=== PATIENT | male | born 1955 | race Caucasian/White ===

== ENCOUNTER 2020-10-27 10:13 | Outpatient (REF) | payer BC, SELFPAY ==
[2020-10-27 10:19] LABS: MANUAL DIFF FLAG NO
[2020-10-27 10:28] LABS: Basophils Absolute Auto 0.1 X10*3/uL (0.0-0.2); Basophils Percent Auto 0.8 % (0-2); Eosinophils Absolute Auto 0.3 X10*3/uL (0.0-0.4); Eosinophils Percent Auto 4.7 % (0-4); Hematocrit 41.9 % (42-52); Hemoglobin 13.8 g/dl (14.0-18.0); Imm Gran Abs Auto 0.02 X10*3/uL (0.00-0.03); Imm Gran Pct Auto 0.3 % (0.0-0.4); Lymphocytes Absolute Auto 1.7 X10*3/uL (1.2-4.9); Mean Corpuscular HGB Conc 32.9 g/dl (31.0-36.0); Mean Corpuscular Hemoglobin 29.1 pg (27.0-33.0); Mean Corpuscular Volume 88.4 fL (80-98); Monocytes Absolute Auto 0.7 X10*3/uL (0.1-1.2); Monocytes Percent Auto 10.6 % (2-11); Neutrophils Absolute Auto 3.7 X10*3/uL (2.0-8.3); Neutrophils Percent Auto 57.6 % (45-73); Platelet Count 283 X10*3/uL (160-400); Red Blood Count 4.74 X10*6/uL (4.60-5.80); Red Cell Distribution Width 13.6 % (11.0-16.0); White Blood Count 6.4 X10*3/uL (4.8-10.8)
[2020-10-27 10:54] LABS: Appearance Urine CLEAR; Color Urine YELLOW; Glucose Urine UA NEG (NEG); Leukocyte Esterase Urine NEG (NEG); Nitrite Urine NEG (NEG); PH 5.5 (5.0-8.0); Specific Gravity - Urine >= 1.030 (1.005-1.025); Urine Blood NEG (NEG); Urine Ketones NEG (NEG); Urine Protein NEG (NEG-TRACE)
[2020-10-27 11:15] LABS: Alanine Aminotransferase 14 U/L (0-40); Albumin Level 3.9 g/dL (3.5-5.0); Alkaline Phosphatase 57 U/L (39-117); Anion Gap 11 (12-20); Aspartate Amino Transferase 14 U/L (5-37); Bilirubin Total 0.3 mg/dL (0.0-1.0); Blood Urea Nitrogen 16 mg/dL (9-16); Calcium 9.2 mg/dL (8.4-10.2); Carbon Dioxide 25 mmol/L (22-29); Chloride 111 mmol/L (96-108); Cholesterol 167 mg/dL; Estimated Glomerular Filt Rate > 60; Glucose Fasting 96 mg/dL (60-99); HDL Cholesterol 43 mg/dL; LDL Cholesterol Calculated 105 mg/dl; Potassium 3.9 mmol/L (3.3-5.1); Sodium 143 mmol/L (135-145); Total Protein 6.3 g/dL (6.5-8.0); Triglycerides 97 mg/dL
[2020-10-27 11:25] LABS: Reflex LDLD? No
[2020-10-27 11:39] LABS: PSA,Total (Free>4and<10) 2.71 ng/mL (0.00-4.00)
== END 2020-10-27 10:14 | disposition home or self-care (01) ==
LOC: HO.LNP 10:13
PROVIDERS: Visit Provider Internal Medicine
DX: Z00.00 Encounter for general adult medical examination without abnormal findings (principal); E78.00 Pure hypercholesterolemia, unspecified; R97.20 Elevated prostate specific antigen [PSA]
CPT/HCPCS: 80053; 80061; 81003; 84153; 85025

== ENCOUNTER 2021-05-04 11:09 | Outpatient (REF) | payer BC, SELFPAY ==
[2021-05-04 12:25] LABS: Alanine Aminotransferase 12 U/L (0-40); Albumin Level 3.9 g/dL (3.5-5.0); Alkaline Phosphatase 69 U/L (39-117); Aspartate Amino Transferase 14 U/L (5-37); Bilirubin Direct 0.2 mg/dL (0.0-0.5); Bilirubin Total 0.5 mg/dL (0.0-1.0); Cholesterol 163 mg/dL; HDL Cholesterol 42 mg/dL; LDL Cholesterol Calculated 104 mg/dl; Total Protein 6.3 g/dL (6.5-8.0); Triglycerides 85 mg/dL
[2021-05-04 12:56] LABS: Reflex LDLD? No
== END 2021-05-04 11:10 | disposition home or self-care (01) ==
LOC: HO.LNP 11:09
PROVIDERS: PCP Internal Medicine; Visit Provider Internal Medicine
DX: E78.00 Pure hypercholesterolemia, unspecified (principal)
CPT/HCPCS: 80061; 80076

== ENCOUNTER 2021-10-30 15:37 | Outpatient (REF) | payer BC, SELFPAY ==
[2021-10-30 15:44] LABS: MANUAL DIFF FLAG NO
[2021-10-30 15:54] LABS: Appearance Urine Clear; Color Urine Dark Yellow; Glucose Urine UA Negative (Negative); Leukocyte Esterase Urine Negative (Negative); Nitrite Urine Negative (Negative); Specific Gravity - Urine >= 1.030 (1.005-1.025); Urine Blood Negative (Negative); Urine Ketones Negative (Negative); Urine Protein Negative (Neg-Trace)
[2021-10-30 15:56] LABS: Basophils Percent Auto 0.5 % (0-2); Eosinophils Absolute Auto 0.2 X10*3/uL (0.0-0.4); Eosinophils Percent Auto 2.4 % (0-4); Hematocrit 40.7 % (42.0-52.0); Hemoglobin 13.3 g/dl (14.0-18.0); Imm Gran Abs Auto 0.01 X10*3/uL (0.00-0.03); Imm Gran Pct Auto 0.2 % (0.0-0.4); Lymphocytes Absolute Auto 1.7 X10*3/uL (1.2-4.9); Lymphocytes Percent Auto 25.4 % (20-40); Mean Corpuscular HGB Conc 32.7 g/dl (31.0-36.0); Mean Corpuscular Hemoglobin 28.1 pg (27.0-33.0); Mean Platelet Volume 10.1 fL (9.4-12.4); Monocytes Absolute Auto 0.6 X10*3/uL (0.1-1.2); Monocytes Percent Auto 9.7 % (2-11); Neutrophils Absolute Auto 4.1 x10*3/uL (2.0-8.3); Neutrophils Percent Auto 61.8 % (45-73); Platelet Count 284 X10*3/uL (160-400); Red Blood Count 4.73 X10*6/uL (4.60-5.80); Red Cell Distribution Width 13.4 % (11.0-16.0); White Blood Count 6.6 X10*3/uL (4.8-10.8)
[2021-10-30 16:02] LABS: Bacteria Urine None Seen (None Seen); Hyaline Casts Urine 0-2 /LPF (0-2); RBC Urine 0-2 /HPF (0-2); Squamous Epithelial Cell Urine 0-2 /HPF (0-2); WBC Urine 0-5 /HPF (0-5)
[2021-10-30 16:08] LABS: Alanine Aminotransferase 14 U/L (0-40); Albumin Level 3.9 g/dL (3.5-5.0); Alkaline Phosphatase 59 U/L (39-117); Anion Gap 13 (12-20); Aspartate Amino Transferase 15 U/L (5-37); Bilirubin Direct 0.2 mg/dL (0.0-0.5); Bilirubin Total 0.6 mg/dL (0.0-1.0); Blood Urea Nitrogen 13 mg/dL (9-16); Carbon Dioxide 23 mmol/L (22-29); Chloride 110 mmol/L (96-108); Cholesterol 174 mg/dL; Estimated Glomerular Filt Rate > 60; Glucose Fasting 97 mg/dL (60-99); HDL Cholesterol 50 mg/dL; LDL Cholesterol Calculated 108 mg/dl; Potassium 3.6 mmol/L (3.3-5.1); Sodium 142 mmol/L (135-145); Total Protein 6.3 g/dL (6.5-8.0); Triglycerides 80 mg/dL
[2021-10-30 16:28] LABS: PSA,Total (Free>4and<10) 1.98 ng/mL (0.00-4.00)
== END 2021-10-30 15:38 | disposition home or self-care (01) ==
LOC: HO.LNP 15:37
PROVIDERS: Visit Provider Internal Medicine
DX: Z00.01 Encounter for general adult medical examination with abnormal findings (principal); J45.30 Mild persistent asthma, uncomplicated; E78.00 Pure hypercholesterolemia, unspecified; R97.20 Elevated prostate specific antigen [PSA]; Z12.5 Encounter for screening for malignant neoplasm of prostate
CPT/HCPCS: 80053; 80061; 80076; 81001; 82248; 84153; 85025

== ENCOUNTER 2022-11-05 07:15 | Outpatient (REF) | payer BC, SELFPAY ==
[2022-11-05 10:54] LABS: MANUAL DIFF FLAG NO
[2022-11-05 11:14] LABS: Basophils Absolute Auto 0.1 X10*3/uL (0.0-0.2); Basophils Percent Auto 0.8 % (0-2); Eosinophils Absolute Auto 0.3 X10*3/uL (0.0-0.4); Eosinophils Percent Auto 3.4 % (0-4); Hemoglobin 13.8 g/dl (14.0-18.0); Imm Gran Abs Auto 0.03 X10*3/uL (0.00-0.03); Imm Gran Pct Auto 0.4 % (0.0-0.4); Lymphocytes Absolute Auto 1.7 X10*3/uL (1.2-4.9); Lymphocytes Percent Auto 22.8 % (20-40); Mean Corpuscular HGB Conc 32.9 g/dl (31.0-36.0); Mean Corpuscular Hemoglobin 28.8 pg (27.0-33.0); Mean Corpuscular Volume 87.7 fL (80.0-98.0); Mean Platelet Volume 10.1 fL (9.4-12.4); Monocytes Absolute Auto 0.7 X10*3/uL (0.1-1.2); Neutrophils Absolute Auto 4.6 x10*3/uL (2.0-8.3); Neutrophils Percent Auto 62.6 % (45-73); Platelet Count 276 X10*3/uL (160-400); Red Blood Count 4.79 X10*6/uL (4.60-5.80); Red Cell Distribution Width 13.4 % (11.0-16.0); White Blood Count 7.3 X10*3/uL (4.8-10.8)
[2022-11-05 11:19] LABS: Appearance Urine Clear; Color Urine Yellow; Glucose Urine UA Negative (Negative); Leukocyte Esterase Urine Negative (Negative); Nitrite Urine Negative (Negative); PH 5.5 (5.0-9.0); Urine Blood Negative (Negative); Urine Ketones Negative (Negative); Urine Protein Negative (Neg-Trace)
[2022-11-05 11:25] LABS: Bacteria Urine None Seen (None Seen); Hyaline Casts Urine 0-2 /LPF (0-2); RBC Urine 0-2 /HPF (0-2); Squamous Epithelial Cell Urine 0-2 /HPF (0-2); WBC Urine 0-5 /HPF (0-5)
[2022-11-05 11:28] LABS: Alanine Aminotransferase 26 U/L (0-40); Albumin Level 3.8 g/dL (3.5-5.0); Alkaline Phosphatase 56 U/L (39-117); Anion Gap 10 (12-20); Aspartate Amino Transferase 20 U/L (5-37); Bilirubin Total 0.4 mg/dL (0.0-1.0); Blood Urea Nitrogen 14 mg/dL (9-16); Calcium 9.3 mg/dL (8.4-10.2); Carbon Dioxide 25 mmol/L (22-29); Chloride 109 mmol/L (96-108); Cholesterol 166 mg/dL (<200); Estimated Glomerular Filt Rate > 60; Glucose Random 101 mg/dL (60-115); HDL Cholesterol 46 mg/dL (>40); LDL Cholesterol Calculated 105 mg/dL (<100); Potassium 3.8 mmol/L (3.3-5.1); Sodium 140 mmol/L (135-145); Total Protein 6.6 g/dL (6.5-8.0); Triglycerides 78 mg/dL (<150)
[2022-11-05 11:49] LABS: Prostate Specific Antigen 1.85 ng/mL (<0.05-4.0)
== END 2022-11-05 07:16 | disposition home or self-care (01) ==
LOC: HO.LNP 07:15
PROVIDERS: Visit Provider Internal Medicine
DX: Z00.00 Encounter for general adult medical examination without abnormal findings (principal); Z12.5 Encounter for screening for malignant neoplasm of prostate; R97.20 Elevated prostate specific antigen [PSA]; E78.00 Pure hypercholesterolemia, unspecified
CPT/HCPCS: 80053; 80061; 81001; 84153; 85025

== ENCOUNTER 2023-11-22 10:35 | Outpatient (REF) | payer BC, SELFPAY ==
[2023-11-22 10:38] LABS: MANUAL DIFF FLAG NO
[2023-11-22 11:14] LABS: Appearance Urine Clear; Color Urine Dark Yellow; Glucose Urine UA Negative (Negative); Leukocyte Esterase Urine Negative (Negative); Nitrite Urine Negative (Negative); PH 5.5 (5.0-9.0); Specific Gravity - Urine >= 1.030 (1.005-1.025); Urine Blood Negative (Negative); Urine Ketones Trace mg/dL (Negative); Urine Protein Trace mg/dL (Neg-Trace)
[2023-11-22 11:22] LABS: Bacteria Urine None Seen (None Seen); Hyaline Casts Urine 0-2 /LPF (0-2); RBC Urine 0-2 /HPF (0-2); Squamous Epithelial Cell Urine 0-2 /HPF (0-2); WBC Urine 0-5 /HPF (0-5)
[2023-11-22 11:35] LABS: Basophils Absolute Auto 0.1 X10*3/uL (0.0-0.2); Basophils Percent Auto 1.1 % (0-2); Eosinophils Absolute Auto 0.3 X10*3/uL (0.0-0.4); Eosinophils Percent Auto 4.7 % (0-4); Hematocrit 42.9 % (42.0-52.0); Hemoglobin 14.2 g/dl (14.0-18.0); Imm Gran Abs Auto 0.01 X10*3/uL (0.00-0.03); Imm Gran Pct Auto 0.2 % (0.0-0.4); Lymphocytes Absolute Auto 1.7 X10*3/uL (1.2-4.9); Lymphocytes Percent Auto 30.1 % (20-40); Mean Corpuscular HGB Conc 33.1 g/dl (31.0-36.0); Mean Corpuscular Hemoglobin 28.9 pg (27.0-33.0); Mean Corpuscular Volume 87.4 fL (80.0-98.0); Mean Platelet Volume 9.8 fL (9.4-12.4); Monocytes Absolute Auto 0.7 X10*3/uL (0.1-1.2); Neutrophils Absolute Auto 2.9 x10*3/uL (2.0-8.3); Neutrophils Percent Auto 50.9 % (45-73); Platelet Count 294 X10*3/uL (160-400); Red Blood Count 4.91 X10*6/uL (4.60-5.80); Red Cell Distribution Width 13.4 % (11.0-16.0); White Blood Count 5.7 X10*3/uL (4.8-10.8)
[2023-11-22 11:42] LABS: Alanine Aminotransferase 15 U/L (0-40); Albumin Level 3.9 g/dL (3.5-5.0); Alkaline Phosphatase 66 U/L (39-117); Anion Gap 13 (12-20); Aspartate Amino Transferase 17 U/L (5-37); Bilirubin Total 0.5 mg/dL (0.0-1.0); Blood Urea Nitrogen 15 mg/dL (9-16); Calcium 9.5 mg/dL (8.4-10.2); Carbon Dioxide 24 mmol/L (22-29); Chloride 111 mmol/L (96-108); Cholesterol 169 mg/dL (<200); Estimated Glomerular Filt Rate > 60; Glucose Fasting 107 mg/dL (60-99); HDL Cholesterol 44 mg/dL (>40); LDL Cholesterol Calculated 110 mg/dL (<100); Potassium 4.2 mmol/L (3.3-5.1); Sodium 144 mmol/L (135-145); Total Protein 6.6 g/dL (6.5-8.0); Triglycerides 79 mg/dL (<150)
[2023-11-22 11:50] LABS: PSA,Total (Free>4and<10) 2.42 ng/mL (0.00-4.00)
== END 2023-11-22 10:36 | disposition home or self-care (01) ==
LOC: HO.LNP 10:35
PROVIDERS: Visit Provider Internal Medicine
DX: Z00.00 Encounter for general adult medical examination without abnormal findings (principal); E78.00 Pure hypercholesterolemia, unspecified; R97.20 Elevated prostate specific antigen [PSA]; Z12.5 Encounter for screening for malignant neoplasm of prostate
CPT/HCPCS: 80053; 80061; 81001; 84153; 85025

== ENCOUNTER 2023-11-29 13:31 | Outpatient (REF) | payer BC, SELFPAY ==
--- NOTE | ~2023-11-29 | XR_ITS ---
EXAMINATION: XR ANKLE, LEFT CLINICAL INFORMATION: Left ankle injury, pain COMPARISON: None available. TECHNIQUE: AP, lateral, and mortise views of the left ankle. FINDINGS: No acute fracture or malalignment. The ankle mortise is preserved. There is a chronic ossification at the tip of the distal fibula. Diffuse subcutaneous edema. XR/XR ankle LT min 3V IMPRESSION: No acute fracture or malalignment. Diffuse subcutaneous edema. Electronically signed by: Deshawn Hilario MD 11/29/2023 03:51 PM EDT
== END 2023-11-29 13:32 | disposition home or self-care (01) ==
LOC: HO.XRAY 13:31
PROVIDERS: PCP Internal Medicine; Visit Provider Internal Medicine
DX: S99.912A Unspecified injury of left ankle, initial encounter (principal)
CPT/HCPCS: 73610

== ENCOUNTER 2024-05-19 10:17 | Outpatient (REF) | payer BC, SELFPAY ==
[2024-05-19 11:06] LABS: Alanine Aminotransferase 12 U/L (0-40); Albumin Level 3.9 g/dL (3.5-5.0); Alkaline Phosphatase 58 U/L (39-117); Aspartate Amino Transferase 25 U/L (5-37); Bilirubin Direct 0.2 mg/dL (0.0-0.5); Bilirubin Total 0.4 mg/dL (0.0-1.0); Cholesterol 172 mg/dL (<200); HDL Cholesterol 46 mg/dL (>40); LDL Cholesterol Calculated 113 mg/dL (<100); Triglycerides 67 mg/dL (<150)
--- OUTSIDE RECORDS SUMMARY | 2024-05-19 12:10 | XMS_ITS | Encounter Summary ---
Author Name [facility] ([place]) Organization [facility] Address [address] [place] [id number] Care Team Providers Care Wallpaper Scraper Name Role Phone KI HEDRICK Primary Care [...] Hoover's Name Patient's Relationship to Policy Hoover EBNJAMÍN [facility] FEDERAL PREFERRED PROVIDER ORGANIZAT ION (PPO) STAND GEOVANNY FAMIL Y Apr 05, 2001 [id number] CASIE BOO PATIENT BCBS [place] FEP PREFERRED PROVIDER ORGANIZAT ION (PPO) PSHB STD SELF PLUS 1 Mar 11, 2024 [id number] CASIE BOO EPH PATIENT [place] FEP PREFERRED PROVIDER ORGANIZAT ION (PPO) STAND GEOVANNY FAMIL Y Oct 27, 2009 105 [id number] CASIE BOO PATIENT [place] FEP BCBS PRESCRIPT ION CAREM ARK FEPRX PLAN July 27, 2010 [id number] CASIE BOO PATIENT [place] FEPRX PLAN PRESCRIPT ION CAREM ARK FEPRX Apr 05, 2001 [id number] CASIE BOO PATIENT Selected Encounter This section includes the information on record at [place] for the Encounter. Date/Time Encounter Type Encounter Description Reason Provider Source Apr 10, 2024 01:30 PM OFFICE O/P EST MOD 30 MIN PRIMARY CARE/MEDICINE ICD-10-CM N20.0 Calculus of kidney RAJWILL STEW F IHE Encounter Template Text not used by [place] Assessments - Encounter Diagnoses This section includes the primary and secondary diagnoses documented for the Encounter. Date/Time Primary/Secondary Diagnosis Diagnosis Name Provider Source Apr 25, 2024 07:47 AM PRIMARY Calculus of kidney [facility]DA [facility]EDR[facility] Apr 25, 2024 07:47 AM SECONDARY Encounter for immunization ALDA HEDRICK [facility] [place] [facility] Apr 25, 2024 07:47 AM SECONDARY Hyperlipidemia, unspecified ALDA HEDRICK [facility] Plan of Treatment: Future Appointments (+ 6 months) and Future Tests (+/- 45 days) The Plan of Treatment section includes future care activities for the patient from all [place] treatmentfacilities. This section includes future appointments and [...] of theEncounter. The data comes from all [place] treatment facilities. Test Date/Time Test Type Test Details Facility Name Mar 05, 2024 12:00 AM Laboratory - Chemi stry Order BASIC METABOLIC PANEL (fasting) BLOOD (SST-SERUM) [facility] Mar 05, 2024 12:00 AM Laboratory - Chemi stry Order LIVER FUNCTION BLOOD (SST-SERUM) [facility] Mar 05, 2024 12:00 AM Laboratory - Chemi stry Order CBC AND DIFF (AUTO) BLOOD (LAV-BLOOD) [facility] Mar 05, 2024 12:00 AM Laboratory - Chemi stry Order LIPID PANEL FASTING BLOOD (SST-SERUM) [facility] Lab Results: +/- 30 days of the encounter This section includes the Chemistry and Hematology Lab Results on record with [place] for the patient. Radiology Reports and Pathology Reports are provided separately, in subsequent sections. Lab Results This section contains the Chemistry/Hematology Results that were resulted 30 days before or 30 daysafter the date of the Encounter. Date/Time Source Result Type Result - Unit Interpretation Reference Range Comment Apr 10, 2024 12:38 PM [facility] LIPID PANEL FASTING Specimen Type: SERUM No comment entered. Ordering Provider: ALDA HEDRICK Report Released Date/Time: Apr 01, 2024 10:17 AM Reporting Lab: [address] [address] Performing Lab: [address] [address] CHOLESTEROL 206 mg/dL H TRIGLYCERIDE 88 mg/dL 0-150 LDL calculated 142 mg/dL H 0-129 CHOL/HDL 4.5 HDL CHOLESTEROL 46 mg/dL 40-60 Apr 10, 2024 12:38 PM [facility] LIVER FUNCTION Specimen Type: SERUM No comment entered. Ordering Provider: ALDA HEDRICK Report Released Date/Time: Apr 01, 2024 10:17 AM Reporting Lab: [address] [address] Performing Lab: [address] [address] PROTEIN,TOTAL 6.6 g/dL 6.0-8.3 ALBUMIN 3.5 g/dL 3.5-5.0 ALKALINE PHOSPHATASE 60 U/L 40-150 AST 15 U/L 5-34 ALT 16 U/L BILIRUBIN, TOTAL 0.4 mg/dL 0.2-1.2 Apr 10, 2024 12:38 PM [facility] BASIC METABOLIC PANEL (fasting) Specimen Type: SERUM No comment entered. Ordering Provider: ALDA HEDRICK Report Released Date/Time: Apr 01, 2024 10:17 AM Reporting Lab: [facility] [address] [facility] [address] Performing Lab: [facility] [address] [facility] [address] UREA NITROGEN 16 mg/dL 7-25 GLUCOSE 95 mg/dL 65-100 SODIUM 141 mmol/L 135-145 POTASSIUM 4.3 mmol/L 3.5-5.0 CHLORIDE 110 mmol/L 100-110 CO2 22 meq/L 20-30 CREATININE, Serum 0.95 mg/dL 0.50-1.40 eGFR(CKD-EPI 2020) 86 mL/min >60 Apr 10, 2024 12:38 PM [facility] CBC AND DIFF (AUTO) Specimen Type: BLOOD No comment entered. Ordering Provider: ALDA HEDRICK Report Released Date/Time: Apr 01, 2024 10:17 AM Reporting Lab: [facility] [address] [facility] [address] Performing Lab: [address] [address] WBC 5.67 10*3/uL 4.50-11.00 RBC 4.61 10*6/uL [...] 0.4 0.0-0.7 IMMATURE GRAN, ABS 0.02 10*3/uL 0.00-0.06 NRBC % 0.0 0.0-0.0 NRBC, ABS 0.00 10*3/uL 0.00-0.00 Vital Signs: All taken on the encounter date This section contains inpatient and outpatient Vital Signs collected on the date of the Encounter. Date/Time Temperature Pulse Blood Pressure Respiratory Rate SP02 Pain Height Weight Body Mass Index Source Apr 10, 2024 01:20 PM 98.4 74 140/90 16 98 0 218 31 [place] [facility] [place] [facility] Immunizations: All administered on the encounter date This section contains immunizations associated to the Encounter. Immunization Series Date Issued Reaction Comments TDAP Apr 10, 2024 Social History: Smoking Status (Most current) and Tobacco Use (All prior to encounter date) This section includes the most current, and the historical, smoking and tobacco- related health factors from the [place] facility where the Encounter took place. Current Smoking Status This section includes the most current smoking, or tobacco-related health factor, from the [place] facility where the Encounter took place. Date/Time Current Smoking Status Comment [facility] Apr 10, 2024 01:30 PM VA-TOBACCO USE FOR ARTI CIGARETTES [facility] Tobacco Use History This section includes a history of the smoking, or tobacco-related health factors, that were collected on or before the date of the Encounter. The data comes from the [place] facility where the Encounter took place. Date/Time Smoking Status/Tobac co Use Comment Facility Apr 10, 2024 01:30 PM VA-TOBACCO USE FORMER CIGARETTES [place] [facility] [place] [facility] Mar 05, 2023 08:00 AM VA-TOBACCO FORMER USER [place] [facility] [place] [facility] Mar 05, 2023 08:00 AM VA-TOBACCO QUIT 15 YRS OR MORE [place] [facility] [place] [facility] Mar 06, 2022 08:30 AM VA-TOBACCO FORMER USER [place] [facility] [place] [facility] Mar 06, 2022 08:30 AM VA-TOBACCO QUIT 15 YRS OR MORE [place] [facility] [place] [facility] Mar 06, 2021 08:30 AM VA-TOBACCO FORMER USER [place] [facility] [place] [facility] Mar 06, 2021 08:30 AM VA-TOBACCO QUIT 15 YRS OR MORE [place] [facility] [place] [facility] Feb 02, 2020 08:00 AM VA-TOBACCO FORMER USER [place] [facility] [place] [facility] Feb 02, 2020 08:00 AM VA-TOBACCO QUIT 15 YRS OR MORE [place] [facility] [place] [facility] Oct 28, 2017 08:55 AM LIFETIME NON-TOBACCO USER [place] [facility] [place] [facility] Sep 04, 2016 01:54 PM QUIT TOBACCO USE > 7 YEARS AGO [place] [facility] [place] [facility] Aug 18, 2015 08:48 AM QUIT TOBACCO USE > 7 YEARS AGO quit 50 yrs ago [place] [facility] [place] [facility] Apr 24, 2011 01:09 PM QUIT TOBACCO USE > 7 YEARS AGO [place] [facility] [place] [facility] Apr 10, 2010 09:50 AM QUIT TOBACCO USE 1-7 YEARS AGO [place] [facility] [place] [facility] Jul 08, 2009 08:35 AM QUIT TOBACCO USE 1-7 YEARS AGO [place] [facility] [place] [facility] July 20, 2008 09:56 AM QUIT TOBACCO USE 1-7 YEARS AGO [place] [facility] [place] [facility] Aug 13, 2007 08:25 AM QUIT TOBACCO USE 1-7 YEARS AGO [place] [facility] [place] [facility] Jun 23, 2007 08:00 AM QUIT TOBACCO USE 1-7 YEARS AGO [place] [facility] [place] [facility] Jan 09, 2007 07:56 AM QUIT TOBACCO USE IN PAST YEAR [place] [facility] [place] [facility] Mar 14, 2006 09:05 AM QUIT TOBACCO USE 1-7 YEARS AGO I quit in October. [place] [facility] [place] [facility] Feb 28, 2006 08:06 AM QUIT TOBACCO USE IN PAST YEAR QUIT OCTOBER 2005 [facility] [place] [facility] Advance Directives: All historical and current Section Date Range: From patient's date of to the date document was created. This section includes ALL of a patient's completed or amended [place] Advance and Rescinded Directives. The entries below indicate that a directive exists for the patient, but an actual copy is not included with this document. The data comes from all [place] facilities. Date Advance Directives Provider Source Sep 24, 2002 ADVANCE DIRECTIVE GAURAVROXANA P [facility] Encounter Notes: All associated encounter notes This section contains the clinical notes associated to the Encounter. Date/Time Encounter Note(s) Provider Source Apr 10, 2024 03:18 PM LETTERS: LOCAL TITLE: PATIENT LETTER (B) STANDARD TITLE: LETTERS DATE OF NOTE: APR 10, 2024@15:18 ENTRY DATE: APR 10, 2024@15:18:16 AUTHOR: KI HEDRICK EXP COSIGNER: URGENCY: STATUS: COMPLETED The following letter was mailed to ADOLFO BOO on APR 10, [address] [place] [id number] APR 10, [address], : Feb Your recent labs were as expected. No change in your care plan is needed. Please share with any NONVA providers. Results are viewable thru [facility]. Below are your pending appointments at the [facility]: 04/09/2025 08:00 CWM/NO/PACT 3 If you have questions, please contact me through our Telephone Advice Program at: [phone] extension [phone] or [phone] extension [phone] (toll free in this region only). Sincerely, Ki Hedrick PA-C [address] [address] Ex KI HEDRICK [facility] Apr 10, 2024 01:38 PM PHYSICIAN VOCAL MUSIC INSTRUCTOR NOTE: LOCAL TITLE: LÓPEZ CARDOZA STANDARD TITLE: PHYSICIAN VOCAL MUSIC INSTRUCTOR NOTE DATE OF NOTE: APR 10, 2024@13:38 [...] the source for the followin. Kidney Stone ([facility] [id number]) 2. Exposure to potentially hazardous substance Original RANDALL Screening completed 03/06/24 3. Hyperlipidemia ([facility] [id number]) 4. Arthritis, Psoriatic * 5. Osteoarthritis 6. [...] DAY 6) Non-VA OTHER CAP/TAB DULERA ACTIVE ([id number] 2PUFFS BY MOUTH TWICE DAILY 7) Non-VA [...] an Advance Directive on file at this [facility]. No updates are needed at this time. [...] you were unable to say no Never ?? The HITS tool (items 1-4 above) is [place] copyright protected by Vickey Perdomo MD, and the user has full rights to use it throughout the [place] system. PRIMARY SCREEN RESULT: The Primary Screen is NEGATIVE. The individual answered never to all forms of IPV above (i.e., answered never to all 5 items) The individual accepts education and/or resources: Other: EDUCATION: Other: /guerrero/ Ki Hedrick PA-C STAFF PHYSICIAN VOCAL MUSIC INSTRUCTOR Signed: 04/10/2024 13:42 KI HEDRICK [place] [facility] [place] [facility] Apr 10, 2024 01:21 PM PREVENTIVE MEDICINE NURSING NOTE: LOCAL TITLE: CLINICAL REMINDERS/NURSING STANDARD TITLE: PREVENTIVE MEDICINE NURSING NOTE DATE OF NOTE: APR 10, 2024@13:21 ENTRY DATE: APR 10, 2024@13:21:17 AUTHOR: JOSE LEMONS EXP COSIGNER: URGENCY: STATUS: COMPLETED CLINICAL REMINDERS/NURSING Has ADDENDA Suicide Screen: C-SSRS Screening [place] Suicide Severity Rating Scale (C-SSRS) screener 1. [...] Not worried about housing near future The reports the following: Within the past 12 [...] guard, watchful, or easily startled? YES 5. [place] numb or detached from people, activities, or your surroundings? YES 6. [place] guilty or unable to stop blaming yourself or others for the event(s) or any problems the event(s) may have caused? NO Tobacco Use Screening: The patient is a former cigarette smoker. The patient has never used other types of tobacco. /guerrero/ JOSE LEMONS LPN Signed: 04/10/2024 13:24 04/10/2024 ADDENDUM STATUS: [...] Administered: Apr 10, 2024 13:30 Series: Booster Tungsten Refiner: CHORD Lot: [id number] Exp Date: May 27, 2026 [facility]: [id number] Admin Route/Site: INTRAMUSCULAR/RIGHT DELTOID Dosage: 0.5mL Vaccine Information Statement(s): TDAP (TETANUS, DIPHTHERIA, PERTUSSIS) VACCINE VIS Oct 14, 2020 ([place]) Order By: Policy Administered By: Jose Lemons Vaccine Information Sheet (VIS) was given to the patient/caregiver, education regarding adverse reactions was discussed, as well as barriers to learning, if any, were acknowledged. /guerrero/ JOSE LEMONS LPN Signed: 04/10/2024 13:40 JOSE LEMONS [place] [facility]
--- OUTSIDE RECORDS SUMMARY | 2024-05-19 12:10 | XMS_ITS ---
Author Organization Yosi Da Silva MD Address [address] [place] [phone] Care Team Providers Care Machine Driller Name Role Phone Yosi Da Silva Primary Care Provider [phone] Allergies No Known Allergies Results Component Value Reference Range Notes XR ankle LT min 3V Reviewed date:12/02/2023 08:51:27 AM Interpretation: Performing Lab: Notes/Report: [address] [address] XRay Report Signed Patient: Heriberto Boo MR#: [id number] 50 : 1955 Acct:[id number] Age/Sex: 68 / M ADM Date: 11/29/23 Loc: HO.XRAY Attending Dr: Yosi Da Silva MD Ordering Physician: Yosi Da Silva MD Date of Service: 11/29/23 Procedure(s): XR ankle LT min 3V Accession Number(s): [id number] cc: Yosi Da Silva MD EXAMINATION: XR ANKLE, LEFT CLINICAL INFORMATION: Left ankle injury, pain COMPARISON: None available. TECHNIQUE: AP, lateral, and mortise views of the left ankle. FINDINGS: No acute fracture or malalignment. The ankle mortise is preserved. There is a chronic ossification at the tip of the distal fibula. Diffuse subcutaneous edema. XR/XR ankle LT min 3V IMPRESSION: No acute fracture or malalignment. Diffuse subcutaneous edema. Electronically signed by: Deshawn Hilario MD 11/29/2023 03:51 PM EDT RP Dictated By: Deshawn Hilario MD Signed By: <Electronically signed by Deshawn Hilario MD in OV> 11/29/23 1551 DD/ 1338 TD/TT: 11/29/23 1355 Tube Coverer: HUMPHREY [address] [address] XRay Report Signed Patient: Tucker Boo MR#: [id number] 50 : 1955 Acct:[id number] Age/Sex: 68 / M ADM Date: 11/29/23 Loc: HO.XRAY Attending Dr: Yosi Da Silva MD Ordering Physician: Yosi Da Silva MD Date of Service: 11/29/23 Procedure(s): XR ankle LT min 3V Accession Number(s): [id number] cc: Yosi Da Silva MD EXAMINATION: XR ANKLE, LEFT CLINICAL INFORMATION: Left ankle injury, pain COMPARISON: None available. TECHNIQUE: AP, lateral, and mor tise views of the left ankle. FINDINGS: No acute fracture or malalignment. The ankle mortise is preserved. There is a chronic o ssification at the tip of the distal fibula. Diffuse subcutaneous edema. X R/XR ankle LT min 3V IMPRESSION: No acute fracture or malalignment. Diffuse subcutaneous edema. Electronically magda d by: Deshawn Hilario MD 11/29/2023 03:51 PM EDT RP Dictated By: Deshawn Null MD Signed By: <Electron ariadna signed by Deshawn Hilario MD in OV> 11/29/23 1551 DD/ 1338 TD/TT: 11/29/23 1355 Tube Coverer: HUMPHREY REASON FOR VISIT ANNUAL EXAM, c/o left ankle pain after recent fall off a ladder Medications Medication SIG (Take, Route, Frequency, Duration) Notes Start Date End Date Status Stelara 45 MG/0.5ML as directed Subcutan eous every 3 months Not-Taking EpiPen 2-Ruiz 0.3 MG/0.3ML Injection Not-Taking Dulera 200-5 MCG/ACT 2 puffs Inhalation Twice a day Not-Taking ProAir HFA 108 (90 Base) MCG/ACT 2 puffs as needed Inhalation every 4 hrs for 30 days 07/21/2012 Not-Taking Simvastatin 20 MG 1 tablet every eveni ng Orally Once a day Active Flonase 50 MCG/ACT 1 spray in each nost ril Nasally Once a day Active Terazosin HCl 5 MG 2 capsule Orally Onc e a day Active Skyrizi (150 MG Dose) 75 MG/0.83ML 1.66 ml Subcutaneous once every 3 months Active Pantoprazole Sodium 40 MG 1 tablet Orally Once a day for 90 days Active Nasacort AQ Active Opzelura 1.5 % 1 application Proof Coins Inspector ally Twice a day Active Social History Tobacco Use: Social History Observation Description Date Details (start date - stop date) Former Smoker NA - NA Tobacco Use/Smoking Question Answer Notes Patient is a former smoker How long has it been since y ou last smoked? > 10 years Additional Findings: Tobacco Non-User Fo rmer smoker, currently using no form of tobacco Alcohol Screen Question Answer Notes Did you have a drink contain ing alcohol in the past year? Yes How often did you have a dri nk containing alcohol in the past year? 2 to 4 times a month (2 points) How many drinks did you have on a typical day when you were drinking in the past year? 1 or 2 drinks (0 point) How often did you have 6 or more drinks on one occasion in the past year? Never (0 point) Points 2 Interpretation Negative Vital Signs Blood pressure systolic 122 mm Hg 11/29/19 24 Blood pressure diastolic 76 mm Hg 024 Height 70.25 in 11/29/2023 Weight 211 lbs 11/29/2023 BMI 30.06 kg/m2 11/29/2023 weight is up 5 pounds since 11-09-22 Encounters Encounter Location Date Provider Diagnosis Yosi Da Silva MD [address] [place] [address] [place] [phone] 11/29/2023 Yosi Da Silva Injury of left ankle , initial encounter S99.912A ; Pure hypercholesterolemia E78.00 ; Mild persistent asthma without complication J45.30 and Elevated PSA R97.20 Assessments Encounter Date Diagnosis (ICD Code) Assessment Notes Treatment Notes Treatment Clinical Notes Section Notes 11/29/2023 Injury of left ankle , initial encounter (ICD-10 - S99.912A) order given to patient 11/29/2023 Pure hypercholesterolemia (ICD-10 - E78.00) well controlled 11/29/2023 Mild persistent asth ma without complication (ICD-10 - J45.30) 11/29/2023 Elevated PSA (ICD-10 - R97.20) is normal Plan Of Treatment Treatment Notes Assessment Notes Injury of left ankle, initial encounter order given to patient Pure hypercholesterolemia well controlle d Elevated PSA is normal Next Appt Details Follow Up: 3 Weeks, Reason: Provider Name:Yosi López ier, 05/26/2024 09:00:00 AM, [address] [place] [address], [address], [phone], Provider Name:Yosi López ier, 11/26/2024 07:15:00 AM, [address] [place] [address], [address], [phone], Provider Name:Yosi López ier, 12/03/2024 09:30:00 AM, [address] [place] [address], [address], [phone], Progress Notes * Heriberto BOODOB:1955 (68 yo M)Acc No.[id number]:11/29/2023 Progress Notes Patient:?Wyatt Heriberto Provider:?Yosi Da Silva MD :1955???Age:68 Y???Sex:Male Carmelo e:11/29/2023 Address:[address] [place], [place] [phone] Subjective: * Chief Complaints: * ???ANNUAL EXAMC/o left ankle pain after recent fall off a ladder * HPI: ???Depression Screening:?PHQ-9?Little interest or pleasure in doing things?Not at all,?Feeling down, depressed, or hopeless?Not at all,?Trouble falling or staying asleep, or sleeping too much?Not at all,?Feeling tired or having little energy?Not at all,?Poor appetite or overeating?Not at all,?Feeling bad about yourself or that you are a failure, or have let yourself or your family down?Not at all,?Trouble concentrating on things, such as reading the newspaper or watching television?Not at all,?Moving or speaking so slowly that other people could have noticed; or the opposite, being so fidgety or restless that you have been moving around a lot more than usual?Not at all,?Thoughts that you would be better off or of hurting yourself in some way?Not at all,?Total Score?0.? pt is a 68 yo male who had kidney stone irving/ had been working and having sciatica and fell from 10 feet off ladder. 3 days ago happened. felt a crunch in anklesore in achilles and in ankleis able to walk on it. ???Communication Needs:?Communication Needs?Does the patient have a hearing impairment?No,?Does the patient have a vision impairment??Yes,?If yes, what is the vision impairment??Glasses,?Does the patient have a cognition impairment??No.?Fall Risk:?History?Have you had any falls with injury in the past year??Yes 11-27-23 fell off a ladder 10 feet high landed standing knees buckled and now has left ankle pain. Did not go to ER,?Have you had two or more falls in the past year??No.?SDOH Questions:?SDOH Questions?In the past year have you been worried about losing housing??No,?In the past year have you or any family members you live with been unable to get any of the following when it was really needed? Check all that apply:?None.? * ROS:?General/Constitutional:?Change in appetite?denies.?Chills?denies.?Fever?denies.?Ophthalmologic:?Blurred vision?denies.?Discharge?denies.?Pain?denies.?ENT:?Decreased hearing?denies.?Sore throat?denies.?Swollen glands?denies.?Endocrine:?Cold intolerance?denies.?Excessive thirst?denies.?Heat intolerance?denies.?Weight loss?denies.?Respiratory:?Cough?denies.?Shortness of breath at rest?denies.?Shortness of breath with exertion?denies.?Wheezing?denies.?Cardiovascular:?Chest pain at rest?denies.?Chest pain with exertion?denies.?Irregular heartbeat?denies.?Shortness of breath?denies.?Gastrointestinal:?Abdominal pain?denies.?Change in bowel habits?denies.?Diarrhea?denies.?Nausea?denies.?Rectal bleeding?denies.?Vomiting?denies .?Genitourinary:?Blood in urine?denies.?Difficulty urinating?denies.?Frequent urination?denies.?Musculoskeletal:?Painful joints?denies.?Weakness?denies.?Skin:?Dry skin?denies.?Itching?denies.?Denies?Mole(s),? changes in moles, new moles or any lesions of concern.?Denies?Photosensitivity.?Rash?denies.?Neurologic:?Dizziness?denies.?Fainting?denies.?Headache?denies.? * Medical History:? * Surgical History:? * Hospitalization/Major Diagno stic Procedure:? * Family History:?Father: dece ased.?Mother: 83 yrs, diagnosed with Cancer.?1 sister(s) . .? Father-Unknown 1 sister Mother- Cancer, Denies mental health/substance abuse family history, Denies mental health/substance abuse family history, No pertinent family medical history. * Social History:?Tobacco Use:?Tobacco Use/Smoking?Patient is a?former smoker,?How long has it been since you last smoked??> 10 years,?Additional Findings: Tobacco Non-User?Former smoker, currently using no form of tobacco.?Drugs/Alcohol:?Alcohol Screen?Did you have a drink containing alcohol in the past year??Yes,?How often did you have a drink containing alcohol in the past year??2 to 4 times a month (2 points),?How many drinks did you have on a typical day when you were drinking in the past year??1 or 2 drinks (0 point),?How often did you have 6 or more drinks on one occasion in the past year??Never (0 point),?Points?2,?Interpretation?Negative.?Miscellaneous:?Caffeine: yes, frequency:, more than 4 cups per day. no Children. no Community involvements. 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 Home smoke detector use: yes. Housing: owning. Living with: spouse. Marital status: . Occupation: works full-time. Pets: cat X1. no Travel outside of the [place]. * Medications:?TakingOpzelura 1.5 % Cream 1 application Externally Twice a dayNasacort AQ Flonase 50 MCG/ACT Suspension 1 spray in each nostril Nasally Once a dayPantoprazole Sodium 40 MG Tablet Delayed Release 1 tablet Orally Once a daySkyrizi (150 MG Dose) 75 MG/0.83ML Prefilled Syringe Kit 1.66 ml Subcutaneous once every 3 monthsTerazosin HCl 5 MG Capsule 2 capsule Orally Once a daySimvastatin 20 MG Tablet 1 tablet every evening Orally Once a dayTaking Opzelura 1.5 % Cream 1 application Externally Twice a dayTaking Nasacort AQ Taking Flonase 50 MCG/ACT Suspension 1 spray in each nostril Nasally Once a dayTaking Pantoprazole Sodium 40 MG Tablet Delayed Release 1 tablet Orally Once a dayTaking Skyrizi (150 MG Dose) 75 MG/0.83ML Prefilled Syringe Kit 1.66 ml Subcutaneous once every 3 monthsTaking Terazosin HCl 5 MG Capsule 2 capsule Orally Once a dayTaking Simvastatin 20 MG Tablet 1 tablet every evening Orally Once a dayNot-Taking/PRNDulera 200-5 MCG/ACT Aerosol 2 puffs Inhalation Twice a dayProAir HFA 108 (90 Base) MCG/ACT Aerosol Solution 2 puffs as needed Inhalation every 4 hrsStelara 45 MG/0.5ML Solution as directed Subcutaneous every 3 monthsEpiPen 2-Ruiz 0.3 MG/0.3ML Solution Auto-injector Injection Not-Taking/PRN Dulera 200-5 MCG/ACT Aerosol 2 puffs Inhalation Twice a dayNot-Taking/PRN ProAir HFA 108 (90 Base) MCG/ACT Aerosol Solution 2 puffs as needed Inhalation every 4 hrsNot-Taking/PRN Stelara 45 MG/0.5ML Solution as directed Subcutaneous every 3 monthsNot- Taking/PRN EpiPen 2-Ruiz 0.3 MG/0.3ML Solution Auto-injector Injection DiscontinuedDupixent 300 MG/2ML Solution Pen-injector as directed Subcutaneous Medication List reviewed and reconciled with the patientDiscontinued Dupixent 300 MG/2ML Solution Pen- injector as directed Subcutaneous Medication List reviewed and reconciled with the patient * Allergies:?N.K.D.A.yes[Aller gies Verified] Objective: * Vitals:?Ht: 70.25, Wt:211, B FL:30.06, BP:122/76 weight is up 5 pounds since 11-09-22. * ???Past Orders: ???Lab:Complete Blood Count Auto Diff (Order Date - 11/22/2023) (Collection Date - 11/22/2023) ? Value Reference Range ?White Blood Count 5.7 4. 8-10.8 - X10*3/uL ?Red Blood Count 4.91 4.60 -5.80 - X10*6/uL ?Hemoglobin 14.2 14.0-18.0 - g/dl ?Hematocrit 42.9 42.0-52.0 - % ?Mean Corpuscular Volume 87.4 80.0-98.0 - fL ?Mean Corpuscular Hemoglobin 28.9 27.0-33.0 - pg ?Mean Corpuscular HGB Conc 33.1 31.0-36.0 - g/dl ?Red Cell Distribution Width 13.4 11.0-16.0 - % ?Platelet Count 294 160-4 00 - X10*3/uL ?Mean Platelet Volume 9.8 9.4-12.4 - fL ?Neutrophils Percent Auto 50.9 45-73 - % ?Imm Gran Pct Auto 0.2 0. 0-0.4 - % ?Lymphocytes Percent Auto 30.1 20-40 - % ?Monocytes Percent Auto 13.0 H 2-11 - % ?Eosinophils Percent Auto 4.7 H 0-4 - % ?Basophils Percent Auto 1.1 0-2 - % ?NRBC Pct Auto 0.0 0.0-0. 2 - /100WBC ?Neutrophils Absolute Auto 2.9 2.0-8.3 - x10*3/uL ?Imm Gran Abs Auto 0.01 0. 00-0.03 - X10*3/uL ?Lymphocytes Absolute Auto 1.7 1.2-4.9 - X10*3/uL ?Monocytes Absolute Auto 0.7 0.1-1.2 - X10*3/uL ?Eosinophils Absolute Auto 0.3 0.0-0.4 - X10*3/uL ?Basophils Absolute Auto 0.1 0.0-0.2 - X10*3/uL ?NRBC Abs Auto 0.000 0.0-0. 012 - X10*3/uL ???Lab:Comprehensive [place]. P faviola Fast (Order Date - 11/22/2023) (Collection Date - 11/22/2023) ? Value Reference Range ?Sodium 144 135-145 - mmo l/L ?Bilirubin Total 0.5 0.0- 1.0 - mg/dL ?Aspartate Amino Transferase 17 5-37 - U/L ?Alanine Aminotransferase 15 0-40 - U/L ?Total Protein 6.6 6.5-8. 0 - g/dL ?Albumin Level 3.9 3.5-5. 0 - g/dL ?Alkaline Phosphatase 66 39-117 - U/L ?Potassium 4.2 3.3-5.1 - mmol/L ?Chloride 111 H 96-108 - mm ol/L ?Carbon Dioxide 24 22-29 - mmol/L ?Anion Gap 13 12-20 - ?Blood Urea Nitrogen 15 9-16 - mg/dL ?Creatinine 1.09 0.5-1.4 - mg/dL ?Estimated Glomerular Filt Rate > 60 - ?Glucose Fasting 107 H 60-9 9 - mg/dL ?Calcium 9.5 8.4-10.2 - m g/dL ???Lab:Lipid Panel (Order Da 11/22/2023) (Collection Date - 11/22/2023) ? Value Reference Range ?Triglycerides 79 <150 - mg/dL ?Cholesterol 169 <200 - m g/dL ?LDL Cholesterol Calculated 110 H <100 - mg/dL ?HDL Cholesterol 44 >40 - mg/dL ???Lab:PSA,Total (Free>4and< 10) (Order Date 11/22/2023) (Collection Date - 11/22/2023) ? Value Reference Range ?PSA,Total (Free>4and<10) 2.42 0.00-4.00 - ng/mL ???Lab:UA ClnCatch+Micro w/r flx Cult (Order Date - 11/22/2023) (Collection Date - 11/22/2023) ? Value Reference Range ?Color Urine Dark Yellow - ?Appearance Urine Clear - ?PH 5.5 5.0-9.0 - ?Glucose Urine UA Negative Neg ative - mg/dL ?Urine Blood Negative Negative - ?Specific [place] - Urine >= 1.030 H 1.005-1.025 - ?Urine Protein Trace Neg-Tr humphrey - mg/dL ?Urine Ketones Trace Negati ve - mg/dL ?Nitrite Urine Negative Negati ve - ?Leukocyte Esterase Urine Negative Negative - ?RBC Urine 0-2 0-2 - /HPF ?WBC Urine 0-5 0-5 - /HPF ?Squamous Epithelial Cell Urine 0-2 0-2 - /HPF ?Bacteria Urine None Seen None Seen - ?Hyaline Casts Urine 0-2 0-2 - /LPF * Examination: ???General Examination: ?GENERAL APPEARANCE:?well developed, well nourished, in no acute distress.?HEAD:?normocephalic, atraumatic.?EYES:?pupils equal, round, reactive to light and accommodation, sclera non-icteric.?EARS:?normal.?ORAL CAVITY:?mucosa moist.?THROAT:?clear.?NECK/THYROID:?neck supple, full range of motion, no cervical lymphadenopathy, no bruits.?SKIN:?warm and dry, no suspicious lesions.?HEART:?regular rate and rhythm, S1, S2 normal, no murmurs.?LUNGS:?clear to auscultation bilaterally, abnormal with few scattered wheezes.?ABDOMEN:?soft, nontender, nondistended, bowel sounds present, normal, no organomegaly , no masses palpable.?RECTAL EXAM:?normal tone, no external hemorrhoids, no masses palpable, prostate normal, stool guaiac negative.?MALE GENITOURINARY:?circumcised, no testicular mass, testes descended bilaterally, no testicular mass.?EXTREMITIES:?no clubbing, cyanosis, or edema, abnormal with swollen left? ankle achilles appears normal.?NEUROLOGIC:?nonfocal, motor strength normal upper and lower extremities, sensory exam intact.? Assessment: * Assessment: 1.?Injury of left ankle, ini tial encounter - S99.912A (Primary)?2.?Pure hypercholesterolemia - E78.00?3.?Mild persistent asthma without complication - J45.30?4.?Elevated PSA - R97.20? Plan: * Treatment: Notes: order given to patient??2.?Pure hypercholesterolemia? Notes: well controlled??3.?Elevated PSA? Notes: is normal?? * Procedure Codes:? * Follow Up:?3 Weeks * * Sign off status: Completed true * Provider:?Yosi Da Silva MD Date:?0 11/29/2023 Generated for Armida dee/Roni/eTmiguel ángelsmitting on:?05/19/2024 12:10 PM EDT History and Physical Notes * HPI (History of Present Illness) Category Sub-Category Detail Notes Category Not es Depression Screening PHQ-9 Little inte rest or pleasure in doing things: Not at all pt is a 68 yo male who had kidney stone august/ had been working and having sciatica and fell from 10 feet off ladder. 3 days ago happened. felt a crunch in anklesore in achilles and in ankleis able to walk on it Feeling down, depressed, or hopeless: No t at all Trouble falling or staying asleep, or sl eeping too much: Not at all Feeling tired or having little energy: N ot at all Poor appetite or overeating: Not at all Feeling bad about yourself o r that you are a failure, or have let yourself or your family down: Not at all Trouble concentrating on thi ngs, such as reading the newspaper or watching television: Not at all Moving or speaking so slowly that other people could have noticed; or the opposite, being so fidgety or restless that you have been moving around a lot more than usual: Not at all Thoughts that you would be b rosa off or of hurting yourself in some way: Not at all Total Score: 0 SDOH Questions SDOH Questions In the past year have you been worried about losing housing?: No In the past year have you or any family members you live with been unable to get any of the following when it was really needed? Check all that apply:: None Fall Risk History Have you had any falls with injury in the past year?: Yes 11-26-24 fell off a ladder 10 feet high landed standing knees buckled and now has left ankle pain. Did not go to ER Have you had two or more falls in the year?: No Communication Needs Communication Needs Does the patient have a hearing impairment: No Does the patient have a vision impairmen t?: Yes ?If yes, what is the vision impairment?: Glasses Does the patient have a cognition impair ment?: No Examination Category Sub-Category Detail Notes Category Not es General Examination GENERAL APPEARANCE: well dev eloped, well nourished, in no acute distress HEAD: normocephalic, atrau matic EYES: pupils equal, round, reactive to light and accommodation, sclera non- icteric EARS: normal THROAT: clear NECK/THYROID: neck supple, full ra nge of motion, no cervical lymphadenopathy, no bruits HEART: regular rate and rhy thm, S1, S2 normal, no murmurs LUNGS: clear to auscultatio n bilaterally, abnormal with few scattered wheezes ABDOMEN: soft, nontender, non distended, bowel sounds present, normal, no organomegaly , no masses palpable NEUROLOGIC: nonfocal, motor stre ngth normal upper and lower extremities, sensory exam intact SKIN: warm and dry, no rock picious lesions EXTREMITIES: no clubbing, cyanosi s, or edema, abnormal with swollen left ankle achilles appears normal MALE GENITOURINARY: circumcised, no test icular mass, testes descended bilaterally, no testicular mass RECTAL EXAM: normal tone, no exte rnal hemorrhoids, no masses palpable, prostate normal, stool guaiac negative ORAL CAVITY: mucosa moist
--- OUTSIDE RECORDS SUMMARY | 2024-05-19 12:10 | XMS_ITS ---
Author Organization Yosi Da Silva MD Address [address] [place] [phone] Care Team Providers Care [employer] Counterperson Name Role Phone Rekha Yosi Primary Care Provider REASON FOR VISIT yearly fasting lipids Encounters Encounter Location Date Provider Diagnosis Yosi Da Silva MD [address] [place] [phone] 05/19/2024 Yosi Da Silva Pure hypercholestero lemia E78.00 Assessments Encounter Date Diagnosis (ICD Code) Assessment Notes Treatment Notes Treatment Clinical Notes Section Notes 05/19/2024 Pure hypercholesterolemia (ICD-10 - E78.00) Plan Of Treatment Pending Test Test Name Order Date Liver Panel 05/19/2024 Lipid Panel with Reflex 05/19/2024 Next Appt Details Provider Name:Yosi rocha, 05/26/2024 09:00:00 AM, [address] [place] [address], [address] [place] [address], [phone], Provider Name:Yosi rocha, 11/26/2024 07:15:00 AM, [address] [place] [address], [address] [place] [address], [phone], Provider Name:Yosi López ier, 12/03/2024 09:30:00 AM, [address], [address], [place], [place], [phone], Progress Notes * Heriberto BOODOB:1955 (69 yo M)Acc No.[id number]:05/19/2024 Progress Note Patient:?Heriberto BOO Provider:?Yosi Da Silva MD :1955???Age:69 Y???Sex:Male Carmelo e:05/19/2024 Address:[address] [place], [place] [phone] Subjective: * Chief Complaints: * ???1. Yearly fasting lipids. * Medical History:? Objective: * Vitals:? Assessment: * Assessment: 1.?Pure hypercholesterolemia - E78.00 (Primary)??? Plan: * Treatment: * Procedure Codes:?71559 VENIP UNCT, ROUTINE* * * The named appointment provid er may or may not be the originator of this progress note, and it is not deemed complete until electronically signed by the appointment provider. Sign off status: Pending * Provider:?Yosi Da Silva MD Date:?0 05/19/2024 Generated for Armida dee/Roni/eTmiguel ángelsmitting on:?05/19/2024 12:10 PM EDT
--- OUTSIDE RECORDS SUMMARY | 2024-05-19 12:11 | XMS_ITS ---
Author Name [facility] [place] Organization [facility] Address [address] [place] [address] Care Team Providers Care Daylight Driller Name Role Phone GILBERT HEDRICK Primary Care Provider Unavail able Insurance [...] Name Patient's Relationship to Policy Hoover BENJAMÍN CRABTREE OR FEDERAL PREFERRED PROVIDER ORGANIZAT ION (PPO) STAND GEOVANNY FAMIL Y Apr 05, 2001 [id number] CASIE BOO PATIENT BCBS [place] F[place] PREFERRED PROVIDER ORGANIZAT ION (PPO) PSHB STD SELF PLUS 1 Mar 11, 2024 [id number] CASIE BOO EPH PATIENT [place] F[place] PREFERRED PROVIDER ORGANIZAT ION (PPO) STAND GEOVANNY FAMIL Y Oct 27, 2009 105 [id number] [phone] CASIE BOO PATIENT [place] FEP BCBS PRESCRIPT ION CAREM ARK FEPRX PLAN July 27, 2010 [id number] CASIE BOO PATIENT [place] FEPRX PLAN PRESCRIPT ION CAREM ARK FEPRX Apr 05, 2001 [id number] CASIE BOO PATIENT Selected Encounter This section includes the information on record at [place] for the Encounter. Date/Time Encounter Type Encounter Description Reason Pro vider Source Mar 31, 2024 07:39 PM Outpatient Encounter ADMIN PAT ACTIVTIES (MASNONCT) IHE Encounter Template Text not used by [place] Plan of Treatment: Future Appointments (+ 6 months) and Future Tests (+/- 45 days) The Plan of Treatment section includes future care activities for the patient from all [place] treatmentfacilities. This section includes future appointments and future orders which are active, pending or scheduled. Future Appointments This section includes appointments that were scheduled to occur 6 months from the date of the Encounter, up to a maximum of 20 appointments. The data comes from all [facility] facilities. Appointment Date/Time Appointment Type Appointme nt Facility Name Apr 10, 2024 01:30 PM AMBULATORY - MEDICINE [facility] Active, Pending, and Scheduled Orders This section includes a listing of several types of active, pending, and scheduled orders, including clinic medications orders, diagnostic test orders, procedure orders and consult orders; where the start date of the order is 45 days before the date of the Encounter or 45 days after the date of theEncounter. The data comes from all [facility]. Test Date/Time Test Type Test Details Facility Name Mar 05, 2024 12:00 AM Laboratory - Chemi stry Order LIVER FUNCTION BLOOD (SST-SERUM) [facility] Mar 05, 2024 12:00 AM Laboratory - Chemi stry Order BASIC METABOLIC PANEL (fasting) BLOOD (SST-SERUM) [facility] Mar 05, 2024 12:00 AM Laboratory - Chemi stry Order LIPID PANEL FASTING BLOOD (SST-SERUM) [facility] Mar 05, 2024 12:00 AM Laboratory - Chemi stry Order CBC AND DIFF (AUTO) BLOOD (LAV-BLOOD) [facility] Lab Results: +/- 30 days of the encounter This section includes the Chemistry and Hematology Lab Results on record with [place] for the patient. Radiology Reports and Pathology Reports are provided separately, in subsequent sections. Lab Results This section contains the Chemistry/Hematology Results that were resulted 30 days before or 30 daysafter the date of the Encounter. Date/Time Source Result Type Result - Unit Interpretation Reference Range Comment Apr 10, 2024 12:38 PM [facility] LIPID PANEL FASTING Specimen Type: SERUM No comment entered. Ordering Provider: ALDA HEDRICK Report Released Date/Time: Apr 01, 2024 10:17 AM Reporting Lab: [facility] [address] [facility] [address] Performing Lab: [address] [address] CHOLESTEROL 206 mg/dL H TRIGLYCERIDE 88 mg/dL 0-150 LDL calculated 142 mg/dL H 0-129 CHOL/HDL 4.5 HDL CHOLESTEROL 46 mg/dL 40-60 Apr 10, 2024 12:38 PM [facility] LIVER FUNCTION Specimen Type: SERUM No comment entered. Ordering Provider: ALDA HEDRICK Report Released Date/Time: Apr 01, 2024 10:17 AM Reporting Lab: [facility] [address] [facility] [address] Performing Lab: [address] [address] PROTEIN,TOTAL 6.6 g/dL 6.0-8.3 ALBUMIN 3.5 g/dL 3.5-5.0 ALKALINE PHOSPHATASE 60 U/L 40-150 AST 15 U/L 5-34 ALT 16 U/L BILIRUBIN, TOTAL 0.4 mg/dL 0.2-1.2 Apr 10, 2024 12:38 PM [facility] BASIC METABOLIC PANEL (fasting) Specimen Type: SERUM No comment entered. Ordering Provider: ALDA HEDRICK Report Released Date/Time: Apr 01, 2024 10:17 AM Reporting Lab: [address] [address] Performing Lab: [address] [address] UREA NITROGEN 16 mg/dL 7-25 GLUCOSE 95 mg/dL 65-100 SODIUM 141 mmol/L 135-145 POTASSIUM 4.3 mmol/L 3.5-5.0 CHLORIDE 110 mmol/L 100-110 CO2 22 meq/L 20-30 CREATININE, Serum 0.95 mg/dL 0.50-1.40 eGFR(CKD-EPI 2020) 86 mL/min >60 Apr 10, 2024 12:38 PM [facility] CBC AND DIFF (AUTO) Specimen Type: BLOOD No comment entered. Ordering Provider: ALDA HEDRICK Report Released Date/Time: Apr 01, 2024 10:17 AM Reporting Lab: [facility] [address] [facility] [address] Performing Lab: [facility] [address] [facility] [address] WBC 5.67 10*3/uL 4.50-11.00 RBC 4.61 10*6/uL [...] 0.0 0.0-0.0 NRBC, ABS 0.00 10*3/uL 0.00-0.00 Social History: Smoking Status (Most current) and Tobacco Use (All prior to encounter date) This section includes the most current, and the historical, smoking and tobacco- related health factors from the [place] facility where the Encounter took place. Current Smoking Status This section includes the most current smoking, or tobacco-related health factor, from the [place] facility where the Encounter took place. Date/Time Current Smoking Status Comment [facility] Mar 05, 2023 08:00 AM VA-TOBACCO FORMER USER [place] [facility] [place] [facility] Tobacco Use History This section includes a history of the smoking, or tobacco-related health factors, that were collected on or before the date of the Encounter. The data comes from the [place] facility where the Encounter took place. Date/Time Smoking Status/Tobac co Use Comment [facility] Mar 05, 2023 08:00 AM VA-TOBACCO QUIT 15 YRS OR MORE [place] [facility] [place] [facility] Mar 06, 2022 08:30 AM VA-TOBACCO FORMER USER [place] [facility] [place] [facility] Mar 06, 2022 08:30 AM VA-TOBACCO QUIT 15 YRS OR MORE [place] [facility] [place] [facility] Mar 06, 2021 08:30 AM VA-TOBACCO FORMER USER [place] [facility] [place] [facility] Mar 06, 2021 08:30 AM VA-TOBACCO QUIT 15 YRS OR MORE [place] [facility] [place] [facility] Feb 02, 2020 08:00 AM VA-TOBACCO FORMER USER [place] [facility] [place] [facility] Feb 02, 2020 08:00 AM VA-TOBACCO QUIT 15 YRS OR MORE [place] [facility] [place] [facility] Oct 28, 2017 08:55 AM LIFETIME NON-TOBACCO USER [facility] [place] [facility] Sep 04, 2016 01:54 PM QUIT TOBACCO USE > 7 YEARS AGO [facility] [place] [facility] Aug 18, 2015 08:48 AM QUIT TOBACCO USE > 7 YEARS AGO quit 50 yrs ago [facility] [place] [facility] Apr 24, 2011 01:09 PM QUIT TOBACCO USE > 7 YEARS AGO [facility] [place] [facility] Apr 10, 2010 09:50 AM QUIT TOBACCO USE 1-7 YEARS AGO [facility] [place] [facility] Jul 08, 2009 08:35 AM QUIT TOBACCO USE 1-7 YEARS AGO [facility] July 20, 2008 09:56 AM QUIT TOBACCO USE 1-7 YEARS AGO [facility] Aug 13, 2007 08:25 AM QUIT TOBACCO USE 1-7 YEARS AGO [facility] Jun 23, 2007 08:00 AM QUIT TOBACCO USE 1-7 YEARS AGO [facility] Jan 09, 2007 07:56 AM QUIT TOBACCO USE IN PAST YEAR [facility] Mar 14, 2006 09:05 AM QUIT TOBACCO USE 1-7 YEARS AGO I quit in October. [facility] Feb 28, 2006 08:06 AM QUIT TOBACCO USE IN PAST YEAR QUIT OCTOBER 2005 [facility] Advance Directives: All historical and current Section Date Range: From patient's date of to the date document was created. This section includes ALL of a patient's completed or amended [place] Advance and Rescinded Directives. The entries below indicate that a directive exists for the patient, but an actual copy is not included with this document. The data comes from all [place] facilities. Date Advance Directives Provider Source Sep 24, 2002 ADVANCE DIRECTIVE [facility] Encounter Notes: All associated encounter notes This section contains the clinical notes associated to the Encounter. Date/Time Encounter Note(s) Provider Source Mar 31, 2024 07:39 PM PHARMACY NOTE: LOCAL TITLE: PHARMACY CUSTOMER CARE MEDICATION RENEWAL STANDARD TITLE: PHARMACY NOTE DATE OF NOTE: MAR 31, 2024@19:39 ENTRY DATE: MAR 31, 2024@19:39:59 AUTHOR: EMA DEJESUS COSIGNER: URGENCY: STATUS: COMPLETED Date: Mar Division: [facility] referred by Pharmacy Call Center for medication renewal: Non-controlled/maintena nce medication Medications requested: [id number] PANTOPRAZOLE NA 40MG EC TAB [id number] SIMVASTATIN 20MG TAB [id number] TERAZOSIN HCL 5MG CAP Defer to primary care provider To be mailed . Please review and renew if appropriate. *This note was generated by [facility] Pharmacy Customer Care. If you have any questions or need assistance, do not contact this author. Please refer all questions to your local, on-site pharmacy departments. /guerrero/ EMA DEJESUS Machine Taper, [place]/Pharmacy Customer Care Signed: 03/31/2024 19:40 Receipt Acknowledged By: 04/01/2024 10:50 /es/ MAICOL BARFIELD, RN REGISTERED NURSE 04/01/2024 10:45 /es/ Gilbert Hedrick PA-C STAFF PHYSICIAN MANAGER PLANT [facility]
--- OUTSIDE RECORDS SUMMARY | 2024-05-19 12:11 | XMS_ITS ---
Author Organization Yosi Da Silva MD Address [address] [place], [place] [id number] Care Team Providers Care Psychotherapist Name Role Phone Yosi Da Silva Primary Care Provider Allergies No Known Allergies REASON FOR VISIT 3 week Medications Medication SIG (Take, Route, Frequency, Duration) Notes Start Date End Date Status Dulera 200-5 MCG/ACT 2 puffs Inhalation Twice a day Not-Taking ProAir HFA 108 (90 Base) MCG/ACT 2 puffs as needed Inhalation every 4 hrs for 30 days 07/21/2012 Not-Taking Stelara 45 MG/0.5ML as directed Subcutan eous every 3 months Not-Taking EpiPen 2-Ruiz 0.3 MG/0.3ML Injection Not-Taking Simvastatin 20 MG 1 tablet every eveni ng Orally Once a day Active Nasacort AQ Active Flonase 50 MCG/ACT 1 spray in each nost ril Nasally Once a day Active Pantoprazole Sodium 40 MG 1 tablet Orally Once a day for 90 days Active Skyrizi (150 MG Dose) 75 MG/0.83ML 1.66 ml Subcutaneous once every 3 months Active Terazosin HCl 5 MG 2 capsule Orally Onc e a day Active Opzelura 1.5 % 1 application Metal Moulder'S Assistant ally Twice a day Active Vital Signs Blood pressure systolic 126 mm Hg 12/16/19 24 Blood pressure diastolic 64 mm Hg 024 Height 70.25 in 12/16/2023 Weight 215 lbs 12/16/2023 BMI 30.63 kg/m2 12/16/2023 weight is up 4 pounds since 11-29-23 Encounters Encounter Location Date Provider Diagnosis Yosi Da Silva MD [address] [place] [id number] 12/16/2023 Yois Da Silva Injury of left ankle, initial encounter S99.912A Assessments Encounter Date Diagnosis (ICD Code) Assessment Notes Treatment Notes Treatment Clinical Notes Section Notes 12/16/2023 Injury of left ankle, initial encounter (ICD-10 - S99.912A) has improved and able to walkearound and work in yard. xray was negative. Plan Of Treatment Treatment Notes Assessment Notes Injury of left ankle, initial encounter has improved and able to [place]around and work in yard. xray was negative. Next Appt Details Provider Name:Yosi rocha, 05/26/2024 09:00:00 AM, [address] [place] [address], [address], [phone], Provider Name:Yosi rocha, 11/26/2024 07:15:00 AM, [address] [place] [address], [address], [phone], Provider Name:Yosi rocha, 12/03/2024 09:30:00 AM, [address] [place] [address], [id number], Progress Notes * Heriberto BOODOB:1955 (68 yo M)Acc No.[id number]:12/16/2023 Progress Notes Patient:?Heriberto Boo Provider:?Yosi Da Silva MD :1955???Age:68 Y???Sex:Male Carmelo e:12/16/2023 Address:[address] [place], [place] [id number] Subjective: * Chief Complaints: * ???3 week * HPI: ???Symptom(s):? patient is a 68 yo male here for 3 week follow up visit, ankle is gradually getting better. * ROS:?General/Constitutional:?Denies?Chills.?Denies?Fatigue.?Denies?Fever.?Denies?Headache.?ENT:?Patient denies?decreased sense of smell , any loss of taste , sore throat.?Denies?Sore throat.?Respiratory:?Denies?Cough.?Denies?Shortness of breath at rest.?Denies?Shortness of breath with exertion.?Gastrointestinal:?Denies?Diarrhea.?Denies?Nausea.?Musculoskeletal:?Patient denies?muscle aches.?Peripheral Vascular:?Patient denies?red and blue toes.? * Medical History:? * Surgical History:? * Hospitalization/Major Diagno stic Procedure:? * Medications:?TakingOpzelura 1.5 % Cream 1 application [...] monthsEpiPen 2-Ruiz 0.3 MG/0.3ML Solution Auto-injector Injection Medication List reviewed and reconciled with the patientNot-Taking/PRN Dulera 200-5 MCG/ACT Aerosol 2 puffs Inhalation Twice a dayNot-Taking/PRN ProAir HFA 108 (90 Base) MCG/ACT Aerosol Solution 2 puffs as needed Inhalation every 4 hrsNot-Taking/PRN Stelara 45 MG/0.5ML Solution as directed Subcutaneous every 3 monthsNot-Taking/PRN EpiPen 2-Ruiz 0.3 MG/0.3ML Solution Auto-injector Injection Medication List reviewed and reconciled with the patient * Allergies:?N.K.D.A.yes[Aller gies Verified] Objective: * Vitals:?Ht: 70.25, Wt:215, B MO:30.63, BP:126/64 weight is up 4 pounds since 11-29-23. * Examination: ???General Examination: ?GENERAL APPEARANCE:? alert, well hydrated, in no distress , male.?EXTREMITIES:? left ankle with with tenderness to motion. swelling minimal.? Assessment: * Assessment: 1.?Injury of left ankle, ini tial encounter - S99.912A (Primary)? Plan: * Treatment: * Procedure Codes:? * * Sign off status: Completed true * Provider:?Yosi Da Silva MD Date:?1 Generated for Armida dee/Roni/Quinton on:?05/19/2024 12:10 PM EDT History and Physical Notes * HPI (History of Present Illness) Category Sub-Category Detail Notes Category Not es Symptom(s) patient is a 68 yo male here for 3 week follow up visit, ankle is gradually getting better. Examination Category Sub-Category Detail Notes Category Not es General Examination GENERAL APPEARANCE: alert, w ell hydrated, in no distress , male EXTREMITIES: left ankle with with tenderness to motion. swelling minimal
--- OUTSIDE RECORDS SUMMARY | 2024-05-19 12:11 | XMS_ITS | Continuity of Care Document ---
Author Name [facility] Organization [facility] Care Team Providers Care Health Insurance Adjuster Name Role Phone [facility] Unavailable Unavailable Problems Combined list of problems from Department of Defense and Veterans Affairs facilities. It does not include entries that were removed or entered in error. Problem Status Onset Date Problem Type Date of Resolution Comments Source Arthritis, Psoriatic * (ICD-9-CM 696.0) Active Condition [facility] Exposure to potentially hazardous substance Active Condition May 10, 2023 Entered By: PAZ STODDARD Comment: Original RANDALL Screening completed 03/06/24 [facility] GERD * (ICD-9-CM 530.81) Active Condition [facility] Headache * (ICD-9-CM 784.0) Active Condition [facility] Hiatal hernia * (ICD-9-CM 553.3) Active Condition [facility] Hyperlipidemia ([facility] [id number]) Active Condition [facility] Kidney Stone ([facility] 13164449) Active Condition [facility] Major Depression, recurrent Active Condition Mar 08, 2010 Entered By: GRABIEL CAMPOVERDE Comment: Reviewed [facility] Osteoarthritis Active Condition [facility] Panic Disorder * (ICD-9-CM 300.01) Active Condition Mar 08 10 Entered By: GRABIEL CAMPOVERDE Comment: Reviewed [facility] Posttraumatic Stress Disorder * (ICD-9-CM 309.81) Active Condition Mar 08 10 Entered By: GRABIEL CAMPOVERDE Comment: ReviewedMar 27, 2011 Entered By: GRABIEL CAMPOVERDE Comment: Reviewed [facility] Psoriasis * (ICD-9-CM 696.1) Active Condition [facility] Eczema * (ICD-9-CM 692.9) Inactive Condition 04/10/2010 [facility] Diagnosis: ICD-10-CM N20.0 Calculus of kidney Active Diagnosis [facility] Diagnosis: ICD-10-CM E78.5 Hyperlipidemia, unspecified Active Diagnosis [facility] Medications Combined list of outpatient medications from Department of Defense and [facility] facilities.Medications provided include 1) outpatient medications from the last 15 months, and 2) patient-reported medications. Medication Details Route Status Patient Instructions Prescription Expires Prescription Number Last Dispense Date Ordering Provider Order Date Order Qty Source ALBUTEROL 90MCG/ACTUA T (CFC-F) INHL,ORAL,8 .5GM DOSE COUNTER INHALE 2 PUFFS BY MOUTH FOUR TIMES DAILY NEEDED RESPIR ATORY (INHAL ATION) ACTIVE [facility] ASPIRIN 325MG TAB,EC TAKE THREE TABLETS BY MOUTH EVERY DAY NEEDED ORAL ACTIVE OHLDLUTHER AVILEZ MD [facility] DOXEPIN HCL 25MG CAP TAKE 1 CAPSULE BY MOUTH ORAL ACTIVE [facility] 2018 [facility] FLUTICASONE PROPIONATE 50MCG/SPRAY SOLN,NASAL, 16GM INSTILL 1 SPRAY INTO EACH NOSTRIL TWICE DAILY NEEDED NASAL ACTIVE [facility] ANTHON[facility] MULTIVITAMI NS W/MINERALS TAB TAKE ONE TABLET BY MOUTH EVERY DAY ORAL ACTIVE RAYSHAWN JORGENSEN [address] [facility] OTHER CAP/TAB TAKE IMMUNOTH ERAPY BY MOUTH PRN ORAL ACTIVE [facility] OTHER CAP/TAB TAKE DULERA (MOMESTA [id number] CG/FORMO [id number] G 2PUFFS BY MOUTH TWICE DAILY ORAL ACTIVE [facility] OTHER CAP/TAB TAKE KETOTIFE N GTTS BY MOUTH TWICE DAILY ORAL ACTIVE [facility] OTHER CAP/TAB TAKE USTEKINU MMAB/[place] injectio n EVERY THREE MONTHS ACTIVE [facility] ANTHON[facility] 2013 [facility] OTHER CAP/TAB TAKE SKIRIVE (SP_ INJECTAB LE FOR PSORIASI S BY MOUTH ORAL ACTIVE [facility] AN[facility]ON[facility] 2018 [facility] PANTOPRAZOL E NA 40MG TAB,EC TAKE ONE TABLET BY MOUTH TWICE DAILY ORAL ACTIVE 04/02/2025 [id number] 5 [facility] 20[facility] PANTOPRAZOL E NA 40MG TAB,EC TAKE ONE TABLET BY MOUTH TWICE DAILY ORAL DISCONT INUED 03/21/2024 [id number] 4 [facility] 20[facility] SIMVASTATIN 20MG TAB TAKE ONE TABLET BY MOUTH AT BEDTIME FOR CHOLESTE ROL NOTE - THIS IS A 20MG TABLET - DO NOT CUT IN HALF - DOSE INCREASE ORAL ACTIVE 04/02/2025 [id number] 5 K[facility] ANTHONY 2024 90 [facility] SIMVASTATIN 20MG TAB TAKE ONE TABLET BY MOUTH AT BEDTIME FOR CHOLESTE ROL NOTE - THIS IS A 20MG TABLET - DO NOT CUT IN HALF - DOSE INCREASE ORAL DISCONT INUED 03/21/2024 [id number] KI ANTHOYN 2023 90 [facility] TERAZOSIN HCL 5MG CAP TAKE ONE CAPSULE BY MOUTH AT BEDTIME ORAL ACTIVE 04/02/2025 [id number] 5 KI ANTHONY 2024 90 [place] [facility] [place] [facility] TERAZOSIN HCL 5MG CAP TAKE ONE CAPSULE BY MOUTH AT BEDTIME ORAL DISCONT INUED 03/21/2024 [id number] KI ANTHONY 2023 90 [facility] Allergies, Adverse Reactions, Alerts Combined list of allergies from Department of Defense and Veterans Affairs facilities. It does not include entries that were removed or entered in error. Substance Category Reaction Severity Reaction type Status Date Reported Comments Source GRASS Propensity to adverse reaction (finding) Itching of eye active [facility] [place] [facility] TREE POLLEN Propensity to adverse reaction (finding) Itching of eye active [facility] [place] [facility] Immunizations Combined list of available immunizations from the Department of Defense and Veterans Affairs facilities. 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 DTAP, UNSPECIFIED FORMULATION 2010 ALLIE AYALA 107 complet ed [facility] PNEUMOCOCCAL, UNSPECIFIED FORMULATION 2010 109 complet ed [facility] TDAP 2010 115 complet ed [facility] Results Combined list of recent chemistry, hematology and other laboratory results from Department of Defense and Veterans Affairs, ranging from 15 months to all on record, depending upon the facility. Order Name Results Value Reference Range Date Interpretation Specimen Comments Source LIPID PANEL FASTING CHOLESTEROL [MASS/VOLUM E] IN SERUM OR PLASMA 206 mg/dL 04/10 H Specimen Type: SERUM No comment entered. Ordering Provider: Bettina ANTHONY Report Released Date/Time: Apr 01, 2024 10:17 AM Reporting Lab: [facility] [address] [facility] [address] Performing Lab: [facility] [address] [facility] [address] [facility] LIPID PANEL FASTING TRIGLYCERID E [MASS/VOLUM E] IN SERUM OR PLASMA 88 mg/dL 0 - 150 04/10 Specimen Type: SERUM No comment entered. Ordering Provider: Bettina ANTHONY Report Released Date/Time: Apr 01, 2024 10:17 AM Reporting Lab: [facility] [place] [facility] [address] [facility] [address] Performing Lab: [facility] [place] [facility] [address] [facility] [address] [facility] LIPID PANEL FASTING CHOLESTEROL IN LDL [MASS/VOLUM E] IN SERUM OR PLASMA BY CALCULATION 142 mg/dL 0 - 129 04/10 H Specimen Type: SERUM No comment entered. Ordering Provider: Bettina ANTHONY Report Released Date/Time: Apr 01, 2024 10:17 AM Reporting Lab: [facility] [place] [facility] [address] [facility] [address] Performing Lab: [facility] [place] [facility] [address] [facility] [address] [facility] LIPID PANEL FASTING CHOLESTEROL .TOTAL/CHOL ESTEROL IN HDL [MASS RATIO] IN SERUM OR PLASMA 4.5 04/10 Specimen Type: SERUM No comment entered. Ordering Provider: Bettina ANTHONY Report Released Date/Time: Apr 01, 2024 10:17 AM Reporting Lab: [facility] [place] [facility] [address] [facility] [address] Performing Lab: [facility] [place] [facility] [address] [facility] [address] [facility] LIPID PANEL FASTING CHOLESTEROL IN HDL [MASS/VOLUM E] IN SERUM OR PLASMA 46 mg/dL 40 - 60 04/10 Specimen Type: SERUM No comment entered. Ordering Provider: Bettina ANTHONY Report Released Date/Time: Apr 01, 2024 10:17 AM Reporting Lab: [facility] [place] [facility] [address] [facility] [address] Performing Lab: [facility] [place] [facility] [address] [facility] [address] [facility] LIVER FUNCTION PROTEIN [MASS/VOLUM E] IN SERUM OR PLASMA 6.6 g/dL 6.0 - 8.3 04/10 Specimen Type: SERUM No comment entered. Ordering Provider: Bettina ANTHONY Report Released Date/Time: Apr 01, 2024 10:17 AM Reporting Lab: [place] [facility] [place] [facility] [address] [facility] [address] Performing Lab: [facility] [place] [facility] [address] [facility] [address] [place] [facility] [facility] LIVER FUNCTION ALBUMIN [MASS/VOLUM E] IN SERUM OR PLASMA 3.5 g/dL 3.5 - 5.0 04/10 Specimen Type: SERUM No comment entered. Ordering Provider: Bettina ANTHONY Report Released Date/Time: Apr 01, 2024 10:17 AM Reporting Lab: [facility] [place] [address] [address] Performing Lab: [facility] [place] [facility] [address] [facility] [address] [facility] LIVER FUNCTION ALKALINE PHOSPHATASE [ENZYMATIC ACTIVITY/VO LUME] IN SERUM OR PLASMA 60 U/L 40 - 150 04/10 Specimen Type: SERUM No comment entered. Ordering Provider: Bettina ANTHONY Report Released Date/Time: Apr 01, 2024 10:17 AM Reporting Lab: [facility] [place] [address] [address] Performing Lab: [facility] [place] [facility] [address] [facility] [address] [place] [facility] LIVER FUNCTION ASPARTATE AMINOTRANSF ERASE [ENZYMATIC ACTIVITY/VO LUME] IN SERUM OR PLASMA 15 U/L 5 - 34 04/10 Specimen Type: SERUM No comment entered. Ordering Provider: Bettina ANTHONY Report Released Date/Time: Apr 01, 2024 10:17 AM Reporting Lab: [facility] [place] [address] [address] Performing Lab: [facility] [place] [facility] [address] [facility] [address] [facility] LIVER FUNCTION ALANINE AMINOTRANSF ERASE [ENZYMATIC ACTIVITY/VO LUME] IN SERUM OR PLASMA 16 U/L 04/10 Specimen Type: SERUM No comment entered. Ordering Provider: Bettina ANTHONY Report Released Date/Time: Apr 01, 2024 10:17 AM Reporting Lab: [facility] [place] [facility] [address] [facility] [address] Performing Lab: [facility] [place] [facility] [address] [facility] [address] [place] [facility] [facility] [facility] LIVER FUNCTION BILIRUBIN.T OTAL [MASS/VOLUM E] IN SERUM OR PLASMA 0.4 mg/dL 0.2 - 1.2 04/10 Specimen Type: SERUM No comment entered. Ordering Provider: Bettina ANTHONY Report Released Date/Time: Apr 01, 2024 10:17 AM Reporting Lab: [facility] [place] [facility] [address] [facility] [address] Performing Lab: [facility] [place] [facility] [address] [facility] [address] [facility] BASIC METABOLIC PANEL (fasting) UREA NITROGEN [MASS/VOLUM E] IN SERUM OR PLASMA 16 mg/dL 7 - 25 04/10 Specimen Type: SERUM No comment entered. Ordering Provider: Bettina ANTHONY Report Released Date/Time: Apr 01, 2024 10:17 AM Reporting Lab: [facility] [place] [facility] [address] [facility] [address] Performing Lab: [facility] [place] [facility] [address] [facility] [address] [place] [facility] [facility] [facility] BASIC METABOLIC PANEL (fasting) GLUCOSE [MASS/VOLUM E] IN SERUM OR PLASMA 95 mg/dL 65 - 100 04/10 Specimen Type: SERUM No comment entered. Ordering Provider: Bettina ANTHONY Report Released Date/Time: Apr 01, 2024 10:17 AM Reporting Lab: [facility] [place] [facility] [address] [facility] [address] Performing Lab: [facility] [place] [facility] [address] [facility] [address] [facility] [place] [facility] BASIC METABOLIC PANEL (fasting) SODIUM [MOLES/VOLU ME] IN SERUM OR PLASMA 141 mmol/L 135 - 145 04/10 Specimen Type: SERUM No comment entered. Ordering Provider: Bettina ANTHONY Report Released Date/Time: Apr 01, 2024 10:17 AM Reporting Lab: [facility] [place] [facility] [address] [facility] [address] Performing Lab: [facility] [place] [facility] [address] [facility] [address] [place] [facility] [facility] BASIC METABOLIC PANEL (fasting) POTASSIUM [MOLES/VOLU ME] IN SERUM OR PLASMA 4.3 mmol/L 3.5 - 5.0 04/10 Specimen Type: SERUM No comment entered. Ordering Provider: Bettina ANTHONY Report Released Date/Time: Apr 01, 2024 10:17 AM Reporting Lab: [facility] [place] [facility] [address] [facility] [address] Performing Lab: [facility] [place] [facility] [address] [facility] [address] [facility] [place] [facility] BASIC METABOLIC PANEL (fasting) CHLORIDE [MOLES/VOLU ME] IN SERUM OR PLASMA 110 mmol/L 100 - 110 04/10 Specimen Type: SERUM No comment entered. Ordering Provider: Bettina ANTHONY Report Released Date/Time: Apr 01, 2024 10:17 AM Reporting Lab: [facility] [place] [facility] [address] [facility] [address] Performing Lab: [facility] [place] [facility] [address] [facility] [address] [facility] [place] [facility] BASIC METABOLIC PANEL (fasting) CARBON DIOXIDE, TOTAL [MOLES/VOLU ME] IN SERUM OR PLASMA 22 meq/L 20 - 30 04/10 Specimen Type: SERUM No comment entered. Ordering Provider: Bettina ANTHONY Report Released Date/Time: Apr 01, 2024 10:17 AM Reporting Lab: [facility] [place] [facility] [address] [facility] [address] Performing Lab: [facility] [address] [facility] BASIC METABOLIC PANEL (fasting) CREATININE [MASS/VOLUM E] IN SERUM OR PLASMA 0.95 mg/dL 0.50 - 1.40 04/10 Specimen Type: SERUM No comment entered. Ordering Provider: Bettina ANTHONY Report Released Date/Time: Apr 01, 2024 10:17 AM Reporting Lab: [facility] [address] [address] Performing Lab: [facility] [address] [facility] BASIC METABOLIC PANEL (fasting) GLOMERULAR FILTRATION RATE/1.73 SQ M.PREDICTED [VOLUME RATE/AREA] IN SERUM, PLASMA OR BLOOD BY CREATININE- BASED FORMULA (CKD-EPI 2020) 86 mL/min 60 04/10 Specimen Type: SERUM No comment entered. Ordering Provider: Bettina ANTHONY Report Released Date/Time: Apr 01, 2024 10:17 AM Reporting Lab: [facility] [address] Performing Lab: [facility]ITAL[facility] [address] [facility] CBC AND DIFF (AUTO) LEUKOCYTES [#/VOLUME] IN BLOOD BY AUTOMATED COUNT 5.67 10*3/u L 4.50 - 11.00 04/10 Specimen Type: BLOOD No comment entered. Ordering Provider: Bettina ANTHONY Report Released Date/Time: Apr 01, 2024 10:17 AM Reporting Lab: [facility]ITALUSEKATHRYN [place] [address] Performing Lab: [facility] [place] [facility] [address] [facility] [address] [facility] CBC AND DIFF (AUTO) ERYTHROCYTE S [#/VOLUME] IN BLOOD BY AUTOMATED COUNT 4.61 10*6/u L 4.23 - 5.66 04/10 Specimen Type: BLOOD No comment entered. Ordering Provider: Bettina ANTHONY Report Released Date/Time: Apr 01, 2024 10:17 AM Reporting Lab: [facility] [place] [facility] [address] [facility] [address] Performing Lab: [place] [facility] [facility] [address] [facility] [address] [place] [facility] [facility] CBC AND DIFF (AUTO) HEMOGLOBIN [MASS/VOLUM E] IN BLOOD 13.3 g/dL 12.8 - 17 04/10 Specimen Type: BLOOD No comment entered. Ordering Provider: Bettina ANTHONY Report Released Date/Time: Apr 01, 2024 10:17 AM Reporting Lab: [place] [facility] [facility] [address] [facility] [address] Performing Lab: [facility] [place] [facility] [address] [facility] [address] [place] [facility] [facility] [facility] CBC AND DIFF (AUTO) HEMATOCRIT [VOLUME FRACTION] OF BLOOD BY AUTOMATED COUNT 39.4 39.2 - 50.4 04/10 Specimen Type: BLOOD No comment entered. Ordering Provider: Bettina ANTHONY Report Released Date/Time: Apr 01, 2024 10:17 AM Reporting Lab: [facility] [place] [facility] [address] [facility] [address] Performing Lab: [facility] [place] [facility] [address] [facility] [address] [facility] [place] [facility] CBC AND DIFF (AUTO) MCV [ENTITIC VOLUME] BY AUTOMATED COUNT 85.5 fL 82 - 99 04/10 Specimen Type: BLOOD No comment entered. Ordering Provider: Bettina ANTHONY Report Released Date/Time: Apr 01, 2024 10:17 AM Reporting Lab: [facility] [place] [facility] [address] [facility] [address] Performing Lab: [facility] [place] [facility] [address] [facility] [address] [facility] CBC AND DIFF (AUTO) MCHC [MASS/VOLUM E] BY AUTOMATED COUNT 33.8 g/dL 30.8 - 35.1 04/10 Specimen Type: BLOOD No comment entered. Ordering Provider: Bettina ANTHONY Report Released Date/Time: Apr 01, 2024 10:17 AM Reporting Lab: [facility] [place] [facility] [address] [facility] [address] Performing Lab: [facility] [place] [facility] [address] [facility] [address] [facility] CBC AND DIFF (AUTO) PLATELETS [#/VOLUME] IN BLOOD BY AUTOMATED COUNT 274 10*3/u L 140 - 360 04/10 Specimen Type: BLOOD No comment entered. Ordering Provider: Bettina ANTHONY Report Released Date/Time: Apr 01, 2024 10:17 AM Reporting Lab: [facility] [place] [facility] [address] [facility] [address] Performing Lab: [facility] [place] [facility] [address] [facility] [address] [facility] CBC AND DIFF (AUTO) ERYTHROCYTE DISTRIBUTIO N WIDTH [RATIO] BY AUTOMATED COUNT 13.6 12.0 - 16.0 04/10 Specimen Type: BLOOD No comment entered. Ordering Provider: Bettina ANTHONY Report Released Date/Time: Apr 01, 2024 10:17 AM Reporting Lab: [facility] [place] [facility] [address] [facility] [address] Performing Lab: [facility] [place] [facility] [address] [facility] [address] [facility] CBC AND DIFF (AUTO) MONOCYTES [#/VOLUME] IN BLOOD BY AUTOMATED COUNT 0.62 10*3/u L 0.30 - 1.10 04/10 Specimen Type: BLOOD No comment entered. Ordering Provider: Bettina ANTHONY Report Released Date/Time: Apr 01, 2024 10:17 AM Reporting Lab: [facility] [place] [facility] [address] [facility] [address] Performing Lab: [facility] [place] [facility] [address] [facility] [address] [facility] CBC AND DIFF (AUTO) MCH [ENTITIC MASS] BY AUTOMATED COUNT 28.9 pg 26.2 - 32.6 04/10 Specimen Type: BLOOD No comment entered. Ordering Provider: Bettina ANTHONY Report Released Date/Time: Apr 01, 2024 10:17 AM Reporting Lab: [place] [facility] [place] [address] [address] Performing Lab: [place] [facility] [facility] [address] [facility] [address] [place] [facility] [facility] [facility] CBC AND DIFF (AUTO) NEUTROPHILS /100 LEUKOCYTES IN BLOOD BY AUTOMATED COUNT 56.4 43.7 - 75.8 04/10 Specimen Type: BLOOD No comment entered. Ordering Provider: Bettina ANTHONY Report Released Date/Time: Apr 01, 2024 10:17 AM Reporting Lab: [facility] [place] [facility] [address] [facility] [address] Per[facility] Lab: [facility] [place] [facility] [address] [facility] [address] [facility] CBC AND DIFF (AUTO) LYMPHOCYTES /100 LEUKOCYTES IN BLOOD BY AUTOMATED COUNT 27.3 14.0 - 42.3 04/10 Specimen Type: BLOOD No comment entered. Ordering Provider: Bettina ANTHONY Report Released Date/Time: Apr 01, 2024 10:17 AM Reporting Lab: [place] [facility] [address] [address] Performing Lab: [facility] [place] [facility] [address] [facility] [address] [facility] CBC AND DIFF (AUTO) MONOCYTES/1 00 LEUKOCYTES IN BLOOD BY AUTOMATED COUNT 10.9 5.1 - 13.7 04/10 Specimen Type: BLOOD No comment entered. Ordering Provider: Bettina ANTHONY Report Released Date/Time: Apr 01, 2024 10:17 AM Reporting Lab: [facility] [place] [facility] [address] [facility] [address] Performing Lab: [facility] [place] [facility] [address] [facility] [address] [facility] CBC AND DIFF (AUTO) EOSINOPHILS /100 LEUKOCYTES IN BLOOD BY AUTOMATED COUNT 4.1 0.4 - 6.8 04/10 Specimen Type: BLOOD No comment entered. Ordering Provider: Bettina ANTHONY Report Released Date/Time: Apr 01, 2024 10:17 AM Reporting Lab: [facility] [address] [facility] [address] Performing Lab: [facility] [address] [facility] [address] [facility] CBC AND DIFF (AUTO) BASOPHILS/1 00 LEUKOCYTES IN BLOOD BY AUTOMATED COUNT 0.9 0.1 - 2.0 04/10 Specimen Type: BLOOD No comment entered. Ordering Provider: Bettina ANTHONY Report Released Date/Time: Apr 01, 2024 10:17 AM Reporting Lab: [facility] [address] [facility] [address] Performing Lab: [facility] [address] [facility] [address] [facility] CBC AND DIFF (AUTO) NEUTROPHILS [#/VOLUME] IN BLOOD BY AUTOMATED COUNT 3.20 10*3/u L 2.20 - 7.60 04/10 Specimen Type: BLOOD No comment entered. Ordering Provider: Bettina ANTHONY Report Released Date/Time: Apr 01, 2024 10:17 AM Reporting Lab: [facility] [address] [facility] [address] Performing Lab: [facility] [address] [facility] [address] [facility] CBC AND DIFF (AUTO) LYMPHOCYTES [#/VOLUME] IN BLOOD BY AUTOMATED COUNT 1.55 10*3/u L 1.00 - 3.20 04/10 Specimen Type: BLOOD No comment entered. Ordering Provider: Bettina ANTHONY Report Released Date/Time: Apr 01, 2024 10:17 AM Reporting Lab: [facility] [address] [facility] [address] Performing Lab: [facility] [address] [facility] [address] [facility] CBC AND DIFF (AUTO) EOSINOPHILS [#/VOLUME] IN BLOOD BY AUTOMATED COUNT 0.23 10*3/u L 0.03 - 0.44 04/10 Specimen Type: BLOOD No comment entered. Ordering Provider: Bettina ANTHONY Report Released Date/Time: Apr 01, 2024 10:17 AM Reporting Lab: [facility] [address] [facility] [address] Performing Lab: [facility] [address] [facility] [address] [facility] CBC AND DIFF (AUTO) BASOPHILS [#/VOLUME] IN BLOOD BY AUTOMATED COUNT 0.05 10*3/u L 0.01 - 0.13 04/10 Specimen Type: BLOOD No comment entered. Ordering Provider: Bettina ANTHONY Report Released Date/Time: Apr 01, 2024 10:17 AM Reporting Lab: [facility] [address] [facility] [address] Performing Lab: [facility] [address] [facility] [address] [facility] CBC AND DIFF (AUTO) IMMATURE GRANULOCYTE S/100 LEUKOCYTES IN BLOOD BY AUTOMATED COUNT 0.4 0.0 - 0.7 04/10 Specimen Type: BLOOD No comment entered. Ordering Provider: Bettina ANTHONY Report Released Date/Time: Apr 01, 2024 10:17 AM Reporting Lab: [facility] [place] [facility] [address] [facility] [address] Performing Lab: [facility] [place] [facility] [address] [facility] [address] [facility] [place] CBC AND DIFF (AUTO) IMMATURE GRANULOCYTE S [#/VOLUME] IN BLOOD 0.02 10*3/u L 0.00 - 0.06 04/10 Specimen Type: BLOOD No comment entered. Ordering Provider: Bettina ANTHONY Report Released Date/Time: Apr 01, 2024 10:17 AM Reporting Lab: [facility] [place] [address] [address] Performing Lab: [facility] [place] [address] [address] [facility] CBC AND DIFF (AUTO) NRBC % 0.0 0.0 - 0.0 04/10 Specimen Type: BLOOD No comment entered. Ordering Provider: Bettina ANTHONY Report Released Date/Time: Apr 01, 2024 10:17 AM Reporting Lab: [facility] [place] [facility] [address] [facility] [address] Performing Lab: [facility] [place] [facility] [address] [facility] [address] [facility] [place] [facility] CBC AND DIFF (AUTO) NRBC, ABS 0.00 10*3/u L 0.00 - 0.00 04/10 Specimen Type: BLOOD No comment entered. Ordering Provider: Bettina ANTHONY Report Released Date/Time: Apr 01, 2024 10:17 AM Reporting Lab: [facility] [place] [facility] [address] [facility] [address] Performing Lab: [facility] [place] [facility] [address] [facility] [address] [place] [facility] VITAMIN B12 COBALAMIN (VITAMIN B12) [MASS/VOLUM E] IN SERUM OR PLASMA 340 pg/mL 200 - 900 03/05 Specimen Type: SERUM No comment entered. Ordering Provider: Bettina ANTHONY Report Released Date/Time: Mar 05, 2023 08:08 AM Reporting Lab: [facility] [place] [facility] [address] [facility] [address] Performing Lab: [facility] [place] [facility] [address] [facility] [address] [facility] [place] VITAMIN D (25-OH) 25-HYDROXYV ITAMIN D3 [MASS/VOLUM E] IN SERUM OR PLASMA 31 ng/mL 20 - 50 03/05 Specimen Type: SERUM No comment entered. Ordering Provider: Bettina ANTHONY Report Released Date/Time: Mar 05, 2023 08:08 AM Reporting Lab: [facility] [place] [facility] [address] [facility] [address] Performing Lab: [facility] [place] [facility] [address] [facility] [address] [facility] [place] TSH THYROTROPIN [UNITS/VOLU ME] IN SERUM OR PLASMA 3.45 u[IU]/ mL 0.35 - 5.00 03/05 Specimen Type: SERUM No comment entered. Ordering Provider: Bettina ANTHONY Report Released Date/Time: Mar 05, 2023 08:08 AM Reporting Lab: [facility] [place] [facility] [address] [facility] [address] Performing Lab: [facility] [place] [facility] [address] [facility] [address] [facility] BASIC METABOLIC PANEL (fasting) UREA NITROGEN [MASS/VOLUM E] IN SERUM OR PLASMA 15 mg/dL 7 - 25 03/05 Specimen Type: SERUM No comment entered. Ordering Provider: Bettina ANTHONY Report Released Date/Time: Mar 06, 2022 08:56 AM Reporting Lab: [facility] [place] [facility] [address] [facility] [address] Performing Lab: [facility] [place] [facility] [address] [facility] [address] [facility] BASIC METABOLIC PANEL (fasting) GLUCOSE [MASS/VOLUM E] IN SERUM OR PLASMA 100 mg/dL 65 - 100 03/05 Specimen Type: SERUM No comment entered. Ordering Provider: Bettina ANTHONY Report Released Date/Time: Mar 06, 2022 08:56 AM Reporting Lab: [facility] [place] [facility] [address] [facility] [address] Performing Lab: [facility] [place] [facility] [address] [facility] [address] [facility] BASIC METABOLIC PANEL (fasting) SODIUM [MOLES/VOLU ME] IN SERUM OR PLASMA 139 mmol/L 135 - 145 03/05 Specimen Type: SERUM No comment entered. Ordering Provider: Bettina ANTHONY Report Released Date/Time: Mar 06, 2022 08:56 AM Reporting Lab: [facility] [place] [facility] [address] [facility] [address] Performing Lab: [facility] [place] [facility] [address] [facility] [address] [place] [facility] [facility] BASIC METABOLIC PANEL (fasting) POTASSIUM [MOLES/VOLU ME] IN SERUM OR PLASMA 4.0 mmol/L 3.5 - 5.0 03/05 Specimen Type: SERUM No comment entered. Ordering Provider: Bettina ANTHONY Report Released Date/Time: Mar 06, 2022 08:56 AM Reporting Lab: [facility] [place] [facility] [address] [facility] [address] Performing Lab: [facility] [place] [facility] [address] [facility] [address] [facility] BASIC METABOLIC PANEL (fasting) CHLORIDE [MOLES/VOLU ME] IN SERUM OR PLASMA 107 mmol/L 100 - 110 03/05 Specimen Type: SERUM No comment entered. Ordering Provider: Bettina ANTHONY Report Released Date/Time: Mar 06, 2022 08:56 AM Reporting Lab: [facility] [place] [address] [address] Performing Lab: [facility] [address] [facility] BASIC METABOLIC PANEL (fasting) CARBON DIOXIDE, TOTAL [MOLES/VOLU ME] IN SERUM OR PLASMA 24 meq/L 20 - 30 03/05 Specimen Type: SERUM No comment entered. Ordering Provider: Bettina ANTHONY Report Released Date/Time: Mar 06, 2022 08:56 AM Reporting Lab: [facility] [address] [address] Performing Lab: [facility] [address] [facility] BASIC METABOLIC PANEL (fasting) CREATININE [MASS/VOLUM E] IN SERUM OR PLASMA 1.03 mg/dL 0.50 - 1.40 03/05 Specimen Type: SERUM No comment entered. Ordering Provider: Bettina ANTHONY Report Released Date/Time: Mar 06, 2022 08:56 AM Reporting Lab: [facility] [address] Per[facility] Lab: [place] [facility] [address] [facility] BASIC METABOLIC PANEL (fasting) GLOMERULAR FILTRATION RATE/1.73 SQ M.PREDICTED [VOLUME RATE/AREA] IN SERUM, PLASMA OR BLOOD BY CREATININE- BASED FORMULA (CKD-EPI 2020) 79 mL/min 60 03/05 Specimen Type: SERUM No comment entered. Ordering Provider: Bettina ANTHONY Report Released Date/Time: Mar 06, 2022 08:56 AM Reporting Lab: [place] [facility] [place] [place] [address] Performing Lab[facility] [place] [facility] [address] [facility] [address] [facility] [place] LIVER FUNCTION PROTEIN [MASS/VOLUM E] IN SERUM OR PLASMA 6.6 g/dL 6.0 - 8.3 03/05 Specimen Type: SERUM No comment entered. Ordering Provider: Bettina ANTHONY Report Released Date/Time: Mar 06, 2022 08:56 AM Reporting Lab: [facility] [place] [facility] [address] [facility] [address] Performing Lab: [place] [facility] [place] [facility] [address] [facility] [address] [facility] LIVER FUNCTION ALBUMIN [MASS/VOLUM E] IN SERUM OR PLASMA 3.9 g/dL 3.5 - 5.0 03/05 Specimen Type: SERUM No comment entered. Ordering Provider: Bettina ANTHONY Report Released Date/Time: Mar 06, 2022 08:56 AM Reporting Lab: [facility] [place] [facility] [address] [facility] [address] Performing Lab: [facility] [place] [facility] [address] [facility] [address] [facility] [place] LIVER FUNCTION ALKALINE PHOSPHATASE [ENZYMATIC ACTIVITY/VO LUME] IN SERUM OR PLASMA 56 U/L 40 - 150 03/05 Specimen Type: SERUM No comment entered. Ordering Provider: Bettina ANTHONY Report Released Date/Time: Mar 06, 2022 08:56 AM Reporting Lab: [facility] [place] [facility] [address] [facility] [address] Performing Lab: [facility] [place] [facility] [address] [facility] [address] [facility] LIVER FUNCTION ASPARTATE AMINOTRANSF ERASE [ENZYMATIC ACTIVITY/VO LUME] IN SERUM OR PLASMA 13 U/L 5 - 34 03/05 Specimen Type: SERUM No comment entered. Ordering Provider: Bettina ANTHONY Report Released Date/Time: Mar 06, 2022 08:56 AM Reporting Lab: [facility] [place] [facility] [address] [facility] [address] Performing Lab: [facility] [place] [facility] [address] [facility] [address] [facility] [place] LIVER FUNCTION ALANINE AMINOTRANSF ERASE [ENZYMATIC ACTIVITY/VO LUME] IN SERUM OR PLASMA 14 U/L 03/05 Specimen Type: SERUM No comment entered. Ordering Provider: Bettina ANTHONY Report Released Date/Time: Mar 06, 2022 08:56 AM Reporting Lab: [facility] [place] [facility] [address] [facility] [address] Performing Lab: [facility] [place] [facility] [address] [facility] [address] [facility] [place] LIVER FUNCTION BILIRUBIN.T OTAL [MASS/VOLUM E] IN SERUM OR PLASMA 0.5 mg/dL 0.2 - 1.2 03/05 Specimen Type: SERUM No comment entered. Ordering Provider: Bettina ANTHONY Report Released Date/Time: Mar 06, 2022 08:56 AM Reporting Lab: [facility] [place] [facility] [address] [facility] [address] Performing Lab: [facility] [place] [facility] [address] [facility] [address] [facility] [place] LIPID PANEL FASTING CHOLESTEROL [MASS/VOLUM E] IN SERUM OR PLASMA 192 mg/dL 03/05 Specimen Type: SERUM No comment entered. Ordering Provider: Bettina ANTHONY Report Released Date/Time: Mar 06, 2022 08:56 AM Reporting Lab: [facility] [place] [facility] [address] [facility] [address] Per[facility] Lab: [facility] [place] [facility] [address] [facility] [address] [facility] [place] LIPID PANEL FASTING TRIGLYCERID E [MASS/VOLUM E] IN SERUM OR PLASMA 91 mg/dL 0 - 150 03/05 Specimen Type: SERUM No comment entered. Ordering Provider: Bettina ANTHONY Report Released Date/Time: Mar 06, 2022 08:56 AM Reporting Lab: [facility] [place] [facility] [address] [facility] [address] Performing Lab: [facility] [place] [facility] [address] [facility] [address] [facility] [place] [facility] LIPID PANEL FASTING CHOLESTEROL IN LDL [MASS/VOLUM E] IN SERUM OR PLASMA BY CALCULATION 123 mg/dL 0 - 129 03/05 Specimen Type: SERUM No comment entered. Ordering Provider: Bettina ANTHONY Report Released Date/Time: Mar 06, 2022 08:56 AM Reporting Lab: [facility] [place] [facility] [address] [facility] [address] Performing Lab: [facility] [place] [facility] [address] [facility] [address] [place] [facility] [facility] LIPID PANEL FASTING CHOLESTEROL .TOTAL/CHOL ESTEROL IN HDL [MASS RATIO] IN SERUM OR PLASMA 3.8 03/05 Specimen Type: SERUM No comment entered. Ordering Provider: Bettina ANTHONY Report Released Date/Time: Mar 06, 2022 08:56 AM Reporting Lab: [facility] [place] [facility] [address] [facility] [address] Performing Lab: [facility] [place] [facility] [address] [facility] [address] [facility] [place] LIPID PANEL FASTING CHOLESTEROL IN HDL [MASS/VOLUM E] IN SERUM OR PLASMA 51 mg/dL 40 - 60 03/05 Specimen Type: SERUM No comment entered. Ordering Provider: Bettina ANTHONY Report Released Date/Time: Mar 06, 2022 08:56 AM Reporting Lab: [facility] [place] [facility] [address] [facility] [address] Performing Lab: [facility] [place] [facility] [address] [facility] [address] [facility] Vital Signs Combined list of inpatient and outpatient Vital Signs from Department of Defense and Veterans Affairs, ranging from 12 months to all on record, depending upon the facility. Vital Sign Value Date Comments Source SYSTOLIC BLOOD PRESSURE 140 04/10/19 13:20:26 [facility] DIASTOLIC BLOOD PRESSURE 90 025 13:20:26 [facility] PULSE OXIMETRY 98 04/10/2024 13:20:26 [facility] WEIGHT 218 04/10/2024 13:20:26 [facility] BMI 31 kg/m2 04/10/2024 13:20:26 [facility] PAIN 0 04/10/2024 13:20:26 [facility] TEMPERATURE 98.4 04/10/2024 13:20:26 [facility] PULSE 74 04/10/2024 13:20:26 [facility] RESPIRATION 16 04/10/2024 13:20:26 [facility] Encounters Combined list of: 1) Encounters from Department of Veterans Affairs facilities going backup to the last 18 months, not all VA inpatient encounters are included; 2) Encounters from the Department of Defense facilities going backup to 280 months. Location Location Details Encounter Type Encounter Number Reason For Visit Attending Provider ADM Date DC Date Status Disposition Source [facility] Encounter [id number] 02/21 [facility] OFFICE O/P EST MOD 30-39 MIN [id number] Diagnos is: ICD-10- CM E78.5 Hyperli pidemia , unspeci KI Sol 03/05 [facility] Encounter [id number] 03/15 [facility] [id number] 03/21 [facility] Encounter [id number] 07/25 [facility]counter [id number] 03/04 [facility]counter [id number] 03/17 [facility] [id number] 03/31 [facility] OFFICE O/P EST MOD 30 MIN [id number] Diagnos is: ICD-10- CM N20.0 Calculu s of kidney KI ANTHONY 04/10 [facility] [place] Social History Combined list of available smoking, tobacco, and other social history from Department of Defense and Veterans Affairs facilities. Social History Type Response Date Comment Source Tobacco smoking status [facility] VA-TOBACCO USE FORMER CIGARETTES 04/10/2024 [facility] History of tobacco use VA-TOBACCO NEVER USED OTHER TYPE 04/10/2024 [facility] History of tobacco use VA-TOBACCO FORMER USER 03/05/2023 [facility] History of tobacco use VA-TOBACCO FORMER USER 03/06/2022 [facility] History of tobacco use VA-TOBACCO FORMER USER 03/06/2021 [facility] History of tobacco use VA-TOBACCO FORMER USER 02/02/[facility] [place] [facility] History of tobacco use LIFETIME NON-TOBACCO USER [facility] [place] [facility] History of tobacco use QUIT TOBACCO USE > 7 YEARS AGO 09/04/2016 [facility] [place] [facility] History of tobacco use QUIT TOBACCO USE > 7 YEARS AGO 08/18/2015 quit 50 yrs ago [facility] [place] [facility] History of tobacco use QUIT TOBACCO USE > 7 YEARS AGO 04/24/2011 [facility] [place] [facility] History of tobacco use QUIT TOBACCO USE 1-7 YEARS AGO 04/10/2010 [facility] [place] [facility] History of tobacco use QUIT TOBACCO USE 1-7 YEARS AGO 07/[facility] [place] [facility] History [facility] tobacco use QUIT TOBACCO USE 1-7 YEARS AGO 07/20/[facility] of tobacco use QUIT TOBACCO USE 1-7 YEARS AGO 08/13/2007 [facility] [place] [facility] History of tobacco use QUIT TOBACCO USE 1-7 YEARS AGO 06/23/[facility] [place] [facility] History of tobacco use QUIT TOBACCO USE IN PAST YEAR 01/09/[facility] [place] [facility] History of tobacco use QUIT TOBACCO USE 1-7 YEARS AGO 03/14/2006 I quit in October. [facility] [place] [facility] History of tobacco use QUIT TOBACCO USE IN PAST YEAR 02/28/2006 QUIT OCTOBER 2005 [facility] Advance Directives List of completed, amended, or rescinded Advance Directives on record at Department of [facility] facilities. An actual copy of the Directive is not included. Date Advance Directive Provider Source 09/24/2002 ADVANCE DIRECTIVE ROXANA NOLASCO [facility]
--- OUTSIDE RECORDS SUMMARY | 2024-05-19 12:11 | XMS_ITS | Patient Health Record ---
Author Organization Yosi Da Silva MD Address [address] [place], [place] [id number] Care Team Providers Care Etl Manager Name Role Phone Yosi Da Silva Primary Care Provider Allergies No Known Allergies Results Component Value Reference Range Notes Complete Blood Count Auto Di ff Reviewed date:11/24/2023 05:04:05 PM Interpretation: Performing Lab:[facility], [address] [place] [phone] Notes/Report: White Blood Count 5.7 4.8-10.8 X10*3/uL Red Blood Count 4.91 4.60-5.80 X10*6/uL Hemoglobin 14.2 14.0-18.0 g/dl Hematocrit 42.9 42.0-52.0 % Mean Corpuscular Volume 87.4 80.0-98.0 fL Mean Corpuscular Hemoglobin 28.9 27.0-33.0 pg Mean Corpuscular HGB Conc 33.1 31.0-36.0 g/dl Red Cell Distribution Width 13.4 11.0-16.0 % Platelet Count 294 160-400 X10*3/uL Mean Platelet Volume 9.8 9.4-12.4 fL Neutrophils Percent Auto 50.9 45-73 % Imm Gran Pct Auto 0.2 0.0-0.4 % Lymphocytes Percent Auto 30.1 20-40 % Monocytes Percent Auto 13.0 2-11 % Eosinophils Percent Auto 4.7 0-4 % Basophils Percent Auto 1.1 0-2 % NRBC Pct Auto 0.0 0.0-0.2 /100WBC Neutrophils Absolute Auto 2.9 2.0-8.3 x10*3/u L Imm Gran Abs Auto 0.01 0.00-0.03 X10*3/uL Lymphocytes Absolute Auto 1.7 1.2-4.9 X10*3/u L Monocytes Absolute Auto 0.7 0.1-1.2 X10*3/uL Eosinophils Absolute Auto 0.3 0.0-0.4 X10*3/u L Basophils Absolute Auto 0.1 0.0-0.2 X10*3/uL NRBC Abs Auto 0.000 0.0-0.012 X10*3/uL Comprehensive [place]. Panel Fa st Reviewed date:11/22/2023 03:51:51 PM Interpretation: Performing Lab:[facility], [address] [place] [phone] Notes/Report: Sodium 144 135-145 mmol/L Potassium 4.2 3.3-5.1 mmol/L Chloride 111 96-108 mmol/L Carbon Dioxide 24 22-29 mmol/L Anion Gap 13 12-20 Blood Urea Nitrogen 15 9-16 mg/dL Creatinine 1.09 0.5-1.4 mg/dL Estimated Glomerular Filt Rate > 60 NOTE: For -Latvian individuals, multiply the result by 1.210. Chronic Kidney Disease: Estimated GFR < 60 mL/min/1.73m2 Severe Kidney Disease: Estimated GFR < 15 mL/min/1.73m2 Glucose Fasting 107 60-99 mg/dL A fasting glucose from 100-125 mg/dl is considered impaired (pre-diabetes). Calcium 9.5 8.4-10.2 mg/dL Bilirubin Total 0.5 0.0-1.0 mg/dL Aspartate Amino Transferase 17 5-37 U/L Alanine Aminotransferase 15 0-40 U/L Total Protein 6.6 6.5-8.0 g/dL Albumin Level 3.9 3.5-5.0 g/dL Alkaline Phosphatase 66 39-117 U/L Lipid Panel Reviewed date:11/22/2023 03:49:43 PM Interpretation: Performing Lab:[facility], [address] [place] [phone] Notes/Report: Triglycerides 79 <150 mg/dL Desirable Triglyceride: less than 150 mg/dL Borderline High Triglyceride 150-199 mg/dL High Triglyceride: 200-499 mg/dL Very High Triglyceride: greater than or equal to 5OO mg/dL Cholesterol 169 <200 mg/dL Desirable Cholesterol: less than 200 mg/dL Borderline High Cholesterol: 200-239 mg/dL High Cholesterol: greater than 239 mg/dL LDL Cholesterol Calculated 110 <100 mg/dL Desirable LDL: less than 100 mg/dL Near Optimal/Above Optimal LDL: 110-129 mg/dL Borderline High LDL: 130-159 mg/dL High LDL: 160-189 mg/dL Very High LDL: greater than or equal to 190 mg/dL HDL Cholesterol 44 >40 mg/dL Desirable HDL: greater than 40 mg/dL Note: This HDL assay may give artificially low results in patients with liver disease. PSA,Total (Free>4and<10) Reviewed date:11/22/2023 03:51:20 PM Interpretation: Performing Lab:[facility], [address] [place] [phone] Notes/Report: PSA,Total (Free>4and<10) 2.42 0.00-4.00 ng/mL A Free PSA was not performed: The percentage of Free PSA can be used to enhance the differentiation of prostate cancer from benign prostatic disease in subjects whose PSA levels are between 4.0 and 10.0 ng/mL. For subjects whose PSA levels are below 4.0 or above 10.0 ng/mL, the risk of prostate cancer is determined on the basis of the PSA alone. Therefore the % Free PSA is recommended only for those subjects whose PSA levels are between 4.0 and 10.0 ng/mL. PSA methodology: Perez Alinity i Chemiluminescent Microparticle Immunoassay (CMIA) UA ClnCatch+Micro w/rflx Cul t Reviewed date:11/24/2023 05:03:11 PM Interpretation: Performing Lab:[facility], [address] [place] [phone] Notes/Report: Urine, Clean Catch Color Urine Dark Yellow Appearance Urine Clear PH 5.5 5.0-9.0 Glucose Urine UA Negative Negative mg/dL Urine Blood Negative Negative Specific Globe - Urine >= 1.030 1.005-1.025 Urine Protein Trace Neg-Trace mg/dL Urine Ketones Trace Negative mg/dL Nitrite Urine Negative Negative Leukocyte Esterase Urine Negative Negative RBC Urine 0-2 0-2 /HPF WBC Urine 0-5 0-5 /HPF Squamous Epithelial Cell Urine 0-2 0-2 /HPF Bacteria Urine None Seen None Seen Hyaline Casts Urine 0-2 0-2 /LPF XR ankle LT min 3V Reviewed date:12/02/2023 08:51:27 AM Interpretation: Performing Lab: Notes/Report: [address] [address] XRay Report Signed Patient: Heriberto Schneider MR#: [id number] 49 : 1955 Acct:[id number] Age/Sex: 68 / M ADM Date: 11/29/23 Loc: HO.VOLODYMYRAY Attending Dr: Yosi Da Silva MD Ordering Physician: Yosi Da Silva MD Date of Service: 11/29/23 Procedure(s): XR ankle LT min 3V Accession Number(s): [id number] cc: Yosi Da Silva MD EXAMINATION: XR [...] Deshawn Hilario MD 11/29/2023 03:51 PM EDT Dictated By: Deshawn Hilario MD Signed By: <Electronically signed by Deshawn Hilario MD in OV> 11/29/23 1551 DD/ 1338 TD/TT: 11/29/23 1355 Director Center: [facility] [address] [address] XRay Report Signed Patient: Tucker Schneider MR#: [id number] 49 : 1955 Acct:[id number] Age/Sex: 68 / M ADM Date: 11/29/23 Loc: HO.XRAY Attending Dr: Yosi Da Silva MD Ordering Physician: Yosi Da Silva MD Date of Service: 11/29/23 Procedure(s): XR ank le LT min 3V Accession Number(s): [id number] cc: Yosi Da Silva MD EXAMINATION: XR [...] 11/29/23 1551 DD/ 1338 TD/TT: 11/29/23 1355 Director Center: [facility] Abad (Not yet reviewed by provider) Interpretation: Performing Lab:[facility], [address] [place] [phone] Notes/Report: Gwendolyn Abad See Note Specimen held untested for 24 hours; Call to request Chemistry testing. Reason For Referral No Information Medications Medication SIG (Take, Route, Frequency, Duration) Notes Start Date End Date Status Dulera 200-5 MCG/ACT 2 puffs Inhalation Twice a day Not-Taking ProAir HFA 108 (90 Base) MCG/ACT 2 puffs as needed Inhalation every 4 hrs for 30 days 07/21/2012 Not-Taking Stelara 45 MG/0.5ML as directed Subcutan eous every 3 months Not-Taking EpiPen 2-Ruiz 0.3 MG/0.3ML Injection Not-Taking Opzelura 1.5 % 1 application Shape Carver ally Twice a day Active Nasacort AQ Active Flonase 50 MCG/ACT 1 spray in each nost ril Nasally Once a day Active Pantoprazole Sodium 40 MG 1 tablet Orally Once a day for 90 days Active Skyrizi (150 MG Dose) 75 MG/0.83ML 1.66 ml Subcutaneous once every 3 months Active Terazosin HCl 5 MG 2 capsule Orally Onc e a day Active Simvastatin 20 MG 1 tablet every eveni ng Orally Once a day Active Immunizations Vaccine Route Administration Date Status Comme nts Flu Vaccine Unknown 06/01/2014 Refused Flu Vaccine Unknown 12/21/2014 Refused Fluarix Quadrivalent Unknown 06/11/2016 Refused Fluarix Quadrivalent Unknown 12/31/2016 Refused PPSV23 (Pnemovax) Unknown 06/17/2017 Refused Fluarix Quadrivalent Unknown 12/31/2017 Refused TDaP Unknown 07/17/2018 Refused Fluarix Quadrivalent Unknown 07/17/2018 Refused emmy ent refused to have this past flu season Fluarix Quadrivalent Unknown 12/08/2018 Refused Shingrix Unknown 12/08/2018 Refused Covid Vaccine Unknown 11/06/2021 Refused Fluarix Quadrivalent - 150 Unknown 11/22/2023 Refused Social History Tobacco Use: Social History Observation [...] Never (0 point) Points 2 Interpretation Negative Problems Problem Type SNOMED Code ICD Code Onset Dates Problem Status W/U Status Risk Notes Problem 07778186 Prostatism (N40.0) Active confirmed Problem 133579848 Mild persistent asthma without complication (J45.30) Active confirmed Problem 988571895 Pure hypercholesterolemia (E78.00) Active confirmed Problem 009422279 Elevated PSA (R97.20) Active confirme d Vital Signs Blood pressure diastolic 64 mm Hg 12/16/2023 florina ght is up 4 pounds since 11-29-23 Height 70.25 in 12/16/2023 weight is up 4 pounds since 11-29-23 Blood pressure systolic 126 mm Hg 12/16/2023 weig ht is up 4 pounds since 11-29-23 Weight 215 lbs 12/16/2023 weight is up 4 pounds since 11-29-23 BMI 30.63 kg/m2 12/16/2023 weight is up 4 pounds since 11-29-23 Encounters Encounter Location Date Provider Diagnosis Yosi Da Silva MD [address] [place] [id number] 11/22/2023 Yosi Da Silva Annual physical exam Z00.00 ; Pure hypercholesterolemia E78.00 and Elevated PSA R97.20 Yosi Da Silva MD [address] [place] [id number] 05/19/2024 Yosi Da Silva Pure hypercholestero lemia E78.00 Yosi Da Silva MD [address] [place] [id number] 11/29/2023 Yosi Da Silva Injury of left ankle , initial encounter S99.912A ; Pure hypercholesterolemia E78.00 ; Mild persistent asthma without complication J45.30 and Elevated PSA R97.20 Yosi Da Silva MD [address] [place] [address] Drive [address] [place] [id number] 12/16/2023 Yosi Da Silva Injury of left ankle , initial encounter S99.912A Assessments Encounter Date Diagnosis (ICD Code) Assessment Notes Treatment Notes Treatment Clinical Notes Section Notes 11/22/2023 Annual physical exam (ICD-10 - Z00.00) 11/22/2023 Pure hypercholesterolemia (ICD-10 - E78.00) 05/19/2024 Pure hypercholesterolemia (ICD-10 - E78.00) 11/29/2023 Injury of left ankle , initial encounter (ICD-10 - S99.912A) order given to patient 11/29/2023 Pure hypercholesterolemia (ICD-10 - E78.00) well controlled 12/16/2023 Injury of left ankle , initial encounter (ICD-10 - S99.912A) has improved and able to walkearound and work in yard. xray was negative. 11/22/2023 Elevated PSA (ICD-10 - R97.20) 11/29/2023 Mild persistent asth ma without complication (ICD-10 - J45.30) 11/29/2023 Elevated PSA (ICD-10 - R97.20) is normal Plan Of Treatment Pending Test Test Name Order Date Electrocardiogram (EKG) 07/17/2018 Electrocardiogram (EKG) 05/03/2011 Electrocardiogram (EKG) 06/17/2015 Liver Panel 05/19/2024 Lipid Panel with Reflex 05/19/2024 Hold Gold 05/19/2024 Next Appt Details Provider Name:Yosi López ier, 05/26/2024 09:00:00 AM, [address] [place] [address], [address], [phone], Provider Name:Yosi López ier, 11/26/2024 07:15:00 AM, [address] [place] [address], [address], [phone], Provider Name:Yosi López ier, 12/03/2024 09:30:00 AM, [address] [place] [address], [address], [phone], Insurance Providers Payer Name Payer Address Payer Phone Subscriber Number Group Number Insured Name Patient Relationship to Insured Coverage Start Date Coverage End Date [facility] [address] [place], [place] [id number] [phone] [id number] WyattHeriberto Self - patient is the insured Medical (General) History Medical History History ICD Code PT off EMBREL FOR ARTHRITIS and brandi colonoscopy 2007; colonoscopy 10/28/15 w/ Dr. Patterson - repeat 10 yrs. Enlarged prostate without lower urinary tract symptoms zylar a new med for psoriasis and arthri tis History of vertigo Z87.898 History of vertigo Surgical History Surgery Date(Month/Year) Repair of RT Inguinal Hernnia w/Mesh (Dr Jona White) 07/2017
[2024-05-19 14:02] LABS: Reflex LDLD? No
== END 2024-05-19 10:18 | disposition home or self-care (01) ==
LOC: HO.LNP 10:17
PROVIDERS: Visit Provider Internal Medicine
DX: E78.00 Pure hypercholesterolemia, unspecified (principal)
CPT/HCPCS: 80061; 80076

== ENCOUNTER 2024-05-26 09:53 | Outpatient (REF) | payer BC, SELFPAY | END 2024-05-26 09:54 | disposition home or self-care (01) | LOC: HO.10HDL 09:53 | PROVIDERS: Visit Provider Internal Medicine | DX: Z01.84 Encounter for antibody response examination (principal) | CPT/HCPCS: 36415; 86765 ==

== ENCOUNTER 2024-08-28 10:42 | Outpatient (REF) | payer BC, SELFPAY ==
--- OUTSIDE RECORDS SUMMARY | 2024-04-10 09:30 | XMS_ITS ---
Author Name [facility] ([place] Organization [facility] [place] Address [address] [place] [id number] Care Team Providers Care Cosmetic Manager Name Role Phone KI HEDRICK Primary Care Provider Unavail able Insurance Providers: All historical and current Section Date Range: From patient's date of to the date document was created. This section includes the names of all active insurance providers for the patient. Insurance Provider Type of Coverage Plan Name Start of Policy Coverage End of Policy Coverage Group Number Member ID Insurance Provider's Telephone Number Policy Hoover's Name Patient's Relationship to Policy Hoover [facility] FEDERAL PREFERRED PROVIDER ORGANIZAT ION (PPO) STAND GEOVANNY FAMIL Y Apr 05, 2001 [id number] [phone] CASIE BOO PATIENT BCBS [place] PREFERRED PROVIDER ORGANIZAT ION (PPO) PSHB STD SELF PLUS 1 Mar 11, 2024 [id number] CASIE BOO EPH PATIENT [place] F[place] PREFERRED PROVIDER ORGANIZAT ION (PPO) STAND GEOVANNY FAMIL Y Oct 27, 2009 105 [id number] [phone] CASIE BOO PATIENT [place] FEP BCBS PRESCRIPT ION [employer] FEPRX PLAN July 27, 2010 [id number] CASIE BOO PATIENT [place] FEPRX PLAN PRESCRIPT ION CAR[employer] FEPRX Apr 05, 2001 [id number] CASIE BOO PATIENT Selected Encounter This section includes the information on record at [place] for the Encounter. Date/Time Encounter Type Encounter Description Reason Provider Source Apr 10, 2024 01:30 PM OFFICE O/P EST MOD 30 MIN PRIMARY CARE/MEDICINE ICD-10-CM N20.0 Calculus of kidney RAJWILL STEW F IHE Encounter Template Text not used by [place] Assessments - Encounter Diagnoses This section includes the primary and secondary diagnoses documented for the Encounter. Date/Time Primary/Secondary Diagnosis Diagnosis Name Provider Source Apr 25, 2024 07:47 AM PRIMARY Calculus of kidney [facility]ED[facility] Apr 25, 2024 07:47 AM SECONDARY Encounter for immunization ALDA HEDRICK [facility] [place] [facility] Apr 25, 2024 07:47 AM SECONDARY Hyperlipidemia, unspecified [facility]DA [facility]EDRICK [facility] Plan of Treatment: Future Appointments (+ 6 months) and Future Tests (+/- 45 days) The Plan of Treatment section includes future care activities for the patient from all [place] treatmentfacilities. This section includes future appointments and future orders which are active, pending or scheduled. Active, Pending, and Scheduled Orders This section includes a listing of several types of active, pending, and scheduled orders, including clinic medications orders, diagnostic test orders, procedure orders and consult orders; where the start date of the order is 45 days before the date of the Encounter or 45 days after the date of theEncounter. The data comes from all [place] treatment facilities. Test Date/Time Test Type Test Details Facility Name Mar 05, 2024 12:00 AM Laboratory - Chemi stry Order BASIC METABOLIC PANEL (fasting) BLOOD (SST-SERUM) [facility] Mar 05, 2024 12:00 AM Laboratory - Chemi stry Order LIVER FUNCTION BLOOD (SST-SERUM) [facility] Mar 05, 2024 12:00 AM Laboratory - Chemi stry Order CBC AND DIFF (AUTO) BLOOD (LAV-BLOOD) [facility] Mar 05, 2024 12:00 AM Laboratory - Chemi stry Order LIPID PANEL FASTING BLOOD (SST-SERUM) [facility] Lab Results: +/- 30 days of the encounter This section includes the Chemistry and Hematology Lab Results on record with [place] for the patient. Radiology Reports and Pathology Reports are provided separately, in subsequent sections. Lab Results This section contains the Chemistry/Hematology Results that were resulted 30 days before or 30 daysafter the date of the Encounter. Date/Time Source Result Type Result - Unit Interpretation Reference Range Specimen Type Comment Apr 10, 2024 12:38 PM [facility] LIPID PANEL FASTING SERUM Specimen Type: SERUM No comment entered. Ordering Provider: GEORGINA HEDRICK Report Released Date/Time: Apr 01, 2024 10:17 AM Reporting Lab: [address] [address] Performing Lab: [address] [address] CHOLESTEROL 206 mg/dL H TRIGLYCERIDE 88 mg/dL 0-150 LDL calculated 142 mg/dL H 0-129 CHOL/HDL 4.5 HDL CHOLESTEROL 46 mg/dL 40-60 Apr 10, 2024 12:38 PM [facility] LIVER FUNCTION SERUM Specimen Type: SERUM No comment entered. Ordering Provider: KI HEDRICK Report Released Date/Time: Apr 01, 2024 10:17 AM Reporting Lab: [address] [address] Performing Lab: [address] [address] PROTEIN,TOTAL 6.6 g/dL 6.0-8.3 ALBUMIN 3.5 g/dL 3.5-5.0 ALKALINE PHOSPHATASE 60 U/L 40-150 AST 15 U/L 5-34 ALT 16 U/L BILIRUBIN, TOTAL 0.4 mg/dL 0.2-1.2 Apr 10, 2024 12:38 PM [facility] BASIC METABOLIC PANEL (fasting) SERUM Specime n Type: SERUM No comment entered. Ordering Provider: KI HEDRICK Report Released Date/Time: Apr 01, 2024 10:17 AM Reporting Lab: [facility] [address] [facility] [address] Performing Lab: [facility] [address] [facility] [address] UREA NITROGEN 16 mg/dL 7-25 GLUCOSE 95 mg/dL 65-100 SODIUM 141 mmol/L 135-145 POTASSIUM 4.3 mmol/L 3.5-5.0 CHLORIDE 110 mmol/L 100-110 CO2 22 meq/L 20-30 CREATININE, Serum 0.95 mg/dL 0.50-1.40 eGFR(CKD-EPI 2020) 86 mL/min >60 Apr 10, 2024 12:38 PM [facility] CBC AND DIFF (AUTO) BLOOD Specimen Type: HEDY William No comment entered. Ordering Provider: KI HEDRICK Report Released Date/Time: Apr 01, 2024 10:17 AM Reporting Lab: [address] [address] Performing Lab: [facility] [address] [facility] [address] WBC 5.67 10*3/uL 4.50-11.00 RBC 4.61 10*6/uL 4.23-5.66 HGB 13.3 g/dL 12.8-17 HCT 39.4 39.2-50.4 MCV 85.5 fL 82-99 MCHC 33.8 g/dL 30.8-35.1 PLT 274 10*3/uL 140-360 RDW-CV 13.6 12.0-16.0 MONO, ABS 0.62 10*3/uL 0.30-1.10 MCH 28.9 pg 26.2-32.6 NEUT % 56.4 43.7-75.8 LYMPH % 27.3 14.0-42.3 MONO % 10.9 5.1-13.7 EOS % 4.1 0.4-6.8 BASO % 0.9 0.1-2.0 NEUT, ABS 3.20 10*3/uL 2.20-7.60 LYMPH, ABS 1.55 10*3/uL 1.00-3.20 EOS, ABS 0.23 10*3/uL 0.03-0.44 BASO, ABS 0.05 10*3/uL 0.01-0.13 IMMATURE GRAN % 0.4 0.0-0.7 IMMATURE GRAN, ABS 0.02 10*3/uL 0.00-0.0 6 NRBC % 0.0 0.0-0.0 NRBC, ABS 0.00 10*3/uL 0.00-0.00 Vital Signs: All taken on the encounter date This section contains inpatient and outpatient Vital Signs collected on the date of the Encounter. Date/Time Temperature Pulse Blood Pressure Respiratory Rate SP02 Pain Height Weight Body Mass Index Source Apr 10, 2024 01:20 PM 98.4 74 140/90 16 98 0 218 31 [facility] Immunizations: All administered on the encounter date This section contains immunizations associated to the Encounter. Immunization Series Date Issued Administered By Site Reaction Lot Number CVX Code Drug Ticketer Comment(s) Source TDAP Apr 10, 2024 STEWART TAN E RIGHT DELTO ID [id number] [facility] Booster for Series, ADMINISTERE D AT [facility] Social History: Smoking Status (Most current) and Tobacco Use (All prior to encounter date) This section includes the most current, and the historical, smoking and tobacco- related health factors from the [place] facility where the Encounter took place. Current Smoking Status This section includes the most current smoking, or tobacco-related health factor, from the [place] facility where the Encounter took place. Date/Time Current Smoking Status Comment Nash shah Apr 10, 2024 01:30 PM VA-TOBACCO USE FOR ARTI CIGARETTES [facility] Tobacco Use History This section includes a history of the smoking, or tobacco-related health factors, that were collected on or before the date of the Encounter. The data comes from the [place] facility where the Encounter took place. Date/Time Smoking Status/Tobac co Use Comment Facility Apr 10, 2024 01:30 PM VA-TOBACCO USE FORMER CIGARETTES [facility] Mar 05, 2023 08:00 AM VA-TOBACCO FORMER USER [facility] Mar 05, 2023 08:00 AM CO-TOBACCO QUIT 15 YRS OR MORE [facility] Mar 06, 2022 08:30 AM VA-TOBACCO FORMER USER [facility] [place] [facility] Mar 06, 2022 08:30 AM VA-TOBACCO QUIT 15 YRS OR MORE [facility] [place] [facility] Mar 06, 2021 08:30 AM VA-TOBACCO FORMER USER [facility] [place] [facility] Mar 06, 2021 08:30 AM VA-TOBACCO QUIT 15 YRS OR MORE [facility] [place] [facility] Feb 02, 2020 08:00 AM VA-TOBACCO FORMER USER [facility] [place] [facility] Feb 02, 2020 08:00 AM VA-TOBACCO QUIT 15 YRS OR MORE [facility] [place] [facility] Oct 28, 2017 08:55 AM LIFETIME NON-TOBACCO USER [facility] [place] [facility] Sep 04, 2016 01:54 PM QUIT TOBACCO USE > 7 YEARS AGO [facility] [place] [facility] Aug 18, 2015 08:48 AM QUIT TOBACCO USE > 7 YEARS AGO quit 50 yrs ago [facility] [place] [facility] Apr 24, 2011 01:09 PM QUIT TOBACCO USE > 7 YEARS AGO [facility] [place] [facility] Apr 10, 2010 09:50 AM QUIT TOBACCO USE 1-7 YEARS AGO [facility] [place] [facility] Jul 08, 2009 08:35 AM QUIT TOBACCO USE 1-7 YEARS AGO [facility] [place] [facility] July 20, 2008 09:56 AM QUIT TOBACCO USE 1-7 YEARS AGO [facility] [place] [facility] Aug 13, 2007 08:25 AM QUIT TOBACCO USE 1-7 YEARS AGO [facility] [place] [facility] Jun 23, 2007 08:00 AM QUIT TOBACCO USE 1-7 YEARS AGO [facility] [place] [facility] Jan 09, 2007 07:56 AM QUIT TOBACCO USE IN PAST YEAR [facility] [place] [facility] Mar 14, 2006 09:05 AM QUIT TOBACCO USE 1-7 YEARS AGO I quit in October. [facility] [place] [facility] Feb 28, 2006 08:06 AM QUIT TOBACCO USE IN PAST YEAR QUIT OCTOBER 2005 [facility] [place] [facility] Advance Directives: All historical and current Section Date Range: From patient's date of to the date document was created. This section includes ALL of a patient's completed or amended [place] Advance and Rescinded Directives. The entries below indicate that a directive exists for the patient, but an actual copy is not included with this document. The data comes from all [place] facilities. Date Advance Directives Provider Source Sep 24, 2002 ADVANCE DIRECTIVE ROXANA NOLASCO [facility] Encounter Notes: All associated encounter notes This section contains the clinical notes associated to the Encounter. Date/Time Encounter Note(s) Provider Source Apr 10, 2024 03:18 PM LETTERS: LOCAL TITLE: PATIENT LETTER (B) STANDARD TITLE: LETTERS DATE OF NOTE: APR 10, 2024@15:18 ENTRY DATE: APR 10, 2024@15:18:16 AUTHOR: KI HEDRICK COSIGNER: URGENCY: STATUS: COMPLETED The following letter was mailed to ADOLFO BOO on APR 10, 2024 [address] [place] [id number] APR 10, [address], : Feb Your recent labs were as expected. No change in your care plan is needed. Please share with any NONVA providers. Results are viewable thru [facility]. Below are your pending appointments at the [facility]: 04/09/2025 08:00 CWM/NO/PACT 3 If you have questions, please contact me through our Telephone Advice Program at: [phone] extension [phone] or [phone] extension [phone] (toll free in this region only). Sincerely, Ki Hedrick PA-C [facility] [address] [place] [address] Ex [facility] Apr 10, 2024 01:38 PM PHYSICIAN CARRIAGE DOGGER NOTE: LOCAL TITLE: LÓPEZ CARDOZA STANDARD TITLE: PHYSICIAN CARRIAGE DOGGER NOTE DATE OF NOTE: APR 10, 2024@13:38 ENTRY DATE: APR 10, 2024@13:38:46 AUTHOR: KI HEDRICK EXP COSIGNER: URGENCY: STATUS: COMPLETED CC/HPI/A/P: 69 year old MALE here in follow-up for; dyslipdiemia, on statin, gave blood today. GERD, on PPI. BPH, on terazosin. sees Dr Da Silva primarily outside. Review of systems: Patient reports no changes from [facility], in meds or any admissions. Active problems - Computerized Problem List is the source for the followin. Kidney Stone ([facility] [id number]) 2. Exposure to potentially hazardous substance Original RANDALL Screening completed 03/06/24 3. Hyperlipidemia ([facility] [id number]) 4. Arthritis, Psoriatic * 5. Osteoarthritis 6. Panic Disorder * 7. Headache * 8. Posttraumatic Stress Disorder * 9. Major Depression, recurrent Reviewed 10. Psoriasis * 11. GERD * 12. Hiatal hernia * SERVICE CONNECTED % - 60 VA and Non VA meds were reconciled with the patient who left with a corrected copy. See medication page for details. Active and Recently Outpatient Medications (excluding Supplies): Active Outpatient Medications Status 1) PANTOPRAZOLE NA 40MG EC TAB TAKE ONE TABLET BY MOUTH TWICE ACTIVE DAILY 2) SIMVASTATIN 20MG TAB TAKE ONE TABLET BY MOUTH AT BEDTIME FOR ACTIVE CHOLESTEROL NOTE - THIS IS A 20MG TABLET - DO NOT CUT IN HALF - DOSE INCREASE 3) TERAZOSIN HCL 5MG CAP TAKE ONE CAPSULE BY MOUTH AT BEDTIME ACTIVE Active Non-VA Medications Status 1) Non-VA ALBUTEROL 90MCG (CFC-F) 200D ORAL INHL 2 PUFFS BY ACTIVE MOUTH FOUR TIMES DAILY NEEDED 2) Non-VA ASPIRIN 325MG EC TAB 975 MG BY MOUTH EVERY DAY ACTIVE NEEDED 3) Non-VA DOXEPIN HCL 25MG CAP 25MG BY MOUTH ACTIVE 4) Non-VA FLUTICASONE PROP 50MCG 120D NASAL INHL 1 SPRAY INTO ACTIVE EACH NOSTRIL TWICE DAILY NEEDED 5) Non-VA MULTIVITAMIN/MINERALS CAP/TAB 1 TABLET BY MOUTH EVERY ACTIVE DAY 6) Non-VA OTHER CAP/TAB DULERA ACTIVE ([id number]/FORMOTE [id number] 2PUFFS BY MOUTH TWICE DAILY 7) Non-VA OTHER CAP/TAB IMMUNOTHERAPY BY MOUTH NEEDED ACTIVE 8) Non-VA OTHER CAP/TAB KETOTIFEN GTTS BY MOUTH TWICE DAILY ACTIVE 9) Non-VA OTHER CAP/TAB SKIRIVE (SP_ INJECTABLE FOR PSORIASIS ACTIVE BY MOUTH 10) Non-VA OTHER CAP/TAB USTEKINUMMAB/STELLARA EVERY THREE ACTIVE MONTHS 13 Total Medications 98.4 F [36.9 C] (04/10/2024 13:20) 74 (04/10/2024 13:20) 16 (04/10/2024 13:20) 140/90 (04/10/2024 13:20) 0 (04/10/2024 13:20) 70 in [177.8 cm] (03/06/2021 08:15) 218 lb [98.88 kg] (04/10/2024 13:20) BMI: 31.3 Neuro: Alert and oriented times three, grossly nonfocal, nasolabial folds intact. Advance Directive Screen MH AD: Patient has an Advance Directive on file at this [facility]. No updates are needed at this time. The patient received education about Advance Directives and written notification of his/her rights. Alcohol Use Screen (AUDIT-C): Alcohol Screen: SCREEN FOR ALCOHOL (AUDIT-C) An alcohol screening test (AUDIT-C) was negative (score=1). 1. How often did you have a drink containing alcohol in the past year? Consider a drink to be a 12 ounce can or bottle of regular beer, 8 ounces of malt liquor, a 5 ounce glass of table wine, or a 1.5 ounce shot of liquor (like scotch, gin, or vodka). Monthly or less 2. How many drinks containing alcohol did you have on a typical day when you were drinking in the past year? One or two drinks 3. How often did you have six or more drinks on one occasion in the past year? Never RHS Screen: RHS Screen Environmental Check Upon inquiry, the individual reports that the environment is safe to proceed. Informed Consent to Screen and Document The individual consents to proceed with screening. The individual consents to documentation of responses. PRIMARY SCREEN: In the past 12 months, how often did a current or former intimate partner (e.g., boyfriend, girlfriend, , , sexual partner): 1. Scream or curse at you Never 2. Insult or talk down to you Never 3. Threaten you with harm Never 4. Physically hurt you Never 5. Force or pressure you to have sexual contact against your will, or when you were unable to say no Never The HITS tool (items 1-4 above) is [place] copyright protected by Vickey Perdomo MD, and the user has full rights to use it throughout the [place] system. PRIMARY SCREEN RESULT: The Primary Screen is NEGATIVE. The individual answered never to all forms of IPV above (i.e., answered never to all 5 items) The individual accepts education and/or resources: Other: EDUCATION: Other: /guerrero/ Ki Hedrick PA-C STAFF PHYSICIAN CARRIAGE DOGGER Signed: 04/10/2024 13:42 KI HEDRICK [facility] [place] [facility] Apr 10, 2024 01:21 PM PREVENTIVE MEDICINE NURSING NOTE: LOCAL TITLE: CLINICAL REMINDERS/NURSING STANDARD TITLE: PREVENTIVE MEDICINE NURSING NOTE DATE OF NOTE: APR 10, 2024@13:21 ENTRY DATE: APR 10, 2024@13:21:17 AUTHOR: JOSE TAN EXP COSIGNER: URGENCY: STATUS: COMPLETED CLINICAL REMINDERS/NURSING Has ADDENDA Suicide Screen: C-SSRS Screening [place] Suicide Severity Rating Scale (C-SSRS) screener 1. Over the past month, have you wished you were or wished you could go to sleep and not wake up? No 2. Over the past month, have you had any actual thoughts of killing yourself? No 3. Over the past month, have you been thinking about how you might do this? Response not required due to responses to other questions. 4. Over the past month, have you had these thoughts and had some intention of acting on them? Response not required due to responses to other questions. 5. Over the past month, have you started to work out or worked out the details of how to kill yourself? Response not required due to responses to other questions. 6. If yes, at any time in the past month did you intend to carry out this plan? Response not required due to responses to other questions. 7. In your lifetime, have you ever done anything, started to do anything, or prepared to do anything to end your life (for example, collected pills, obtained a gun, gave away valuables, went to the roof but didn't jump)? No 8. If YES, was this within the past 3 months? Response not required due to responses to other questions. Homelessness/Food Insecurity Screen: In the past 2 months, have you been living in stable housing that you own, rent, or stay in as part of a household? Yes - Living in stable housing. Are you worried or concerned that in the next 2 months you may NOT have stable housing that you own, rent, or stay in as part of a household? No - Not worried about housing near future The [employer] reports the following: Within the past 12 months, you worried whether your food would run out before you got money to buy more. Never true Within the past 12 months, the food you bought just didn't last and you didn't have money to get more. Never true Depression Screening: Perform PHQ-2 A PHQ-2 screen was performed. The score was 0 which is a negative screen for depression. Over the past two weeks, how often have you been bothered by the following problems? 1. Little interest or pleasure in doing things Not at all 2. Feeling down, depressed, or hopeless Not at all PTSD Screening: PC-PTSD-5 A PTSD screening test (PC-PTSD-5) was negative (score=3). IN THE PAST MONTH, have you ever had any experience that was so frightening, horrible or traumatic. For example: A serious accident or fire a physical or sexual assault or abuse An earthquake or flood A war Seeing someone be killed or seriously injured Having a loved one through homicide or suicide 1. Have you ever experienced this kind of event? YES 2. Had nightmares about the event(s) or thought about the event(s) when you did not want to? NO 3. Tried hard not to think about the event(s) or went out of your way to avoid situations that reminded you of the event(s)? YES 4. Been constantly on guard, watchful, or easily startled? YES 5. Marianna numb or detached from people, activities, or your surroundings? YES 6. Marianna guilty or unable to stop blaming yourself or others for the event(s) or any problems the event(s) may have caused? NO Tobacco Use Screening: The patient is a former cigarette smoker. The patient has never used other types of tobacco. /guerrero/ JOSE TAN LPN Signed: 04/10/2024 13:24 04/10/2024 ADDENDUM STATUS: COMPLETED Alcohol Use Screen (AUDIT-C): Alcohol Screen: SCREEN FOR ALCOHOL (AUDIT-C) An alcohol screening test (AUDIT-C) was negative (score=0). 1. How often did you have a drink containing alcohol in the past year? Consider a drink to be a 12 ounce can or bottle of regular beer, 8 ounces of malt liquor, a 5 ounce glass of table wine, or a 1.5 ounce shot of liquor (like scotch, gin, or vodka). Never 2. How many drinks containing alcohol did you have on a typical day when you were drinking in the past year? Response not required due to responses to other questions. 3. How often did you have six or more drinks on one occasion in the past year? Response not required due to responses to other questions. Td / Tdap Immunization: Administered: TDAP Date Administered: Apr 10, 2024 13:30 Series: Booster Ticketer: Inuvo Lot: [id number] Exp Date: May 27, 2026 [facility]: [id number] Admin Route/Site: INTRAMUSCULAR/RIGHT DELTOID Dosage: 0.5mL Vaccine Information Statement(s): TDAP (TETANUS, DIPHTHERIA, PERTUSSIS) VACCINE VIS Oct 14, 2020 (SURINAMESE) Order By: Policy Administered By: Jose Tan Vaccine Information Sheet (VIS) was given to the patient/caregiver, education regarding adverse reactions was discussed, as well as barriers to learning, if any, were acknowledged. /guerrero/ JOSE TAN LPN Signed: 04/10/2024 13:40 [facility]
[2024-08-28 11:17] LABS: Alanine Aminotransferase 12 U/L (0-40); Albumin Level 3.8 g/dL (3.5-5.0); Alkaline Phosphatase 62 U/L (39-117); Aspartate Amino Transferase 24 U/L (5-37); Bilirubin Direct 0.2 mg/dL (0.0-0.5); Bilirubin Total 0.4 mg/dL (0.0-1.0); Cholesterol 145 mg/dL (<200); HDL Cholesterol 44 mg/dL (>40); LDL Cholesterol Calculated 87 mg/dL (<100); Total Protein 6.2 g/dL (6.5-8.0); Triglycerides 72 mg/dL (<150)
== END 2024-08-28 10:43 | disposition home or self-care (01) ==
LOC: HO.LNP 10:42
PROVIDERS: Visit Provider Internal Medicine
DX: Z01.84 Encounter for antibody response examination (principal)
CPT/HCPCS: 80061; 80076

== ENCOUNTER 2024-11-26 10:49 | Outpatient (REF) | payer BC, SELFPAY ==
[2024-11-26 10:52] LABS: MANUAL DIFF FLAG NO
[2024-11-26 11:01] LABS: Hematocrit 42.1 % (42.0-52.0); Hemoglobin 13.6 g/dl (14.0-18.0); Imm Gran Abs Auto 0.02 X10*3/uL (0.00-0.03); Imm Gran Pct Auto 0.3 % (0.0-0.4); Lymphocytes Absolute Auto 1.6 X10*3/uL (1.2-4.9); Mean Corpuscular HGB Conc 32.3 g/dl (31.0-36.0); Mean Corpuscular Hemoglobin 28.3 pg (27.0-33.0); Mean Corpuscular Volume 87.7 fL (80.0-98.0); NRBC Abs Auto 0.000 X10*3/uL (0.0-0.012); NRBC Pct Auto 0.0 /100WBC (0.0-0.2); Platelet Count 294 X10*3/uL (160-400); Red Blood Count 4.80 X10*6/uL (4.60-5.80); White Blood Count 6.4 X10*3/uL (4.8-10.8)
[2024-11-26 11:07] LABS: Appearance Urine Clear; Glucose Urine UA Negative (Negative); PH 5.5 (5.0-9.0); Specific Gravity - Urine 1.020 (1.005-1.025)
[2024-11-26 11:30] LABS: Alanine Aminotransferase 14 U/L (0-40); Albumin Level 3.9 g/dL (3.5-5.0); Alkaline Phosphatase 63 U/L (39-117); Anion Gap 7 (12-20); Aspartate Amino Transferase 21 U/L (5-37); Blood Urea Nitrogen 14 mg/dL (9-16); Calcium 9.2 mg/dL (8.4-10.2); Carbon Dioxide 28 mmol/L (22-29); Chloride 112 mmol/L (96-108); Cholesterol 157 mg/dL (<200); Estimated Glomerular Filt Rate > 60; HDL Cholesterol 42 mg/dL (>40); Potassium 4.4 mmol/L (3.3-5.1); Sodium 143 mmol/L (135-145); Total Protein 6.4 g/dL (6.5-8.0); Triglycerides 84 mg/dL (<150)
[2024-11-26 11:32] LABS: PSA,Total (Free>4and<10) 3.34 ng/mL (0.00-4.00)
== END 2024-11-26 10:50 | disposition home or self-care (01) ==
LOC: HO.LNP 10:49
PROVIDERS: Visit Provider Internal Medicine
DX: Z00.00 Encounter for general adult medical examination without abnormal findings (principal); Z12.5 Encounter for screening for malignant neoplasm of prostate; E78.00 Pure hypercholesterolemia, unspecified; R97.20 Elevated prostate specific antigen [PSA]
CPT/HCPCS: 80053; 80061; 81001; 84153; 85025

== ENCOUNTER 2024-12-14 10:43 | Outpatient (REF) | payer BC, SELFPAY ==
--- OUTSIDE RECORDS SUMMARY | 2024-05-26 05:00 | XMS_ITS ---
Author Organization Yosi Da Silva MD Address [address] [place], [place] [id number] Care Team Providers Care Muck Farmer Name Role Phone Yosi Da Silva Primary Care Provider Allergies No Known Allergies REASON FOR VISIT 6 month Medications Medication SIG (Take, Route, Frequency, Duration) Notes Start Date End Date Status Skyrizi (150 MG Dose) 75 MG/0.83ML 1.66 ml Subcutaneous once every 3 months Active Pantoprazole Sodium 40 MG 1 tablet Orally Once a day for 90 days Active Flonase 50 MCG/ACT 1 spray in each nost ril Nasally Once a day Active Nasacort AQ Active Terazosin HCl 5 MG 2 capsule Orally Onc e a day Active Opzelura 1.5 % 1 application Backfiller ally Twice a day Active EpiPen 2-Ruiz 0.3 MG/0.3ML Injection Not-Taking Stelara 45 MG/0.5ML as directed Subcutan eous every 3 months Not-Taking ProAir HFA 108 (90 Base) MCG/ACT 2 puffs as needed Inhalation every 4 hrs for 30 days 07/21/2012 Not-Taking Dulera 200-5 MCG/ACT 2 puffs Inhalation Twice a day Not-Taking Atorvastatin Calcium 20 MG 1 tablet Orally Once a day for 90 days 05/26/2024 Active Vital Signs Blood pressure systolic 114 mm Hg 05/27/19 25 Blood pressure diastolic 76 mm Hg 025 Height 70.25 in 05/26/2024 Weight 218 lbs 05/26/2024 BMI 31.05 kg/m2 05/26/2024 weight is jup 3 pounds since 12-16-23 Encounters Encounter Location Date Provider Diagnosis Yosi Da Silva MD [address] [place] [phone] 05/26/2024 Yosi Da Silva Immunity status test ing Z01.84 and Pure hypercholesterolemia E78.00 Assessments Encounter Date Diagnosis (ICD Code) Assessment Notes Treatment Notes Treatment Clinical Notes Section Notes 05/26/2024 Immunity status test ing (ICD-10 - Z01.84) 05/26/2024 Pure hypercholesterolemia (ICD-10 - E78.00) Plan Of Treatment Medication Medication Name Sig Start Date Stop Date Notes Simvastatin 20 MG 1 tablet every eveni ng Orally Once a day Atorvastatin Calcium 20 MG 1 tablet Oral ly Once a day for 90 days 05/26/2024 Pending Test Test Name Order Date MEASLES ANTIBODY (IGG) 05/26/2024 Next Appt Details Provider Name:Yosi rocha, 05/27/2025 08:00:00 AM, [address] [place] [address], [phone], Provider Name:Yosi rocha, 06/03/2025 09:00:00 AM, [address] [place] [address], [phone], Provider Name:Yosi rocha, 11/29/2025 07:30:00 AM, [address] [place] [address], [phone], Provider Name:Yosi rocha, 12/06/2025 09:30:00 AM, [address] [place] [address], [phone], Progress Notes * Eliezer SCHNEIDER:1955 (69 yo M)Acc No.[id number]:05/26/2024 Progress Notes Patient: Heriberto LYLE Number:[id number] Provider: Moira Da Silva MD :1955 A ge:69 Y S ex:Male Date:05/26/2024 Address:[address] [place], [place] [phone] Subjective: * Chief Complaints: * 6 month * HPI: S ymptom(s): patient is a 69 yo male here for 6 month follow up visit. * ROS: G eneral/Constitutional: Denies C hills. D enies F atigue. D enies F ever. D enies H eadache. E NT: Denies S ore throat. R espiratory: Denies C ough. D enies S hortness of breath at rest. A dmits S hortness of breath with exertion. C ardiovascular: Denies C hest pain at rest. D enies C hest pain with exertion. D enies D izziness. D enies P alpitations. A dmits S hortness of breath. G astrointestinal: Denies D iarrhea. D enies N ausea. * Medical History: * Surgical History: * Hospitalization/Major Diagno stic Procedure: * Medications: T akingOpzelura 1.5 % Cream 1 application Externally Twice a day Nasacort AQ Flonase 50 MCG/ACT Suspension 1 spray in each nostril Nasally Once a day Pantoprazole Sodium 40 MG Tablet Delayed Release 1 tablet Orally Once a day Skyrizi (150 MG Dose) 75 MG/0.83ML Prefilled Syringe Kit 1.66 ml Subcutaneous once every 3 months Terazosin HCl 5 MG Capsule 2 capsule Orally Once a day Simvastatin 20 MG Tablet 1 tablet every evening Orally Once a day Taking Opzelura 1.5 % Cream 1 application Externally Twice a day Taking Nasacort AQ Taking Flonase 50 MCG/ACT Suspension 1 spray in each nostril Nasally Once a day Taking Pantoprazole Sodium 40 MG Tablet Delayed Release 1 tablet Orally Once a day Taking Skyrizi (150 MG Dose) 75 MG/0.83ML Prefilled Syringe Kit 1.66 ml Subcutaneous once every 3 months Taking Terazosin HCl 5 MG Capsule 2 capsule Orally Once a day Taking Simvastatin 20 MG Tablet 1 tablet every evening Orally Once a day Not-Taking/PRNDulera 200-5 MCG/ACT Aerosol 2 puffs Inhalation Twice a day ProAir HFA 108 (90 Base) MCG/ACT Aerosol Solution 2 puffs as needed Inhalation every 4 hrs Stelara 45 MG/0.5ML Solution as directed Subcutaneous every 3 months EpiPen 2-Ruiz 0.3 MG/0.3ML Solution Auto-injector Injection Medication List reviewed and reconciled with the patientNot-Taking/PRN Dulera 200-5 MCG/ACT Aerosol 2 puffs Inhalation Twice a day Not-Taking/PRN ProAir HFA 108 (90 Base) MCG/ACT Aerosol Solution 2 puffs as needed Inhalation every 4 hrs Not-Taking/PRN Stelara 45 MG/0.5ML Solution as directed Subcutaneous every 3 months Not-Taking/PRN EpiPen 2-Ruiz 0.3 MG/0.3ML Solution Auto-injector Injection Medication List reviewed and reconciled with the patient * Allergies: N .K.D.A.yes[Allergies Verified] Objective: * Vitals: H t: 70.25, Wt: 218, BMI:31.05, BP:114/76, Wt-k.88. weight is jup 3 pounds since 12-16-23. * P ast Orders: L ab:Lipid Panel with Reflex (Order Date - 05/19/2024) (Collection Date & Time - 05/19/2024 08:00 AM) Value Reference Range Triglycerides 67 <150 - mg/dL Cholesterol 172 <200 - mg/dL LDL Cholesterol Calculated 113 H <100 - mg/dL HDL Cholesterol 46 >40 - mg/dL L ab:Hold Gold (Order Date - 05/19/2024) (Collection Date & Time - 05/19/2024 08:00 AM) Value Reference Range Hold Gold See Note - L ab:Liver Panel (Order Date - 05/19/2024) (Collection Date & Time - 05/19/2024 08:00 AM) Value Reference Range Bilirubin Total 0.4 0.0-1.0 - mg/dL Bilirubin Direct 0.2 0.0-0.5 - mg/dL Aspartate Amino Transferase 25 5-37 - U/L Alanine Aminotransferase 12 0-40 - U/L Total Protein 7.0 6.5-8.0 - g/dL Albumin Level 3.9 3.5-5.0 - g/dL Alkaline Phosphatase 58 39-117 - U/L * Examination: G eneral Examination: GENERAL APPEARANCE: h ealthy appearing but very agitated about difficulties with his insurance companies. HEAD: n ormocephalic. HEART: n o murmurs, rubs, gallops, regular rate and rhythm.? LUNGS: n o wheezes, rales, rhonchi, good air movement, clear to auscultation bilaterally. Assessment: * Assessment: 1. I mmunity status testing - Z01.84 (Primary) 2 . P ure hypercholesterolemia - E78.00 Plan: * Treatment: 2. P ure hypercholesterolemia Start Atorvastatin Calcium Tablet, 20 MG, 1 tablet, Orally, Once a day, 90 days, 90 Tablet, Refills 3. * Procedure Codes: * * Sign off status: Completed true * Provider: Moira Da Silva MD Date: 0 05/26/2024 Generated for Armida dee/Roni/Kadysmitting on: 1 12:50 PM EDT History and Physical Notes * HPI (History of Present Illness) Category Sub-Category Detail Notes Category Not es Symptom(s) patient is a 69 yo male here for 6 month follow up visit. Examination Category Sub-Category Detail Notes Category Not es General Examination GENERAL APPEARANCE: healthy appearing but very agitated about difficulties with his insurance companies HEAD: normocephalic HEART: no murmurs, rubs, ga llops, regular rate and rhythm LUNGS: no wheezes, rales, r honchi, good air movement, clear to auscultation bilaterally
--- OUTSIDE RECORDS SUMMARY | 2024-08-28 03:15 | XMS_ITS ---
Author Organization Yosi Da Silva MD Address [address] [place], [place] [id number] Care Team Providers Care Quality Assurance Assessor Name Role Phone Rekha Yosi Primary Care Provider Results Component Value Reference Range Notes Liver Panel Reviewed date:08/28/2024 04:36:48 PM Interpretation: Performing Lab:[facility], [address] [place] [phone] Notes/Report: Bilirubin Total 0.4 0.0-1.0 mg/dL Bilirubin Direct 0.2 0.0-0.5 mg/dL Aspartate Amino Transferase 24 5-37 U/L Alanine Aminotransferase 12 0-40 U/L Total Protein 6.2 6.5-8.0 g/dL Albumin Level 3.8 3.5-5.0 g/dL Alkaline Phosphatase 62 39-117 U/L Lipid Panel Reviewed date:08/28/2024 04:36:36 PM Interpretation: Performing Lab:[facility], [address] [place] [phone] Notes/Report: Triglycerides 72 <150 mg/dL Desirable Triglyceride: less than 150 mg/dL Borderline High Triglyceride 150-199 mg/dL High Triglyceride: 200-499 mg/dL Very High Triglyceride: greater than or equal to 5OO mg/dL Cholesterol 145 <200 mg/dL Desirable Cholesterol: less than 200 mg/dL Borderline High Cholesterol: 200-239 mg/dL High Cholesterol: greater than 239 mg/dL LDL Cholesterol Calculated 87 <100 mg/dL Desirable LDL: less than 100 mg/dL Near Optimal/Above Optimal LDL: 110-129 mg/dL Borderline High LDL: 130-159 mg/dL High LDL: 160-189 mg/dL Very High LDL: greater than or equal to 190 mg/dL HDL Cholesterol 44 >40 mg/dL Desirable HDL: greater than 40 mg/dL Note: This HDL assay may give artificially low results in patients with liver disease. REASON FOR VISIT fasting lipids/ liver Encounters Encounter Location Date Provider Diagnosis Yosi Da Silva MD [address] [place] [phone] 08/28/2024 Yosi Da Silva Immunity status testing Z01.84 Assessments Encounter Date Diagnosis (ICD Code) Assessment Notes Treatment Notes Treatment Clinical Notes Section Notes 08/28/2024 Immunity status testing (ICD-10 - Z01.84) Plan Of Treatment Next Appt Details Provider Name:Yosi rocha, 05/27/2025 08:00:00 AM, [address] [place] [address], [address], [phone], Provider Name:Yosi rocha, 06/03/2025 09:00:00 AM, [address] [place] [address], [address], [phone], Provider Name:Yosi rocha, 11/29/2025 07:30:00 AM, [address] [place] [address], [address], [phone], Provider Name:Yosi lyr, 12/06/2025 09:30:00 AM, [address] [place] [address], [phone], Progress Notes * Heriberto BOODOB:1955 (69 yo M)Acc No.[id number]:08/28/2024 Progress Note Patient: Heriberto LYLE Provider: Moira Da Silva MD :1955 A ge:69 Y S ex:Male Date:08/28/2024 Address:[address] [place], [place] [phone] Subjective: * Chief Complaints: * 1 . Fasting lipids/ liver. * Medical History: Objective: * Vitals: Assessment: * Assessment: 1. I mmunity status testing - Z01.84 (Primary) Plan: * Treatment: * Procedure Codes: 3 6415 VENIPUNCT, ROUTINE* * * The named appointment provid er may or may not be the originator of this progress note, and it is not deemed complete until electronically signed by the appointment provider. Sign off status: Pending * Provider: Moira Da Silva MD Date: 0 08/28/2024 Generated for Armida dee/Roni/Alannahitting on: 1 12:50 PM EDT
--- OUTSIDE RECORDS SUMMARY | 2024-11-26 03:15 | XMS_ITS ---
Author Organization Yosi Da Silva MD Address [address] [place], [place] [id number] Care Team Providers Care Budget Manager Name Role Phone Rekha Yosi Primary Care Provider [phone] Results Component Value Reference Range Notes Complete Blood Count Auto Di ff Reviewed date:11/26/2024 12:33:09 PM Interpretation: Performing Lab:[facility], [address] [place] [phone] Notes/Report: White Blood Count 6.4 4.8-10.8 X10*3/uL Red Blood Count 4.80 4.60-5.80 X10*6/uL Hemoglobin 13.6 14.0-18.0 g/dl Hematocrit 42.1 42.0-52.0 % Mean Corpuscular Volume 87.7 80.0-98.0 fL Mean Corpuscular Hemoglobin 28.3 27.0-33.0 pg Mean Corpuscular HGB Conc 32.3 31.0-36.0 g/dl Red Cell Distribution Width 14.3 11.0-16.0 % Platelet Count 294 160-400 X10*3/uL Mean Platelet Volume 9.8 9.4-12.4 fL Neutrophils Percent Auto 58.2 45-73 % Imm Gran Pct Auto 0.3 0.0-0.4 % Lymphocytes Percent Auto 25.0 20-40 % Monocytes Percent Auto 9.9 2-11 % Eosinophils Percent Auto 5.7 0-4 % Basophils Percent Auto 0.9 0-2 % NRBC Pct Auto 0.0 0.0-0.2 /100WBC Neutrophils Absolute Auto 3.7 2.0-8.3 x10*3/u L Imm Gran Abs Auto 0.02 0.00-0.03 X10*3/uL Lymphocytes Absolute Auto 1.6 1.2-4.9 X10*3/u L Monocytes Absolute Auto 0.6 0.1-1.2 X10*3/uL Eosinophils Absolute Auto 0.4 0.0-0.4 X10*3/u L Basophils Absolute Auto 0.1 0.0-0.2 X10*3/uL NRBC Abs Auto 0.000 0.0-0.012 X10*3/uL Lipid Panel Reviewed date:11/26/2024 12:22:46 PM Interpretation: Performing Lab:[address] [phone] Notes/Report: Triglycerides 84 <150 mg/dL Desirable Triglyceride: less than 150 mg/dL Borderline High Triglyceride 150-199 mg/dL High Triglyceride: 200-499 mg/dL Very High Triglyceride: greater than or equal to 5OO mg/dL Cholesterol 157 <200 mg/dL Desirable Cholesterol: less than 200 mg/dL Borderline High Cholesterol: 200-239 mg/dL High Cholesterol: greater than 239 mg/dL LDL Cholesterol Calculated 99 <100 mg/dL Desirable LDL: less than 100 mg/dL Near Optimal/Above Optimal LDL: 110-129 mg/dL Borderline High LDL: 130-159 mg/dL High LDL: 160-189 mg/dL Very High LDL: greater than or equal to 190 mg/dL HDL Cholesterol 42 >40 mg/dL Desirable HDL: greater than 40 mg/dL Note: This HDL assay may give artificially low results in patients with liver disease. PSA,Total (Free>4and<10) Reviewed date:12/03/2024 09:09:16 AM Interpretation:ANASTACIA 12/03 Performing Lab:[address] [phone] Notes/Report: PSA,Total (Free>4and<10) 3.34 0.00-4.00 ng/mL A Free PSA was not [...] (CMIA) UA ClnCatch+Micro w/rflx Cul t Reviewed date:11/26/2024 12:25:53 PM Interpretation: Performing Lab:[facility], [address] [place] [phone] Notes/Report: Urine, Clean Catch Color Urine Yellow Appearance Urine Clear PH 5.5 5.0-9.0 Glucose Urine UA Negative Negative mg/dL Urine Blood Negative Negative Specific [place] - Urine 1.020 1.005-1.025 Urine Protein Negative Neg-Trace mg/dL Urine Ketones Negative Negative mg/dL Nitrite Urine Negative Negative Leukocyte Esterase Urine Negative Negative RBC Urine 0-2 0-2 /HPF WBC Urine 0-5 0-5 /HPF Squamous Epithelial Cell Urine 0-2 0-2 /HPF Bacteria Urine None Seen None Seen Hyaline Casts Urine 0-2 0-2 /LPF REASON FOR VISIT yearly fasting labs Encounters Encounter Location Date Provider Diagnosis Yosi Da Silva MD [address] [place] [address] [address] [place], [place] [phone] 11/26/2024 Yosi Da Silva Blood tests for rout ine general physical examination Z00.00 ; Pure hypercholesterolemia E78.00 and Elevated PSA R97.20 Assessments Encounter Date Diagnosis (ICD Code) Assessment Notes Treatment Notes Treatment Clinical Notes Section Notes 11/26/2024 [address] tests for [address] ine general physical examination (ICD-10 - Z00.00) 11/26/2024 Pure hypercholesterolemia (ICD-10 - E78.00) 11/26/2024 Elevated PSA (ICD-10 - R97.20) Plan Of Treatment Pending Test Test Name Order Date Comprehensive [place]. Panel Fast Next Appt Details Provider Name:Yosi López ier, 05/27/2025 08:00:00 AM, [address], [address], [place], [place], [phone], Provider Name:Yosi López ier, 06/03/2025 09:00:00 AM, [address], [address], [place], [place], [phone], Provider Name:Yosi López ier, 11/29/2025 07:30:00 AM, [address], [address], [place], [place], [phone], Provider Name:Yosi López ier, 12/06/2025 09:30:00 AM, [address], [address], [place], [place], [phone], Progress Notes * Heriberto BOODOB:1955 (69 yo M)Acc No.[id number]:11/26/2024 Progress Note Patient: Heriberto LYLE Provider: Moira Da Silva MD :1955 A ge:69 Y S ex:Male Date:11/26/2024 Address:[address] [place], [place] [phone] Subjective: * Chief Complaints: * 1 . Yearly fasting labs. * Medical History: Objective: * Vitals: Assessment: * Assessment: 1. B lood tests for routine general physical examination - Z00.00 (Primary) 2 .?Pure hypercholesterolemia - E78.00 3 . E levated PSA - R97.20 ? Plan: * Treatment: 2. P ure hypercholesterolemia L AB: Comprehensive [place]. Panel Fast L AB: Complete Blood Count Auto Diff (Collection Date & Time - 11/26/2024 07:15 AM) L AB: Lipid Panel (Collection Date & Time - 11/26/2024 07:15 AM) L AB: PSA,Total (Free>4and<10) (Collection Date & Time - 11/26/2024 07:15 AM) L AB: UA ClnCatch+Micro w/rflx Cult (Collection Date & Time - 11/26/2024 07:15 AM) 3. E levated PSA L AB: Comprehensive [place]. Panel Fast L AB: Complete Blood Count Auto Diff (Collection Date & Time - 11/26/2024 07:15 AM) L AB: Lipid Panel (Collection Date & Time - 11/26/2024 07:15 AM) L AB: PSA,Total (Free>4and<10) (Collection Date & Time - 11/26/2024 07:15 AM) L AB: UA ClnCatch+Micro w/rflx Cult (Collection Date & Time - 11/26/2024 07:15 AM) * Procedure Codes: 3 6415 VENIPUNCT, ROUTINE* * * The named appointment provid er may or may not be the originator of this progress note, and it is not deemed complete until electronically signed by the appointment provider. Sign off status: Pending * Provider: Moira Da Silva MD Date: 0 11/26/2024 Generated for Armida dee/Roni/Alannahitting on: 1 12:50 PM EDT
--- OUTSIDE RECORDS SUMMARY | 2024-12-03 04:00 | XMS_ITS ---
Author Organization Yosi Da Silva MD Address [address] [place], [place] [phone] Care Team Providers Care Crotch Piece Baster Name Role Phone Yosi Da Silva Primary Care Provider [phone] Allergies No Known Allergies REASON FOR VISIT annual visit, CBACK PSA Medications Medication SIG (Take, Route, Frequency, Duration) Notes Start Date End Date Status ProAir HFA 108 (90 Base) MCG/ACT 2 puffs as needed Inhalation every 4 hrs for 30 days 07/21/2012 Not-Taking Stelara 45 MG/0.5ML as directed Subcutan eous every 3 months Not-Taking Atorvastatin Calcium 20 MG 1 tablet Orally Once a day for 90 days 05/26/2024 Active Dulera 200-5 MCG/ACT 2 puffs Inhalation Twice a day Not-Taking EpiPen 2-Ruiz 0.3 MG/0.3ML Injection Not-Taking Nasacort AQ Active Skyrizi (150 MG Dose) 75 MG/0.83ML 1.66 ml Subcutaneous once every 3 months Active Terazosin HCl 5 MG 2 capsule Orally Onc e a day Active Flonase 50 MCG/ACT 1 spray in each nost ril Nasally Once a day Active Pantoprazole Sodium 40 MG 1 tablet Orally Once a day for 90 days Active Opzelura 1.5 % 1 application Food Aide ally Twice a day Active Immunizations Vaccine Route Administration Date Status Comme nts Fluarix Quadrivalent - 150 Unknown 12/03/2024 Refused Social History Tobacco Use: Social History [...] Interpretation Negative Vital Signs Blood pressure systolic 112 mm Hg 12/04/19 25 Blood pressure diastolic 84 mm Hg 025 Height 70.25 in 12/03/2024 Weight 210 lbs 12/03/2024 BMI 29.91 kg/m2 12/03/2024 weight is down 8 pounds [facility] 05-26-24 Encounters Encounter Location Date Provider Diagnosis Yosi Da Silva MD [address] [place] [address] [place] [phone] 12/03/2024 Yosi Da Silva Annual physical exam Z00.00 ; Elevated PSA R97.20 ; Prostatism N40.0 ; Pelvic pain R10.2 and Pure hypercholesterolemia E78.00 Assessments Encounter Date Diagnosis (ICD Code) Assessment Notes Treatment Notes Treatment Clinical Notes Section Notes 12/03/2024 Annual physical exam (ICD-10 - Z00.00) 12/03/2024 Elevated PSA (ICD-10 - R97.20) 12/03/2024 Prostatism (ICD-10 - N40.0) 12/03/2024 Pelvic pain (ICD-10 - R10.2) order faxed to [facility] 12/03/2024 Pure hypercholesterolemia (ICD-10 - E78.00) Plan Of Treatment Treatment Notes Assessment Notes Pelvic pain order faxed to [facility] Pending Test Test Name Order Date CT ABD & PELVIS WITH CONTRAST 12/03/2024 PSA,Total (Free>4and<10) 12/03/2024 Next Appt Details Follow Up: after cat scan, Chriss reid: Provider Name:Yosi López ier, 05/27/2025 08:00:00 AM, [address], [address], [place], [place], [phone], Provider Name:Yosi López ier, 06/03/2025 09:00:00 AM, [address], [address], [place], [place], [phone], Provider Name:Yosi López ier, 11/29/2025 07:30:00 AM, [address] [place] [address] Drive, [address], [place], [place], [phone], Provider Name:Yosi López ier, 12/06/2025 09:30:00 AM, [address] [place] [address], [address], [place], [place], [phone], Progress Notes * Heriberto BOODOB:1955 (69 yo M)Acc No.[id number]:12/03/2024 Progress Notes Patient: Heriberto LYLE Provider: Moira Da Silva MD :1955 A ge:69 Y S ex:Male Date:12/03/2024 Address:[address] [place], [place] [phone] Subjective: * Chief Complaints: * A nnual visitCBACK PSA * HPI: D epression Screening: PHQ-9 L ittle interest or pleasure in doing things N ot at all, F eeling down, depressed, or hopeless N ot at all, T rouble falling or staying asleep, or sleeping too much N ot at all, F eeling tired or having little energy N ot at all, P oor appetite or overeating N ot at all, F eeling bad about yourself or that you are a failure, or have let yourself or your family down N ot at all, T rouble concentrating on things, such as reading the newspaper or watching television N ot at all, M oving or speaking so slowly that other people could have noticed; or the opposite, being so fidgety or restless that you have been moving around a lot more than usual N ot at all, T houghts that you would be better off or of hurting yourself in some way N ot at all, T otal Score 0 . I nterpretation and Intervention D epression Screening Findings N egative, F ollow-Up for Depression : review of PHQ-9 found negative result, no follow-up needed. C ommunication Needs: Communication Needs D oes the patient have a hearing impairment N o, D oes the patient have a vision impairment? Y es, I f yes, what is the vision impairment? G lasses, D oes the patient have a cognition impairment? N o. F all Risk: History H ave you had any falls with injury in the past year? N o, H ave you had two or more falls in the past year? N o. S ARMANDO Questions: SDOH Questions I n the past year have you been worried about losing housing? N o, I n the past year have you or any family members you live with been unable to get any of the following when it was really needed? Check all that apply: N one. S ymptom(s): Patient is a 69 yo male here for annual visit with review of recent labs and follow up of chronic issues. h aving pain in pelvic area. had some kidney stones. * ROS: G eneral/Constitutional: Change in appetite d enies. C hills d enies. F ever d enies. O phthalmologic: Blurred vision d enies. D ischarge d enies. P ain d enies. E NT: Decreased hearing d enies. S ore throat d enies.?Swollen glands d enies. E ndocrine: Cold intolerance d enies. E xcessive thirst d enies. H eat intolerance d enies. W eight loss d enies. R espiratory: Cough d enies. S hortness of breath at rest d enies. S hortness of breath with exertion d enies. W heezing d enies. C ardiovascular: Chest pain at rest d enies. C hest pain with exertion?denies. I rregular heartbeat d enies. S hortness of breath d enies. ? G astrointestinal: Abdominal pain d enies. C hange in bowel habits d enies. D iarrhea d enies. N ausea d enies. R ectal bleeding d enies. V omiting d enies . G enitourinary: Blood in urine d enies. D ifficulty urinating d enies. F requent urination d enies. M usculoskeletal: Painful joints d enies. W eakness d enies. ? S kin: Dry skin d enies. I tching d enies. D enies?Mole(s), changes in moles, new moles or any lesions of concern. D enies P hotosensitivity. R dayo d enies. N eurologic: Dizziness d enies. F ainting d enies. H eadache?denies. * Medical History: * Surgical History: * Hospitalization/Major Diagno stic Procedure: * Family History: F ather: . M other: 83 yrs, diagnosed with Cancer. 1 sister(s) . .? Father-Unknown 1 sister Mother- Cancer, Denies mental health/substance abuse family history, Denies mental health/substance abuse family history, No pertinent family medical history. * Social History: T obacco Use: T obacco Use/Smoking P atient is a f ormer smoker, H ow long has it been since you last smoked? > 10 years, A dditional Findings: Tobacco Non-User F ormer smoker, currently using no form of tobacco. D rugs/Alcohol: A lcohol Screen D id you have a drink containing alcohol in the past year? Y es, H ow often did you have a drink containing alcohol in the past year? 2 to 4 times a month (2 points), H ow many drinks did you have on a typical day when you were drinking in the past year? 1 or 2 drinks (0 point), H ow often did you have 6 or more drinks on one occasion in the past year? N ever (0 point), P oints 2 , I nterpretation N egative. M iscellaneous: C affeine: yes, frequency:, more than 4 cups per day. Children: no. Community involvements: no. 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 Home smoke detector use: yes. Housing: owning. Living with: spouse. Marital status: . Occupation: works full-time. Pets: cat X1. * Medications: T akingOpzelura 1.5 % Cream [...] Capsule 2 capsule Orally Once a day Atorvastatin Calcium 20 MG Tablet 1 tablet Orally Once a day Taking Opzelura 1.5 [...] 2 capsule Orally Once a day Taking Atorvastatin Calcium 20 MG Tablet 1 tablet Orally Once a day Not-Taking/PRNDulera 200-5 MCG/ACT Aerosol 2 puffs Inhalation Twice a day ProAir HFA 108 (90 Base) MCG/ACT Aerosol Solution 2 puffs as needed Inhalation every 4 hrs Stelara 45 MG/0.5ML Solution as directed Subcutaneous every 3 months EpiPen 2- Ruiz 0.3 MG/0.3ML Solution Auto-injector Injection Medication List [...] Objective: * Vitals: H t: 70.25, Wt: 210, BMI:29.91, BP:112/84, Wt-k.26. weight is down 8 pounds since 05-26-24. * P ast Orders: L ab:Complete Blood Count Auto Diff (Order Date - 11/26/2024) (Collection Date & Time - 11/26/2024 07:15 AM) Value Reference Range White Blood Count 6.4 4.8-10.8 - X10*3/uL Red Blood Count 4.80 4.60-5.80 - X10*6/uL Hemoglobin 13.6 L 14.0-18.0 - g/dl Hematocrit 42.1 42.0-52.0 - % Mean Corpuscular Volume 87.7 80.0-98.0 - fL Mean Corpuscular Hemoglobin 28.3 27.0-33.0 - pg Mean Corpuscular HGB Conc 32.3 31.0-36.0 - g/ dl Red Cell Distribution Width 14.3 11.0-16.0 - % Platelet Count 294 160-400 - X10*3/uL Mean Platelet Volume 9.8 9.4-12.4 - fL Neutrophils Percent Auto 58.2 45-73 - % Imm Gran Pct Auto 0.3 0.0-0.4 - % Lymphocytes Percent Auto 25.0 20-40 - % Monocytes Percent Auto 9.9 2-11 - % Eosinophils Percent Auto 5.7 H 0-4 - % Basophils Percent Auto 0.9 0-2 - % NRBC Pct Auto 0.0 0.0-0.2 - /100WBC Neutrophils Absolute Auto 3.7 2.0-8.3 - x10* 3/uL Imm Gran Abs Auto 0.02 0.00-0.03 - X10*3/uL Lymphocytes Absolute Auto 1.6 1.2-4.9 - X10* 3/uL Monocytes Absolute Auto 0.6 0.1-1.2 - X10*3/ uL Eosinophils Absolute Auto 0.4 0.0-0.4 - X10* 3/uL Basophils Absolute Auto 0.1 0.0-0.2 - X10*3/ uL NRBC Abs Auto 0.000 0.0-0.012 - X10*3/uL L ab:Lipid Panel (Order Date - 11/26/2024) (Collection Date & Time - 11/26/2024 07:15 AM) Value Reference Range Triglycerides 84 <150 - mg/dL Cholesterol 157 <200 - mg/dL LDL Cholesterol Calculated 99 <100 - mg/dL HDL Cholesterol 42 >40 - mg/dL L ab:UA ClnCatch+Micro w/rflx Cult (Order Date - 11/26/2024) (Collection Date & Time - 11/26/2024 07:15 AM) Value Reference Range Color Urine Yellow - Appearance Urine Clear - PH 5.5 5.0-9.0 - Glucose Urine UA Negative Negative - mg/dL Urine Blood Negative Negative - Specific [place] - Urine 1.020 1.005-1.025 - Urine Protein Negative Neg-Trace - mg/dL Urine Ketones Negative Negative - mg/dL Nitrite Urine Negative Negative - Leukocyte Esterase Urine Negative Negative - RBC Urine 0-2 0-2 - /HPF WBC Urine 0-5 0-5 - /HPF Squamous Epithelial Cell Urine 0-2 0-2 - /HP F Bacteria Urine None Seen None Seen - Hyaline Casts Urine 0-2 0-2 - /LPF L ab:Comprehensive Met. Panel (Order Date - 11/26/2024) (Collection Date & Time - 11/26/2024 07:15 AM) Value Reference Range Sodium 143 135-145 - mmol/L Bilirubin Total 0.4 0.0-1.0 - mg/dL Aspartate Amino Transferase 21 5-37 - U/L Alanine Aminotransferase 14 0-40 - U/L Total Protein 6.4 L 6.5-8.0 - g/dL Albumin Level 3.9 3.5-5.0 - g/dL Alkaline Phosphatase 63 39-117 - U/L Potassium 4.4 3.3-5.1 - mmol/L Chloride 112 H 96-108 - mmol/L Carbon Dioxide 28 22-29 - mmol/L Anion Gap 7 L 12-20 - Blood Urea Nitrogen 14 9-16 - mg/dL Creatinine 1.10 0.5-1.4 - mg/dL Estimated Glomerular Filt Rate > 60 - Glucose Random 104 60-115 - mg/dL Calcium 9.2 8.4-10.2 - mg/dL L ab:Liver Panel (Order Date - 08/28/2024) (Collection Date & Time - 08/28/2024 07:15 AM) Value Reference Range Bilirubin Total 0.4 0.0-1.0 - mg/dL Bilirubin Direct 0.2 0.0-0.5 - mg/dL Aspartate Amino Transferase 24 5-37 - U/L Alanine Aminotransferase 12 0-40 - U/L Total Protein 6.2 L 6.5-8.0 - g/dL Albumin Level 3.8 3.5-5.0 - g/dL Alkaline Phosphatase 62 39-117 - U/L * Examination: G eneral Examination: GENERAL APPEARANCE: w ell developed, well nourished, in no acute distress. HEAD: n ormocephalic, atraumatic. EYES: p upils equal, round, reactive to light and accommodation, sclera non-icteric. EARS: n ormal. ORAL CAVITY: m ucosa moist. THROAT: c lear. NECK/THYROID: n heike supple, full range of motion, no cervical lymphadenopathy, no bruits. SKIN: w arm and dry, no suspicious lesions. HEART: r egular rate and rhythm, S1, S2 normal, no murmurs.? LUNGS: c lear to auscultation bilaterally. ABDOMEN: s oft, nontender, nondistended, bowel sounds present, normal, no organomegaly , no masses palpable. RECTAL EXAM: n ormal tone, no external hemorrhoids, no masses palpable, prostate normal, stool guaiac negative. MALE GENITOURINARY: c ircumcised, no testicular mass, testes descended bilaterally. EXTREMITIES: n o clubbing, cyanosis, or edema. NEUROLOGIC: n onfocal, motor strength normal upper and lower extremities, sensory exam intact. Assessment: * Assessment: 1. A nnual physical exam - Z00.00 (Primary) 2 . E levated PSA - R97.20 3 . P rostatism - N40.0 4 . P elvic pain - R10.2 ?5. P ure hypercholesterolemia - E78.00 Plan: * Treatment: 2. P elvic pain I maging: CT ABD & PELVIS WITH CONTRAST Notes: order faxed to [facility] * Immunizations: Fluarix Quadrivalent - 150 (Not administered - Refused: Patient decision) * Procedure Codes: * Preventive Medicine: Counseling: C are goal follow-up plan: C ounseling for abnormal BMI provided?Yes, A lindsay Normal BMI Follow-up G iving encouragement to exercise. Immunizations: I jenifersohanmaykel pickens you had a flu shot since the most recent November 09? N o patient refused at visit today. * Follow Up: a fter cat scan * * Sign off status: Completed true * Provider: Moira Da Silva MD Date: 0 12/03/2024 Generated for Armida dee/Roni/Alannahitting on: 12:51 PM EDT History and Physical Notes * HPI (History of Present Illness) Category Sub-Category Detail Notes Category Not es Symptom(s) Patient is a 69 yo male here for annual visit with review of recent labs and follow up of chronic issues. having pain in pelvic area. had some kidney stones. Depression Screening PHQ-9 Little inte rest or pleasure in doing things: Not at all Feeling down, depressed, or hopeless: No t [...] way: Not at all Total Score: 0 Interpretation and Intervention Depression Khadijah schultz Findings: Negative Follow-Up for Depression: : review of PH Q-9 found negative result, no follow-up needed SDOH Questions SDOH Questions In the past year have you been worried about losing housing?: No In the past year have you or any family members you live with been unable to get any of the following when it was really needed? Check all that apply:: None Fall Risk History Have you had any falls with injury i n the past year?: No Have you had two or more falls in the st year?: No Communication Needs Communication Needs Does the patient have a hearing impairment: No Does the patient have a vision impairmen t?: Yes If yes, what is the vision impairment?: Glasses Does the patient have a cognition impair ment?: No Examination Category Sub-Category Detail Notes Category Not es General Examination GENERAL APPEARANCE: well dev eloped, well nourished, in no acute distress HEAD: normocephalic, atrau matic EYES: pupils equal, round, reactive to light and accommodation, sclera non-icteric EARS: normal THROAT: clear NECK/THYROID: neck supple, full ra nge of motion, no cervical lymphadenopathy, no bruits HEART: regular rate and rhy thm, S1, S2 normal, no murmurs LUNGS: clear to auscultatio n bilaterally ABDOMEN: soft, nontender, non distended, bowel sounds present, normal, no organomegaly , no masses palpable NEUROLOGIC: nonfocal, motor stre ngth normal upper and lower extremities, sensory exam intact SKIN: warm and dry, no rock picious lesions EXTREMITIES: no clubbing, cyanosi s, or edema MALE GENITOURINARY: circumcised, no test icular mass, testes descended bilaterally RECTAL EXAM: normal tone, no exte rnal hemorrhoids, no masses palpable, prostate normal, stool guaiac negative ORAL CAVITY: mucosa moist
--- OUTSIDE RECORDS SUMMARY | 2024-12-14 04:45 | XMS_ITS ---
Author Organization Yosi Da Silva MD Address [address] [place], [place] [phone] Care Team Providers Care Typists Supervisor Name Role Phone KarlYosi tran Primary Care Provider Results Component Value Reference Range Notes PSA,Total (Free>4and<10) Reviewed date:12/14/2024 12:30:24 PM Interpretation: Performing Lab:[facility], [address] [place] [phone] Notes/Report: PSA,Total (Free>4and<10) 2.86 0.00-4.00 ng/mL A Free PSA was not [...] between 4.0 and 10.0 ng/mL. PSA methodology: TimeSight Systemsnity i Chemiluminescent Microparticle Immunoassay (CMIA) REASON FOR VISIT PSA Encounters Encounter Location Date Provider Diagnosis Yosi Da Silva MD [address] [place], [place] [phone] 12/14/2024 Yosi Da Silva Elevated PSA R97.20 Assessments Encounter Date Diagnosis (ICD Code) Assessment Notes Treatment Notes Treatment Clinical Notes Section Notes 12/14/2024 Elevated PSA (ICD-10 - R97.20) Plan Of Treatment Next Appt Details Provider Name:Yosi rocha, 05/27/2025 08:00:00 AM, [address] [place] [address], [address], [place], [place], [phone], Provider Name:Yosi rocha, 06/03/2025 09:00:00 AM, [address] [place] [address], Suite [facility], [place], [place], [phone], Provider Name:Yosi rocha, 11/29/2025 07:30:00 AM, [address] [place] [address], Suite [facility], [place], [place], [phone], Provider Name:Yosi rocha, 12/06/2025 09:30:00 AM, [address] [place] [address], Suite [facility], [place], [place], [phone], Progress Notes * Heriberto BOODOB:1955 (69 yo M)Acc No.[id number]:12/14/2024 Progress Note Patient: Heriberto LYLE Provider: Moira Da Silva MD :1955 A ge:69 Y S ex:Male Date:12/14/2024 Address:[address] [place], [place] [phone] Subjective: * Chief Complaints: * 1 . PSA. * Medical History: Objective: * Vitals: Assessment: * Assessment: 1. E levated PSA - R97.20 (Primary) Plan: * Treatment: * * The named appointment provid er may or may not be the originator of this progress note, and it is not deemed complete until electronically signed by the appointment provider. Sign off status: Pending * Provider: Moira Da Silva MD Date: 1 Generated for Armida dee/Roni/eTransmitting on: 1 12:50 PM EDT
[2024-12-14 11:43] LABS: PSA,Total (Free>4and<10) 2.86 ng/mL (0.00-4.00)
--- OUTSIDE RECORDS SUMMARY | 2024-12-14 12:50 | XMS_ITS | Patient Health Record ---
Author Organization [facility] Address [address] [place] [phone] Care Team Providers Care Siebel Crm Developer Name Role Phone Rekha OSUNA, Yosi Primary Care Provider Karel Delgadillo [phone] Allergies Allergen (clinical drug ingredient) Drug/Non Drug Allergy documented on EMR Reaction Allergy Type Onset Date Status ENVIROMENTAL ALLERGI ES (uncoded) Unknown Allergy Active Reason For Referral No Information Medications Medication SIG (Take, Route, Frequency, Duration) Notes Start Date End Date Status Stelara 45 MG/0.5ML Subcutaneous Active Terazosin HCl Active Simvastatin Active Pantoprazole Sodium Active albuterol Active Ketotifen Fumarate Eyedropps A ctive Fluticasone Propionate Nasal spray Active Dulera Inhaler Active Problems Problem Type SNOMED Code ICD Code Onset Dates Problem Status W/U Status Risk Notes Problem 789988671 Gastroesophageal reflux disease without esophagitis (K21.9) Active confirmed Problem 78618779 Heme positive st ool (R19.5) Active confirmed Plan Of Treatment Future Test Test Name Order Date COLONOSCOPY 09/15/2015 Insurance Providers Payer Name Payer Address Payer Phone Subscriber Number Group Number Insured Name Patient Relationship to Insured Coverage Start Date Coverage End Date [facility] [address] [place], [place] [id number] [phone] [id number] ADOLFO SCHNEIDER Self - patient is the insured Medical (General) History Medical History History ICD Code Screening Colonoscopy 2007--negative except for mild sigmoid diverticulosis and small internal hemorrhoids GERD-EGD 2003--small hiatal hernia--no e sophagitis nor Reed's esophagus Asthma Psoriasis/Psoriatic arthritis Hyperlipidemia BPH Denies RI,DM,CVA,renal disease Surgical History Surgery Date(Month/Year) Right index finger reconstructed Dr. Thomas Stahl/umbilical hernia Shoulder reconstruction right Tonsillectomy and adenoidectomy Appendectomy
--- OUTSIDE RECORDS SUMMARY | 2024-12-14 12:50 | XMS_ITS | Patient Health Record ---
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 Role Phone Yosi Da Silva Primary Care Provider [phone] Allergies No Known Allergies Results Component Value Reference Range Notes Liver Panel Reviewed date:05/19/2024 02:05:03 PM Interpretation: Performing Lab:[facility], [address] [place] [phone] Notes/Report: Bilirubin Total 0.4 0.0-1.0 mg/dL Bilirubin Direct 0.2 0.0-0.5 mg/dL Aspartate Amino Transferase 25 5-37 U/L Alanine Aminotransferase 12 0-40 U/L Total Protein 7.0 6.5-8.0 g/dL Albumin Level 3.9 3.5-5.0 g/dL Alkaline Phosphatase 58 39-117 U/L Lipid Panel with Reflex Reviewed date:05/19/2024 02:05:31 PM Interpretation: Performing Lab:[facility], [address] [place] [phone] Notes/Report: Triglycerides 67 <150 mg/dL Desirable Triglyceride: less than 150 mg/dL Borderline High Triglyceride 150-199 mg/dL High Triglyceride: 200-499 mg/dL Very High Triglyceride: greater than or equal to 5OO mg/dL Cholesterol 172 <200 mg/dL Desirable Cholesterol: less than 200 mg/dL Borderline High Cholesterol: 200-239 mg/dL High Cholesterol: greater than 239 mg/dL LDL Cholesterol Calculated 113 <100 mg/dL Desirable LDL: less than 100 mg/dL Near Optimal/Above Optimal LDL: 110-129 mg/dL Borderline High LDL: 130-159 mg/dL High LDL: 160-189 mg/dL Very High LDL: greater than or equal to 190 mg/dL HDL Cholesterol 46 >40 mg/dL Desirable HDL: greater than 40 mg/dL Note: This HDL assay may give artificially low results in patients with liver disease. Liver Panel Reviewed date:08/28/2024 04:36:48 PM Interpretation: Performing Lab:[facility], [address] [place] [phone] Notes/Report: Bilirubin Total 0.4 0.0-1.0 mg/dL Bilirubin Direct 0.2 0.0-0.5 mg/dL Aspartate Amino Transferase 24 5-37 U/L Alanine Aminotransferase 12 0-40 U/L Total Protein 6.2 6.5-8.0 g/dL Albumin Level 3.8 3.5-5.0 g/dL Alkaline Phosphatase 62 39-117 U/L Lipid Panel Reviewed date:08/28/2024 04:36:36 PM Interpretation: Performing Lab:[facility], [address] [place] [phone] Notes/Report: Triglycerides 72 <150 mg/dL Desirable Triglyceride: [...] low results in patients with liver disease. Complete Blood Count Auto Di ff Reviewed date:11/26/2024 12:33:09 PM Interpretation: Performing Lab:[address] [phone] Notes/Report: White Blood Count 6.4 4.8-10.8 X10*3/uL [...] Panel Reviewed date:11/26/2024 12:22:46 PM Interpretation: Performing Lab:[facility], [address] [place] [phone] Notes/Report: Triglycerides 84 <150 mg/dL Desirable Triglyceride: [...] disease. PSA,Total (Free>4and<10) Reviewed date:12/03/2024 09:09:16 AM Interpretation:[facility] 12/03 Performing Lab:[address] [phone] Notes/Report: PSA,Total (Free>4and<10) 3.34 0.00-4.00 ng/mL A [...] t Reviewed date:11/26/2024 12:25:53 PM Interpretation: Performing Lab:[address] [phone] Notes/Report: Urine, Clean Catch Color Urine Yellow Appearance Urine Clear PH 5.5 5.0-9.0 Glucose Urine UA Negative Negative mg/dL Urine Blood Negative Negative Specific [place] - Urine 1.020 1.005-1.025 Urine Protein Negative Neg-Trace mg/dL Urine Ketones Negative Negative mg/dL Nitrite Urine Negative Negative Leukocyte Esterase Urine Negative Negative RBC Urine 0-2 0-2 /HPF WBC Urine 0-5 0-5 /HPF Squamous Epithelial Cell Urine 0-2 0-2 /HPF Bacteria Urine None Seen None Seen Hyaline Casts Urine 0-2 0-2 /LPF PSA,Total (Free>4and<10) Reviewed date:12/14/2024 12:30:24 PM Interpretation: Performing Lab:[address] [phone] Notes/Report: PSA,Total (Free>4and<10) 2.86 0.00-4.00 ng/mL A [...] Perez Alinity i Chemiluminescent Microparticle Immunoassay (CMIA) Gwendolyn Abad Reviewed date:05/19/2024 12:14:45 PM Interpretation: Performing Lab:[address] [phone] Notes/Report: Gwendolyn Abad See Note Specimen held untested for 24 hours; Call to request Chemistry testing. Rubeola IgG (Measles) Reviewed date:05/28/2024 08:50:09 AM Interpretation: Performing Lab:[address] [phone] Notes/Report: Rubeola IgG (Measles) 273.00 AU/mL Interpretation ----- <13.50 Not consistent with immunity 13.50-16.49 Equivocal >16.49 Consistent with immunity The presence of measles IgG suggests immunization or past or current infection with measles virus. For additional information, please refer to http://education.Rewardli/faq/RFM247 (This link is being provided for informational/ educational purposes only.) THIS TEST WAS PERFORMED AT: [facility] [address] [place] [phone] ESPINOZA BRUNO MD Comprehensive Met. Panel Reviewed date:11/26/2024 12:33:23 PM Interpretation: Performing Lab:[facility], [address] [place] [phone] Notes/Report: Sodium 143 135-145 mmol/L Potassium 4.4 3.3-5.1 mmol/L Chloride 112 96-108 mmol/L Carbon Dioxide 28 22-29 mmol/L Anion Gap 7 12-20 Blood Urea Nitrogen 14 9-16 mg/dL Creatinine 1.10 0.5-1.4 mg/dL Estimated Glomerular Filt Rate > 60 Chronic Kidney Disease: Estimated GFR < 60 mL/min/1.73m2 Severe Kidney Disease: Estimated GFR < 15 mL/min/1.73m2 Glucose Random 104 60-115 mg/dL Calcium 9.2 8.4-10.2 mg/dL Bilirubin Total 0.4 0.0-1.0 mg/dL Aspartate Amino Transferase 21 5-37 U/L Alanine Aminotransferase 14 0-40 U/L Total Protein 6.4 6.5-8.0 g/dL Albumin Level 3.9 3.5-5.0 g/dL Alkaline Phosphatase 63 39-117 U/L Reason For Referral No Information Medications Medication [...] 2 puffs Inhalation Twice a day Not-Taking Nasacort AQ Active EpiPen 2-Ruiz 0.3 MG/0.3ML Injection Not-Taking Opzelura 1.5 % 1 application 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 Land Surveyor ally Twice a day Active Skyrizi (150 MG Dose) 75 MG/0.83ML 1.66 ml Subcutaneous once every 3 months Active Terazosin HCl 5 MG 2 capsule Orally Onc e a day Active Flonase 50 MCG/ACT 1 spray in each nost ril Nasally Once a day Active Pantoprazole Sodium 40 MG 1 tablet Orally Once a day for 90 days Active Immunizations Vaccine Route Administration Date Status [...] Fluarix Quadrivalent - 150 Unknown 11/22/2023 Refused Fluarix Quadrivalent - 150 Unknown 12/03/2024 Refused [...] Problem Status W/U Status Risk Notes Problem 31156662 Prostatism (N40.0) Active confirmed Problem 352708672 Mild persistent asthma without complication (J45.30) Active confirmed Problem 526890481 Pure hypercholesterolemia (E78.00) Active confirmed Problem 520776290 Elevated PSA (R97.20) Active confirme d Vital Signs Blood pressure diastolic 84 mm Hg 12/03/2024 florina ght is down 8 pounds since 05-26-24 Height 70.25 in 12/03/2024 weight is down 8 pounds since 05-26-24 Blood pressure systolic 112 mm Hg 12/03/2024 weig ht is down 8 pounds since 05-26-24 Weight 210 lbs 12/03/2024 weight is down 8 pounds since 05-26-24 BMI 29.91 kg/m2 12/03/2024 weight is down 8 pounds since 05-26-24 Encounters Encounter Location Date Provider Diagnosis Yosi Da Silva MD [address] [place] [id number] 05/19/2024 Yosi Da Silva Pure hypercholestero lemia E78.00 Yosi Da Silva MD [address] [place] [id number] 08/28/2024 Yosi Da Silva Immunity status test ing Z01.84 Yosi Da Silva MD [address] [place] [id number] 11/26/2024 Yosi Da Silva Blood tests for rout ine general physical examination Z00.00 ; Pure hypercholesterolemia E78.00 and Elevated PSA R97.20 Yosi Da Silva MD [address] [place] [id number] 12/14/2024 Yosi Da Silva Elevated PSA R97.20 Yosi Da Silva MD [address] [place] [id number] 12/16/2023 Yosi Da Silva Injury of left ankle , initial encounter S99.912A Yosi Da Silva MD [address] [place] [id number] 05/26/2024 Yosi Da Silva Immunity status test ing Z01.84 and Pure hypercholesterolemia E78.00 Yosi Da Silva MD [address] [place] [id number] 12/03/2024 Yosi Da Silva Annual physical exam Z00.00 ; Elevated PSA R97.20 ; Prostatism N40.0 ; Pelvic pain R10.2 and Pure hypercholesterolemia E78.00 Assessments Encounter Date Diagnosis (ICD Code) Assessment Notes Treatment Notes Treatment Clinical Notes Section Notes 05/19/2024 Pure hypercholesterolemia (ICD-10 - E78.00) 08/28/2024 Immunity status test ing (ICD-10 - Z01.84) 11/26/[address] ine general physical examination (ICD-10 - Z00.00) 12/14/2024 Elevated PSA (ICD-10 - R97.20) 12/16/2023 Injury of left ankle , initial encounter (ICD-10 - S99.912A) has improved and able to walkearound and work in yard. xray was negative. 05/26/2024 Immunity status test ing (ICD-10 - Z01.84) 12/03/2024 Annual physical exam (ICD-10 - Z00.00) 12/03/2024 Elevated PSA (ICD-10 - R97.20) 11/26/2024 Pure hypercholesterolemia (ICD-10 - E78.00) 05/26/2024 Pure hypercholesterolemia (ICD-10 - E78.00) 12/03/2024 Prostatism (ICD-10 - N40.0) 11/26/2024 Elevated PSA (ICD-10 - R97.20) 12/03/2024 Pelvic pain (ICD-10 - R10.2) order faxed to [facility] 12/03/2024 Pure hypercholesterolemia (ICD-10 - E78.00) Plan Of Treatment Pending Test Test Name Order Date Electrocardiogram (EKG) 05/03/2011 Electrocardiogram (EKG) 06/17/2015 Electrocardiogram (EKG) 07/17/2018 MEASLES ANTIBODY (IGG) 05/26/2024 CT ABD & PELVIS WITH CONTRAST 12/03/2024 Comprehensive [place]. Panel Fast PSA,Total (Free>4and<10) 12/03/2024 Next Appt Details Provider Name:Yosi rocha, 05/27/2025 08:00:00 AM, [address] [place] [address], [address] [place] [address], [phone], Provider Name:Yosi lyr, 06/03/2025 09:00:00 AM, [address] [place] [address], Suite [facility], [place], [place], [phone], Provider Name:Yosi lyr, 11/29/2025 07:30:00 AM, [address] [place] [address], Suite [facility], [place], [place], [phone], Provider Name:Yosi lyr, 12/06/2025 09:30:00 AM, [address] [place] [address], [address] [place] [address], [phone], Insurance Providers Payer Name Payer Address Payer Phone Subscriber Number Group Number Insured Name Patient Relationship to Insured Coverage Start Date Coverage End Date [employer] [address] [place], [place] [id number] Heriberto Schneider Self - patient is the insured Medical (General) History Medical History History ICD Code PT off EMBREL FOR ARTHRITIS and brandi colonoscopy 2007; colonoscopy 10/28/15 w/ Dr. Patterson - repeat 10 yrs. Enlarged prostate without lower urinary tract symptoms zylar a new med for psoriasis and arthri tis History of vertigo Z87.898 History of vertigo tetanus shot 2024 Surgical History Surgery Date(Month/Year) Repair of RT Inguinal Hernnia w/Mesh (Dr Jona White) 07/2017
== END 2024-12-14 10:44 | disposition home or self-care (01) ==
LOC: HO.LNP 10:43
PROVIDERS: Visit Provider Internal Medicine
DX: Z00.00 Encounter for general adult medical examination without abnormal findings (principal); Z12.5 Encounter for screening for malignant neoplasm of prostate
CPT/HCPCS: 84153